=== PATIENT | female | born 1945 | race Caucasian/White ===

== ENCOUNTER → 2022-05-22 | Outpatient (CLI) | payer MEDICARE, BC, SELFPAY ==
[2022-05-22 12:08] LABS: Hematocrit 38.8 % (37-47); Hemoglobin 12.3 g/dL (12.0-15.0); Mean Corp Hgb Conc 31.7 g/dL (32-36); Mean Corpuscular Hgb 30.9 pg (27.0-32.0); Mean Corpuscular Volume 97.5 fL (81-99); Mean Platelet Vol. 10.7 fl (6.2-12.0); Platelet Count 245 K/mm3 (150-450); RBC Distribution Width CV 12.9 % (11.6-14.6); RBC Distribution Width SD 46.5 fl (35.1-43.9); Red Blood Count 3.98 M/mm3 (4.2-5.4); White Blood Count 5.4 K/mm3 (4.4-11.0)
[2022-05-22 12:25] LABS: Hemoglobin A1c 5.5 % (3.8-5.6)
[2022-05-22 12:29] LABS: Vitamin D,25 Hydroxy 81.5 ng/mL
[2022-05-22 12:58] LABS: ALB/GLOB Ratio 0.9 RATIO (0.9-2.4); AST(SGOT) 22 U/L (15-37); Alanine Aminotransfer ALT/SGPT 23 U/L (13-56); Albumin, Serum 3.3 g/dL (3.2-5.0); Alkaline Phosphatase 72 U/L (45-117); Anion Gap 8 (5-15); BUN 16 mg/dL (7-18); BUN/Creat Ratio 23.6 RATIO (10-20); Calcium,Total 9.1 mg/dL (8.5-10.1); Chloride 107 mmol/L (98-107); Cholesterol 148 mg/dL (200); Creatinine, Serum 0.68 mg/dL (0.55-1.02); EST Glomerular Filtration Rate 89 mL/min (>60); Est Glom Filt Rate - Afr Amer 108 mL/min (>60); Globulin 3.8 g/dL (2.2-4.2); Glucose 96 mg/dL (74-106); High Density Lipoprotein 60 mg/dL; Potassium 4.4 mmol/L (3.5-5.1); Protein, Total 7.1 g/dL (6.4-8.2); Sodium Level 140 mmol/L (136-145); Thyroid Stim Hormone (TSH) 4.01 uIU/mL (0.358-3.74); Triglycerides 88 mg/dL; Very Low Density Lipoprotein 18 mg/dL (5-40)
[2022-05-23 08:59] LABS: LDL, Direct 120295 78 mg/dL (0-99)
== END | disposition home or self-care (01) ==
PROVIDERS: PCP Family Medicine; Referring Provider Family Medicine; Visit Provider Family Medicine
DX: I11.0 Hypertensive heart disease with heart failure (principal); I50.9 Heart failure, unspecified; E11.9 Type 2 diabetes mellitus without complications; E78.2 Mixed hyperlipidemia; E03.9 Hypothyroidism, unspecified; E55.9 Vitamin D deficiency, unspecified
CPT/HCPCS: 36415; 80053; 80061; 82306; 83036; 83721; 84443; 85027

== ENCOUNTER → 2023-05-23 | Outpatient (CLI) | payer MEDICARE, BC, SELFPAY ==
[2023-05-23 12:27] LABS: Absolute Lymphocyte Count 1.29 X10^3/uL (0.83-4.51); Absolute Neutrophil Count 2.7 X10^3/uL (2.0-7.7); Basophil# 0.02 X10^3/uL; Basophil% 0.4 % (0-1); Eosinophil# 0.16 X10^3/uL; Eosinophils% 3.5 % (0-5); Hematocrit 40.6 % (37-47); Hemoglobin 12.6 g/dL (12.0-15.0); Lymphocyte # 1.29 X10^3/ul (0.83-4.51); Lymphocyte % 27.9 % (19-41); Mean Corpuscular Hgb 30.3 pg (27.0-32.0); Mean Corpuscular Volume 97.6 fL (81-99); Mean Platelet Vol. 10.8 fl (6.2-12.0); Monocyte# 0.46 X10^3/uL; NRBC Flagged by Analyzer 0 % (0-5); Neutrophil # 2.68 X10^3/uL (2.7-7.7); Platelet Count 233 K/mm3 (150-450); RBC Distribution Width CV 12.8 % (11.6-14.6); RBC Distribution Width SD 45.6 fl (35.1-43.9); Red Blood Count 4.16 M/mm3 (4.2-5.4); White Blood Count 4.6 K/mm3 (4.4-11.0)
[2023-05-23 13:02] LABS: ALB/GLOB Ratio 0.9 RATIO (0.9-2.4); AST(SGOT) 24 U/L (15-37); Alanine Aminotransfer ALT/SGPT 22 U/L (13-56); Albumin, Serum 3.5 g/dL (3.2-5.0); Alkaline Phosphatase 72 U/L (45-117); Anion Gap 4 (5-15); BUN 15 mg/dL (7-18); BUN/Creat Ratio 20.3 RATIO (10-20); Chloride 105 mmol/L (98-107); Cholesterol 160 mg/dL (200); Creatinine, Serum 0.74 mg/dL (0.55-1.02); EST Glomerular Filtration Rate 81 mL/min (>60); Est Glom Filt Rate - Afr Amer 98 mL/min (>60); Globulin 3.8 g/dL (2.2-4.2); Glucose 103 mg/dL (74-106); High Density Lipoprotein 66 mg/dL; Potassium 4.5 mmol/L (3.5-5.1); Protein, Total 7.3 g/dL (6.4-8.2); Sodium Level 139 mmol/L (136-145); Triglycerides 99 mg/dL; Very Low Density Lipoprotein 20 mg/dL (5-40)
[2023-05-23 13:35] LABS: Hemoglobin A1c 5.6 % (3.8-5.6)
== END | disposition home or self-care (01) ==
PROVIDERS: PCP Family Medicine; Referring Provider Family Medicine; Visit Provider Family Medicine
DX: E11.65 Type 2 diabetes mellitus with hyperglycemia (principal); E78.2 Mixed hyperlipidemia
CPT/HCPCS: 36415; 80053; 80061; 83036; 85025

== ENCOUNTER → 2023-10-22 | Outpatient (CLI) | payer MEDICARE, BC, SELFPAY ==
[2023-10-22 12:31] LABS: Absolute Lymphocyte Count 1.72 X10^3/uL (0.83-4.51); Absolute Neutrophil Count 2.9 X10^3/uL (2.0-7.7); Basophil# 0.03 X10^3/uL; Basophil% 0.5 % (0-1); Eosinophil# 0.28 X10^3/uL; Eosinophils% 5.1 % (0-5); Hematocrit 37.8 % (37-47); Hemoglobin 11.7 g/dL (12.0-15.0); Lymphocyte # 1.72 X10^3/ul (0.83-4.51); Lymphocyte % 31.5 % (19-41); Mean Corpuscular Hgb 30.9 pg (27.0-32.0); Mean Corpuscular Volume 99.7 fL (81-99); Monocyte% 9.2 % (0-10); NRBC Flagged by Analyzer 0 % (0-5); Neutrophil # 2.92 X10^3/uL (2.7-7.7); Neutrophil % 53.5 % (47-70); Platelet Count 219 K/mm3 (150-450); RBC Distribution Width CV 13.2 % (11.6-14.6); RBC Distribution Width SD 48.3 fl (35.1-43.9); Red Blood Count 3.79 M/mm3 (4.2-5.4); White Blood Count 5.5 K/mm3 (4.4-11.0)
[2023-10-22 12:59] LABS: Microalbumin,Random Urine 53.4 mg/L (NO RANGE EST.)
[2023-10-22 13:11] LABS: ALB/GLOB Ratio 0.9 RATIO (0.9-2.4); AST(SGOT) 27 U/L (15-37); Alanine Aminotransfer ALT/SGPT 28 U/L (13-56); Albumin, Serum 3.4 g/dL (3.2-5.0); Alkaline Phosphatase 90 U/L (45-117); Anion Gap 6 (5-15); BUN 20 mg/dL (7-18); BUN/Creat Ratio 24.7 RATIO (10-20); Calcium,Total 8.6 mg/dL (8.5-10.1); Chloride 104 mmol/L (98-107); Cholesterol 146 mg/dL (200); Creatinine, Serum 0.81 mg/dL (0.55-1.02); EST Glomerular Filtration Rate 72 mL/min (>60); Est Glom Filt Rate - Afr Amer 88 mL/min (>60); Globulin 3.8 g/dL (2.2-4.2); Glucose 82 mg/dL (74-106); High Density Lipoprotein 59 mg/dL; Potassium 5.2 mmol/L (3.5-5.1); Protein, Total 7.2 g/dL (6.4-8.2); Sodium Level 135 mmol/L (136-145); Triglycerides 106 mg/dL; Very Low Density Lipoprotein 21 mg/dL (5-40)
[2023-10-22 14:57] LABS: Hemoglobin A1c 5.7 % (3.8-5.6)
== END | disposition home or self-care (01) ==
LOC: MTLAB 09:55
PROVIDERS: PCP Family Medicine; Referring Provider Family Medicine; Visit Provider Family Medicine
DX: I10 Essential (primary) hypertension (principal); E11.65 Type 2 diabetes mellitus with hyperglycemia; E03.9 Hypothyroidism, unspecified
CPT/HCPCS: 80053; 80061; 82043; 82570; 83036; 84443; 85025

== ENCOUNTER → 2024-04-29 | Outpatient (CLI) | payer MEDICARE, BC, SELFPAY ==
[2024-04-29 13:14] LABS: Absolute Lymphocyte Count 1.62 X10^3/uL (0.83-4.51); Absolute Neutrophil Count 3.1 X10^3/uL (2.0-7.7); Basophil# 0.02 X10^3/uL; Basophil% 0.4 % (0-1); Eosinophils% 3.7 % (0-5); Hematocrit 41.7 % (37-47); Hemoglobin 12.6 g/dL (12.0-15.0); Lymphocyte # 1.62 X10^3/ul (0.83-4.51); Lymphocyte % 29.9 % (19-41); Mean Corp Hgb Conc 30.2 g/dL (32-36); Mean Corpuscular Volume 102.7 fL (81-99); Mean Platelet Vol. 11.5 fl (6.2-12.0); Monocyte# 0.46 X10^3/uL; Monocyte% 8.5 % (0-10); NRBC Flagged by Analyzer 0 % (0-5); Neutrophil # 3.09 X10^3/uL (2.7-7.7); Neutrophil % 56.9 % (47-70); Platelet Count 190 K/mm3 (150-450); RBC Distribution Width CV 13.1 % (11.6-14.6); RBC Distribution Width SD 49.6 fl (35.1-43.9); Red Blood Count 4.06 M/mm3 (4.2-5.4); White Blood Count 5.4 K/mm3 (4.4-11.0)
[2024-04-29 19:19] LABS: ALB/GLOB Ratio 1.3 RATIO (0.9-2.4); AST(SGOT) 28 U/L (<=31); Alanine Aminotransfer ALT/SGPT 18 U/L (<=34); Alkaline Phosphatase 87 U/L (35-104); Anion Gap 13 (5-15); BUN 18 mg/dL (4-19); BUN/Creat Ratio 28.5 RATIO (10-20); Calcium 9.8 mg/dL (7.6-11.0); Carbon Dioxide 22.2 mmol/L (22.0-29.0); Chloride 104 mmol/L (96-108); Creatinine, Serum 0.6 mg/dL (0.6-1.0); EST Glomerular Filtration Rate 90 (>60); Globulin 3.1 g/dL (2.2-4.2); Glucose 89 mg/dL (70-99); Potassium 5.3 mmol/L (3.3-5.1); Protein, Total 7.1 g/dL (5.9-8.4); Sodium Level 139 mmol/L (133-145)
[2024-04-30 12:00] LABS: Cholesterol 144 mg/dL (<=200); High Density Lipoprotein 61 mg/dL; Low Density Lipoprotein Calc. 62 mg/dL; Triglycerides 102 mg/dL; Very Low Density Lipoprotein 20 mg/dL (5-40); cholesterol:hdl ratio screen 2.35
[2024-04-30 13:44] LABS: Microalbumin,Random Urine 28.8 mg/L (NO RANGE EST.)
== END | disposition home or self-care (01) ==
LOC: MTLAB 09:34
PROVIDERS: PCP Family Medicine; Referring Provider Family Medicine; Visit Provider Family Medicine
DX: E03.9 Hypothyroidism, unspecified (principal); E11.65 Type 2 diabetes mellitus with hyperglycemia; I10 Essential (primary) hypertension; E78.2 Mixed hyperlipidemia
CPT/HCPCS: 36415; 80053; 80061; 82043; 82570; 83036; 85025

== ENCOUNTER → 2024-10-13 | Outpatient (CLI) | payer MEDICARE, BC, SELFPAY ==
--- OUTSIDE RECORDS SUMMARY | 2024-10-13 08:59 | XMS RPT_ITS | CCD ---
Author Organization [facility] CliniSyct Care Team Providers Care Brass Roller Name Role Phone Anabella Pena Primary Care Provider ANABELLA PENA Primary Care Unavailable NANCY DONOVAN Referring Unavailable NANCY DONOVAN Attending Unavailable ANABELLA PENA Primary Care Unavailable SELF Referring Unavailable NANCY DONOVAN Attending Unavailable ANABELLA PENA Primary Care Unavailable AYLIN REILLY Attending Unavailable INDIRA ISABEL Primary Care Unavailable Jean ESQUEDA, Dr. Rand Primary Care Provider INDIRA ISABEL DO Attending Provider [phone] INDIRA ISABEL DO Referring Provider INDIRA ISABEL Referring Unavailable INDIRA ISABEL Attending Unavailable Anabella Pena Primary Care Unavailable Anabella Pena Primary Care Unavailable INDIRA ISABEL Referring Unavailable INDIRA ISABEL Attending Unavailable Medications Current Medications Medication Drug Class(es) Dates Sig (Normalized) Sig (Original) ANTIOX #8/OM3/DHA/EPA/LUT/ZEAX (PRESERVISION AREDS 2, OMEGA-3, ORAL) (10 sources) ANTIOX #8/OM3/DHA/EPA/LUT/ZEAX (PRESERVISION AREDS 2, OMEGA-3, ORAL) Take by mouth two times a day. Active ANTIOX #8/OM3/DH A/EPA/LUT/ZEAX (PRESERVISION AREDS 2, OMEGA-3, ORAL) Take by mouth two times a day. 0 Active ANTIOX #8/OM3/DH A/EPA/LUT/ZEAX (PRESERVISION AREDS 2, OMEGA-3, ORAL) Take by mouth twice daily. 0 Active Comment on above: Take by mouth twice daily. aspirin 81 mg chewable tablet (10 sources) Platelet Aggregation Inhibitor, Nonsteroidal Anti-inflammatory Drug Start: 04-17-2008 take 1 tablet by mouth once daily ASPIRIN 81 MG CHEWABLE TAB 1 Tab PO DAILY 30 0 04/17/2008 Active Start: 04-17-2008 take 1 tablet by mark once daily ASPIRIN 81 MG CHEWABLE TAB 1 Tab PO DAILY 30 0 04/17/2008 Active Comment on above: 1 Tab PO DAILY atorvastatin 20 mg oral tablet (10 sources) HMG-CoA Reductase Inhibitor Start: take 1 tablet by mouth once daily atorvastatin (LIPITOR) 20 mg tablet Take 1 tablet by mouth once daily. 90 tablet 3 07/16/2012 Active Comment on above: Take 1 tablet by mark once daily. benoxinate hydrochloride 4 mg/ml / fluorescein sodium 3 mg/ml ophthalmic solution (1 source) Diagnostic Dye Start: End: fluorescein-benoxin ate 0.3-0.4 % 1 Drop (FLURESS) carvedilol 12.5 mg oral tablet (10 sources) alpha-Adrenergic Brian, beta-Adrenergic Brian Start: take 1 tablet by mouth twice daily at mealtime carvedilol (COREG) 12.5 mg tablet Take 1 tablet by mouth twice daily with meals. 0 07/16/2012 Active Comment on above: Take 1 tablet by mark twice daily with meals. cholecalciferol 0.125 mg oral capsule (10 sources) Vitamin D Start: take 1 capsule by mouth once daily Cholecalciferol, Vitamin D3, 5,000 unit cap Take 1 capsule by mouth once daily. 06/20/2018 Active Comment on above: Take 1 capsule by [facility] once daily. insulin glargine 100 unt/ml injectable solution (10 sources) Insulin Analog Start: 013 insulin glargine (LANTUS) 100 unit/mL injection 48 units at bedtime 0 07/16/2012 Active Comment on above: 48 units at bedtime insulin glulisine, human 100 unt/ml injectable solution (10 sources) Insulin Analog Start: 009 inject 7 [IU] by subcutaneous injection at mealtime insulin glulisine(APIDRA 100 UNIT/ML SUB-Q) Take 7 units with each meal and sliding scale 0 12/25/2008 Active Comment on above: Take 7 units with ea ch meal and sliding scale levothyroxine sodium 0.025 mg oral tablet (10 sources) l-Thyroxine Start: 010 levothyroxine sodium(SYNTHROID 25 MCG TAB) Take one(1) tablet daily and 1.5 tablets on Sunday and Sunday 0 10/15/2009 Active Comment on above: Take one(1) tablet d aily and 1.5 tablets on Sunday and Sunday lisinopril 5 mg oral tablet (10 sources) Angiotensin Converting Enzyme Inhibitor Start: 013 take 1 tablet by mouth twice daily lisinopril (ZESTRIL) 5 mg tablet Take 1 tablet by mouth twice daily. 07/16/2012 Active Comment on above: Take [address] [facility] twice daily. PARoxetine hydrochloride 20 mg oral tablet (10 sources) Serotonin Reuptake Inhibitor Start: 009 paroxetine hcl(PAXIL 20 MG TAB) Take one(1) tablet daily. 0 07/15/2008 Active Comment on above: Take one(1) tablet d aily. phenylephrine hydrochloride 25 mg/ml ophthalmic solution (3 sources) alpha-1 Adrenergic Agonist Start: 025 End: 025 PHENYLephrine 2.5 % 1 Drop (AK-DILATE, CARLENE-SYNEPHRINE) Start: 04-10-2024 End: 04-10-2024 1 Drop, BOTH EYES, DIRECT ED, Starting on Kelly 04/10/24 at 0900, Until Kelly 04/10/24 at 2058, Administer for dilation PROTECT FROM LIGHT, [facility] MED ORDERS Start: 10-04-2023 End: 10-04-2023 PHENYLephrine 2.5 % 1 Drop ( AK-DILATE, CARLENE-SYNEPHRINE) proparacaine hydrochloride 5 mg/ml ophthalmic solution (3 sources) Local Anesthetic Start: 04-10-2024 End: 04-10-2024 proparacaine 0.5 % 1 Drop (ALCAINE) Start: 04-10-2024 End: 04-10-2024 1 Drop, BOTH EYES, DIRECT ED, Starting on Kelly 04/10/24 at 0900, Until Kelly 04/10/24 at 2058, Administer for pneumo tonometry, tonopen tonometry, or pachymetry. In the event of a proparacaine shortage, administer 1 drop of tetracaine 0.5% ophthalmic drops into both eyes as directed for pneumo tonometry, tonopen tonometry, or pachymetry, OPHT CLINIC MED ORDERS Start: 10-04-2023 End: 10-04-2023 proparacaine 0.5 % 1 Drop (A LCAINE) SEMGLEE,INSULIN GLARG-YFGN,PEN 100 unit/mL (3 mL) insulin pen (2 sources) Start: 09-29-2023 inject 10 [IU] by subcutaneous injection once daily in the morning SEMGLEE,INSULIN GLARG-YFGN,PEN 100 unit/mL (3 mL) insulin pen Inject 10 Units subcutaneously every morning. 09/29/2023 Active Start: 09-29-2023 inject 10 [IU] by mandujano bcutaneous injection once daily in the morning SEMGLEE,INSULIN GLARG-YFGN,PEN 100 unit/mL (3 mL) insulin pen Inject 10 Units subcutaneously every morning. 0 09/29/2023 Active spironolactone 25 mg oral tablet (10 sources) Aldosterone Antagonist Start: 12-25-2008 take 0.5 tablet by mouth once daily SPIRONOLACTONE 25 MG TAB 1/2 Tab ORAL DAILY 90 3 12/25/2008 Active Comment on above: 1/2 Tab ORAL DAILY tropicamide 10 mg/ml ophthalmic solution (3 sources) Anticholinergic Start: 04-10-2024 End: 04-10-2024 tropicamide 1 % 1 Drop (MYDRIACYL) Start: 04-10-2024 End: 04-10-2024 1 Drop, BOTH EYES, DIRECT ED, Starting on Kelly 04/10/24 at 0900, Until Kelly 04/10/24 at 2058, Administer for dilation, OPHT CLINIC MED ORDERS Start: 10-04-2023 End: 10-04-2023 tropicamide 1 % 1 Drop (MYDR IACYL) Problems Active Problems Problem Classification Problem Date Documented Date Episodic/Chronic Cardiac dysrhythmias (10 sources) Atrial fibrillation; Translations: [Unspecified atrial fibrillation] Onset: 04-02-2008 07-15-2008 Chronic Conduction disorders (13 sources) Cardiac defibrillator in situ; Translations: [Presence of automatic (implantable) cardiac defibrillator] Onset: 03-25-2008 Resolved: 07-15-2008 08-18-2019 Chronic Congestive heart failure; nonhypertensive (10 sources) Chronic systolic heart failure; Translations: [Chronic systolic (congestive) heart failure] Onset: 04-01-2008 04-16-2009 Chronic Coronary atherosclerosis and other heart disease (10 sources) Ischemic myocardial dysfunction; Translations: [Ischemic cardiomyopathy] Onset: 08-18-2019 08-18-2019 Chronic Diabetes mellitus with complications (4 sources) Type 2 diabetes mellitus with moderate nonproliferative diabetic retinopathy without macular edema, bilateral; Translations: [Diabetes with ophthalmic manifestations, type II or unspecified type, not stated as uncontrolled] Onset: 08-18-2019 10-03-2023 Chronic Diabetes mellitus without complication (10 sources) Type 2 diabetes mellitus; Translations: [Type 2 diabetes mellitus without complications] Onset: 05-09-2010 08-18-2019 Chronic Essential hypertension (20 sources) Essential hypertension; Translations: [Essential (primary) hypertension] Onset: 11-13-2023 06-20-2018 Chronic Other and unspecified benign neoplasm (1 source) History of polyp of colon; Translations: [Personal history of colonic polyps] Episodic Other endocrine disorders (1 source) Hypoglycemia, unspecified; Translations: [Hypoglycemia] Onset: 05-28-2024 Chronic Residual codes; unclassified (1 source) Altered mental status, unspecified; Translations: [Altered mental status, unspecified altered mental status type] Onset: 05-28-2024 Episodic Retinal detachments; defects; vascular occlusion; and retinopathy (2 sources) Nonexudative age-related macular degeneration; Translations: [Nonexudative age-related macular degeneration, bilateral, advanced atrophic with subfoveal involvement] 10-04-2023 Chronic Thyroid disorders (1 source) Hypothyroidism, unspecified; Translations: [Hypothyroidism, unspecified] Onset: 05-13-2024 Chronic Past or Other Problems Problem Classification Problem Date Documented Date Episodic/Chronic Developmental disorders (3 sources) Other and unspecified special symptoms or syndromes, not elsewhere classified; Translations: [Other and unspecified special symptom or syndrome, not elsewhere classified] Onset: 04-02-2008 Resolved: 04-10-2008 Chronic Malaise and fatigue (3 sources) Asthenia; Translations: [Other malaise] Onset: 04-10-2008 Resolved: 07-15-2008 07-15-2008 Episodic Nutritional deficiencies (3 sources) Malnutrition (calorie); Translations: [Moderate protein-calorie malnutrition] Onset: 04-02-2008 Resolved: 07-15-2008 07-15-2008 Chronic Other aftercare (1 source) terminal gauger (current) use of insulin; Translations: [Type 2 diabetes mellitus with both eyes affected by moderate nonproliferative retinopathy without macular edema, with long-term current use of insulin (HCC)] Onset: 08-18-2019 Episodic Pneumonia (except that caused by tuberculosis or sexually transmitted disease) (3 sources) Pneumonia, unspecified organism; Translations: [Pneumonia, organism unspecified] Onset: 04-08-2008 Resolved: 06-01-2008 06-01-2008 Episodic Respiratory failure; insufficiency; arrest (adult) (3 sources) Acute respiratory failure; Translations: [Acute respiratory failure, unspecified whether with hypoxia or hypercapnia] Onset: 04-01-2008 Resolved: 04-16-2008 07-15-2008 Episodic Septicemia (except in labor) (3 sources) Sepsis; Translations: [Sepsis, unspecified organism] Onset: 04-05-2008 Resolved: 06-01-2008 06-01-2008 Episodic Results Test Name Value Interpretation Reference Range Facility Microalb:Creat Ratio,Random URon 09-29-2024 MALB:CREAT 60.0 mg/g CRE High <30 mg/g CRE [facility] Comment on above: Result Comment: A AMENDED REPORT 09/29/241932 MALB:CREAT previously reported as: 600.0 mg/g CRE Performed By: #### L 501.9985, L501.9520, L502.0250, L500.4100, L500.4050, L100.0100 #### [facility] [address] [place], [address] CBC W Auto Differential pane l (Bld)on 05-28-2024 Basophils (Bld) [#/Vol] 0.03 10*3/uL Normal <0.11 [facility] Comment on above: Order Comment: Speci men Type: BLOOD SPECIMEN Ordering Facility: [facility] Address: [address] [place] [address] Performed By: #### 5 7021-8 #### [facility] CLIA [id number] [address] [place] [address] [place] Basophils/100 WBC (Bld) 0.3 % Normal [facility] Comment on above: Order Comment: Speci men Type: BLOOD SPECIMEN Ordering Facility: [facility] Address: [address] [place] [address] Performed By: #### 5 7021-8 #### [facility] CLIA [id number] [address] [place] [address] [place] Differential cell count method Nom (Bld) Auto Normal [facility] Comment on above: Order Comment: Speci men Type: BLOOD SPECIMEN Ordering Facility: [facility] Address: [address] [place] [address] Performed By: #### 5 7021-8 #### [facility] CLIA [id number] [address] [place] [address] [place] Eosinophils (Bld) [#/Vol] 0.19 10*3/uL Normal <0.46 [facility] Comment on above: Order Comment: Speci men Type: BLOOD SPECIMEN Ordering Facility: [facility] Address: [address] [place] [address] Performed By: #### 5 7021-8 #### [facility] CLIA [id number] [address] [place] [address] [facility] [place] Eosinophils/100 WBC (Bld) 1.6 % Normal [facility] Comment on above: Order Comment: Speci men Type: BLOOD SPECIMEN Ordering Facility: [facility] Address: [address] [place] [address] Performed By: #### 5 7021-8 #### [facility] CLIA [id number] [address] [place] [address] [facility] [place] Erythrocyte distribution width (RBC) [Ratio] 12.9 % Normal 11.5-15.0 [facility] Comment on above: Order Comment: Speci men Type: BLOOD SPECIMEN Ordering Facility: [facility] Address: [address] [place] [address] Performed By: #### 5 7021-8 #### [facility] CLIA [id number] [address] [place] [address] [place] Hematocrit (Bld) [Volume fraction] 39.1 % Normal 36.0-46.0 [facility] Comment on above: Order Comment: Speci men Type: BLOOD SPECIMEN Ordering Facility: [facility] Address: [address] [place] [address] Performed By: #### 5 7021-8 #### [facility] CLIA [id number] [address] [place] [address] [place] Hemoglobin (Bld) [Mass/Vol] 12.5 g/dL Normal 11.5-15.5 [facility] Comment on above: Order Comment: Speci men Type: BLOOD SPECIMEN Ordering Facility: [facility] Address: [address] [place] [address] Performed By: #### 5 7021-8 #### [facility] CLIA [id number] [address] [place] [address] [place] Immature granulocytes (Bld) [#/Vol] 10*3/uL Normal <0.10 [facility] Comment on above: Order Comment: Speci men Type: BLOOD SPECIMEN Ordering Facility: [facility] Address: [address] [place] [address] Performed By: #### 5 7021-8 #### [facility] CLIA [id number] [address] [place] [address] [place] Immature granulocytes/100 WBC (Bld) 0.2 % Normal [facility] Comment on above: Order Comment: Speci men Type: BLOOD SPECIMEN Ordering Facility: [facility] Address: [address] [place] [address] Performed By: #### 5 7021-8 #### [facility] CLIA [id number] [address] [place] [address] [place] Lymphocytes (Bld) [#/Vol] 2.00 10*3/uL Normal 1.00-4.0 0 [facility] Comment on above: Order Comment: Speci men Type: BLOOD SPECIMEN Ordering Facility: [facility] Address: [address] [place] [address] Performed By: #### 5 7021-8 #### [facility] CLIA [id number] [address] [place] [address] [facility] Lymphocytes/100 WBC (Bld) 17.1 % Normal [facility] Comment on above: Order Comment: Speci men Type: BLOOD SPECIMEN Ordering Facility: [facility] Address: [address] [place] [address] Performed By: #### 5 7021-8 #### [facility] CLIA [id number] [address] [place] MCH (RBC) [Entitic mass] 32.0 pg Normal 26.0-34.0 [facility] Comment on above: Order Comment: Speci men Type: BLOOD SPECIMEN Ordering Facility: [facility] Address: [address] [place] [address] Performed By: #### 5 7021-8 #### [facility] CLIA [id number] [address] [place] MCHC (RBC) [Mass/Vol] 32.0 g/dL Normal 30.5-36.0 [facility] Comment on above: Order Comment: Speci men Type: BLOOD SPECIMEN Ordering Facility: [facility] Address: [address] [place] [address] Performed By: #### 5 7021-8 #### [facility] CLIA [id number] [address] [place] [address] [place] MCV (RBC) [Entitic vol] 100.0 fL Normal 80.0-100.0 [facility] Comment on above: Order Comment: Speci men Type: BLOOD SPECIMEN Ordering Facility: [facility] Address: [address] [place] [address] Performed By: #### 5 7021-8 #### [facility] CLIA [id number] [address] [place] [address] [place] Monocytes (Bld) [#/Vol] 0.92 10*3/uL High <0.87 [facility] Comment on above: Order Comment: Speci men Type: BLOOD SPECIMEN Ordering Facility: [facility] Address: [address] [place] [address] Performed By: #### 5 7021-8 #### [facility] CLIA [id number] [address] [place] [address] [place] Monocytes/100 WBC (Bld) 7.9 % Normal A [facility] Comment on above: Order Comment: Speci men Type: BLOOD SPECIMEN Ordering Facility: [facility] Address: [address] [place] [address] Performed By: #### 5 7021-8 #### [facility] CLIA [id number] [address] [place] [address] [place] Neutrophils (Bld) [#/Vol] 8.53 10*3/uL High 1.45-7.5 0 [facility] Comment on above: Order Comment: Speci men Type: BLOOD SPECIMEN Ordering Facility: [facility] Address: [address] [place] [address] Performed By: #### 5 7021-8 #### [facility] CLIA [id number] [address] [place] [address] [place] Neutrophils/100 WBC (Bld) 72.9 % Normal [facility] Comment on above: Order Comment: Speci men Type: BLOOD SPECIMEN Ordering Facility: [facility] Address: [address] [place] [address] Performed By: #### 5 7021-8 #### [facility] CLIA [id number] [address] [place] [address] [place] Nucleated RBC (Bld) [#/Vol] Normal [facility] Comment on above: Order Comment: Speci men Type: BLOOD SPECIMEN Ordering Facility: [facility] Address: [address] [place] [address] Performed By: #### 5 7021-8 #### [facility] CLIA [id number] [address] [place] [address] [place] Nucleated RBC/100 WBC (Bld) [Ratio] Normal [facility] Comment on above: Order Comment: Speci men Type: BLOOD SPECIMEN Ordering Facility: [facility] Address: [address] [place] [address] Performed By: #### 5 7021-8 #### [facility] CLIA [id number] [address] [place] [address] [place] Platelet mean volume (Bld) [Entitic vol] 11.9 fL Normal 9.0-12.7 [facility] Comment on above: Order Comment: Speci men Type: BLOOD SPECIMEN Ordering Facility: [facility] Address: [address] [place] [address] Performed By: #### 5 7021-8 #### [facility] CLIA [id number] [address] [place] [address] [place] Platelets (Bld) [#/Vol] 211 10*3/uL Normal 150-400 [facility] Comment on above: Order Comment: Speci men Type: BLOOD SPECIMEN Ordering Facility: [facility] Address: [address] [place] [address] Performed By: #### 5 7021-8 #### [facility] CLIA [id number] [address] [place] [address] [place] RBC (Bld) [#/Vol] 3.91 10*6/uL Normal 3.90-5.20 [facility] Comment on above: Order Comment: Speci men Type: BLOOD SPECIMEN Ordering Facility: [facility] Address: [address] [place] [address] Performed By: #### 5 7021-8 #### [facility] CLIA [id number] [address] [place] [address] [place] WBC (Bld) [#/Vol] 11.69 10*3/uL High 3.70-11.00 [facility] Comment on above: Order Comment: Speci men Type: BLOOD SPECIMEN Ordering Facility: [facility] Address: [address] [id number] Performed By: #### 5 7021-8 #### [facility] CLIA [id number] [address] [place] [address] [facility] Comprehensive metabolic 2000 panelon 05-28-2024 Albumin [Mass/Vol] 3.9 g/dL Normal 3.9-4.9 [facility] Comment on above: Order Comment: Speci men Type: BLOOD SPECIMEN Ordering Facility: [facility] Address: [address] [place], [place] [address] Performed By: #### 2 4323-8 #### [facility] CLIA [id number] [address] [place] [address] [place] ALP [Catalytic activity/Vol] 92 U/L Normal 34-123 [facility] Comment on above: Order Comment: Speci men Type: BLOOD SPECIMEN Ordering Facility: [facility] Address: [address] [id number] Performed By: #### 2 4323-8 #### [facility] CLIA [id number] [address] [place] [address] [facility] [place] ALT With P-5'-P [Catalytic activity/Vol] 13 U/L Normal 7-38 [facility] Comment on above: Order Comment: Speci men Type: BLOOD SPECIMEN Ordering Facility: [facility] Address: [address] [place], [place] [address] Performed By: #### 2 4323-8 #### [facility] CLIA [id number] [address] [place] [address] [place] Anion gap [Moles/Vol] 11 mmol/L Normal 8-15 [facility] Comment on above: Order Comment: Speci men Type: BLOOD SPECIMEN Ordering Facility: [facility] Address: [address] [id number] Performed By: #### 2 4323-8 #### [facility] CLIA [id number] [address] [place] [address] [place] AST With P-5'-P [Catalytic activity/Vol] 17 U/L Normal 13-35 [facility] Comment on above: Order Comment: Speci men Type: BLOOD SPECIMEN Ordering Facility: [facility] Address: [address] [place] [address] Performed By: #### 2 4323-8 #### [facility] CLIA [id number] [address] [place] [address] [place] Bilirubin [Mass/Vol] 0.2 mg/dL Normal 0.2-1.3 [facility] Comment on above: Order Comment: Speci men Type: BLOOD SPECIMEN Ordering Facility: [facility] Address: [address] [place] [address] Performed By: #### 2 4323-8 #### [facility] CLIA [id number] [address] [place] [address] [place] Calcium [Mass/Vol] 9.6 mg/dL Normal 8.5-10.2 [facility] Comment on above: Order Comment: Speci men Type: BLOOD SPECIMEN Ordering Facility: [facility] Address: [address] [place] [address] Performed By: #### 2 4323-8 #### [facility] CLIA [id number] [address] [place] [address] [place] Chloride [Moles/Vol] 100 mmol/L Normal 98-107 [facility] Comment on above: Order Comment: Speci men Type: BLOOD SPECIMEN Ordering Facility: [facility] Address: [address] [place] [address] Performed By: #### 2 4323-8 #### [facility] CLIA [id number] [address] [place] [address] [place] CO2 [Moles/Vol] 25 mmol/L Normal 22-30 [facility] Comment on above: Order Comment: Speci men Type: BLOOD SPECIMEN Ordering Facility: [facility] Address: [address] [place] [address] Performed By: #### 2 4323-8 #### [facility] CLIA [id number] [address] [place] [address] [place] Creatinine [Mass/Vol] 0.57 mg/dL Low 0.58-0.96 [facility] Comment on above: Order Comment: Garrett page Type: BLOOD SPECIMEN Ordering Facility: [facility] Address: [address] [place] [address] Performed By: #### 2 4323-8 #### [facility] CLIA [id number] [address] [place] [address] [place] Creatinine and Glomerular filtration rate.predicted panel (S/P/Bld) 93 mL/min/1.73m??? Normal >=60 [facility] Comment on above: Order Comment: Garrett page Type: BLOOD SPECIMEN Ordering Facility: [facility] Address: [address] [place] [address] Result Comment: Sabrina mated Glomerular Filtration Rate (eGFR) is calculated using the 2020 CKD-EPI creatinine equation. This equation utilizes serum creatinine, sex, and age as parameters. The creatinine assay has traceable calibration to isotope dilution-mass spectrometry. Refer to KDIGO guidelines for clinical interpretation. In patients with unstable renal function, e.g. those with acute kidney injury, the eGFR may not accurately reflect actual GFR. Performed By: #### 2 4323-8 #### [facility] CLIA [id number] [address] [place] [address] [place] Glucose [Mass/Vol] 120 mg/dL High 74-99 [facility] Comment on above: Order Comment: Garrett page Type: BLOOD SPECIMEN Ordering Facility: [facility] Address: [address] [place] [address] Result Comment: The [place] Diabetes Association (ADA) provides guidance for cutoff values for fasting glucose and random glucose. The ADA defines fasting as no caloric intake for at least 8 hours. Fasting plasma glucose results between 100 to 125 mg/dL indicate increased risk for diabetes (prediabetes). Fasting plasma glucose results greater than or equal to 126 mg/dL meet the criteria for diagnosis of diabetes. In the absence of unequivocal hyperglycemia, results should be confirmed by repeat testing. In a patient with classic symptoms of hyperglycemia or hyperglycemic crisis, random plasma glucose results greater than or equal to 200 mg/dL meet the criteria for diagnosis of diabetes. Reference: Standards of Medical Care in Diabetes 2016, [place] [employer] Association. Diabetes Care. 2016.39(Suppl 1). Performed By: #### 2 4323-8 #### [facility] CLIA [id number] [address] [place] [address] [place] Potassium [Moles/Vol] 4.3 mmol/L Normal 3.7-5.1 [facility] Comment on above: Order Comment: Speci men Type: BLOOD SPECIMEN Ordering Facility: [facility] Address: [address] [place] [address] Performed By: #### 2 4323-8 #### [facility] CLIA [id number] [address] [place] [address] [place] Protein [Mass/Vol] 6.8 g/dL Normal 6.3-8.0 [facility] Comment on above: Order Comment: Speci men Type: BLOOD SPECIMEN Ordering Facility: [facility] Address: [address] [place] [address] Performed By: #### 2 4323-8 #### [facility] CLIA [id number] [address] [place] [address] [place] Sodium [Moles/Vol] 136 mmol/L Normal 136-144 [facility] Comment on above: Order Comment: Speci men Type: BLOOD SPECIMEN Ordering Facility: [facility] Address: [address] [place] [address] Performed By: #### 2 4323-8 #### [facility] CLIA [id number] [address] [place] [address] [place] Urea nitrogen [Mass/Vol] 19 mg/dL Normal 7-21 [facility] Comment on above: Order Comment: Speci men Type: BLOOD SPECIMEN Ordering Facility: [facility] Address: [address] [place] [address] Performed By: #### 2 4323-8 #### [facility] CLIA [id number] [address] [place] [address] ED NOTEon 05-28-2024 ED NOTE HNO ID: [id number] Author: RITA ARGUETA, IRMA Service: Nursing Author Type: Registered Nurse Type: ED Notes Filed: 05/28/2024 21:59 Note Text: Pt verbalizes understanding of discharge instructions. Pt assisted out of ED in wheelchair Normal [facility] ED NOTE HNO ID: [id number] Author: RITA ARGUETA, RN Service: Nursing Author Type: Registered Nurse Type: ED Notes Filed: 05/28/2024 20:48 Note Text: Food and drink given Normal [facility] ED NOTE HNO ID: [id number] Author: RITA ARGUETA, IRMA Service: Nursing Author Type: Registered Nurse Type: ED Notes Filed: 05/28/2024 19:32 Note Text: EMS reports pt's blood sugar was 47 upon arrival to her home, they gave glucagon which did not help much then IV dextrose and sugar came up to 230. Pt did not want to come to hospital but they checked her BG again shortly after and it was down to 171. EMS said this was about 30 minutes [employer]. Two sons live with pt and they noticed pt was sluggish so they gave her juice. Then called 911 because she was unresponsive. Pt states she was talking to her son at the kitchen table then does not recall what happened after that. Normal [facility] ED PROV NOTEon 05-28-2024 ED PROV NOTE HNO ID: [id number] Author: AYLIN REILLY MD Service: Emergency Medicine Author Type: Physician Type: ED Provider Notes Filed: 05/28/2024 21:46 Note Text: ED Provider Note Patient Name: Allie Murillo : 1945 SERVICE DATE: 05/28/24 History Patient presents with: Low Blood Sugar Allie Murillo is a 78 year old female with history of insulin-dependent diabetes who presents with Low Blood Sugar. Patient took juice prior to arrival. - Symptoms began 30 minutes prior to arrival. - Severity: moderate - Timin episode - Quality: Low blood sugar and altered mental status - Low Blood Sugar is exacerbated by nothing. - Low Blood Sugar is not exacerbated by anything. - Symptoms are associated with took insulion but forgot to eat . - Symptoms are not associated with chest pain, fever, and shortness of breath. - Improved by glucagon and d50 by EMS. - Not improved by p.o. juice at home The patient arrives Emergency Department by EMS awake alert at her baseline she initially had a altered mental status with a low blood sugar in the field of 47 family member suspected the sugar to be low try to give her juice that did not help EMS give her glucagon and then gave her IV dextrose and her blood sugar was 171 when she arrived. The patient states that she took her normal insulin dose tonight but then did not get her dinner made in time and she believes this is what caused low sugar. She recently was set up with a Dexcom meter but does not have it hooked up yet because her phone is not compatible. The situation is given be addressed tomorrow she can call her doctor and get the monitor for the meter. She has no complaints on arrival. PAST MEDICAL HISTORY Diagnosis Date - Anxiety state, unspecified - Atrial fibrillation (HCC) - CAD (coronary artery disease) s/p CABG - Diseases of tricuspid valve - HTN (hypertension) - Other and unspecified hyperlipidemia - Other and unspecified mitral valve diseases - Type II or unspecified type diabetes mellitus without mention of complication, uncontrolled PAST SURGICAL HISTORY Procedure Laterality Date - COLONOSCOPY FLX DX W/COLLJ SPEC WHEN PFRMD 07/15/2015 Colonoscopy - CORONARY ARTERY BYPASS 2 CORONARY VENOUS GRAFTS 03/31/2008 - PAST SURGICAL HISTORY OF pacemaker/defibulat or - REMV CATARACT EXTRACAP,INSERT LENS Bilateral 2012 [facility] - REPLACEMENT MITRAL VALVE W/CARDIOPULMONARY BYP 2019 Mitral valve replacement FAMILY HISTORY Problem Relation Age of Onset - Heart Failure Mother - Heart Failure Father - Kidney Disease Brother Social History Tobacco Use - Smoking status: Never - Smokeless tobacco: Never Vaping Use - Vaping status: Never Used Substance and Sexual Activity - Alcohol use: No - Drug use: No - Sexual activity: Not on file Comment: not asked ALLERGIES No Known Allergies Review of Systems Constitutional: Negative for chills and fever. Respiratory: Negative for cough and shortness of breath. Cardiovascular: Negative for chest pain and palpitations. Gastrointestinal: Negative for nausea and vomiting. Musculoskeletal: Negative for back pain and neck pain. Allergic/Immunologi c: Negative for environmental allergies and food allergies. Psychiatric/Behavio ral: Negative for confusion. The patient is not nervous/anxious. Physical Exam Vitals [05/28/241924] BP Pulse Temp Temp src Resp SpO2 Weight Height 190/79 59 36.6 ?C (97.8 ?F) -- 16 100 % 65.8 kg (145 lb) -- Physical Exam Vitals and nursing note reviewed. Constitutional: General: She is not in acute distress. Appearance: Normal appearance. She is not ill-appearing, toxic-appearing or diaphoretic. HENT: Head: Normocephalic and atraumatic. Cardiovascular: Rate and Rhythm: Normal rate and regular rhythm. Pulmonary: Effort: Pulmonary effort is normal. No respiratory distress. Abdominal: Palpations: Abdomen is soft. Tenderness: There is no abdominal tenderness. Musculoskeletal: General: No swelling or tenderness. Cervical back: Normal range of motion. No tenderness. Skin: General: Skin is warm and dry. Capillary Refill: Capillary refill takes less than 2 seconds. Findings: No rash. Neurological: General: No focal deficit present. Mental Status: She is alert and oriented to person, place, and time. Psychiatric: Mood and Affect: Mood normal. Behavior: Behavior normal. Thought Content: Thought content normal. Judgment: Judgment normal. Diagnostic Testing ED Labs Ordered and Reviewed GLUCOSE, BLOOD (POC) - Abnormal; Notable for the following components: Result Value Ref Range Glucose, Point of Care 168 (*) 74 - 99 mg/dL All other components within normal limits COMPREHENSIVE METABOLIC PANEL COMPLETE BLOOD COUNT AND DIFFERENTIAL Procedures ED Course / Clinical Impression Clinical Impressions as of 05/28/24 2147 Hypoglycemia Diabetes mellitus with unspecified comp (more content not included)... Normal [facility] Hemoglobin A1con 04-30-2024 HbA1c (Bld) [Mass fraction] 6.0 % Normal <=5.6 [facility] Comment on above: Performed By: #### L 501.9985, L501.9520, L502.0250, L500.4100, L500.4050, L100.0100 #### [facility] [address], [address] Lipid Profileon 04-30-2024 CHOL:HDL 2.35 Normal [facility] Comment on above: Performed By: #### L 501.9985, L501.9520, L502.0250, L500.4100, L500.4050, L100.0100 #### [facility] [address] [place], [address] Cholesterol [Mass/Vol] 144 mg/dL Normal <=[address] [facility] Comment on above: Result Comment: Chol esterol level, Desirable <200 mg/dL Borderline high cholesterol 200-239 mg/dL High cholesterol >=240 mg/dL Recommendations of the NCEP Adult Treatment Panel for the following risk-cutoff thresholds for the [place] population. Performed By: #### L 501.9985, L501.9520, L502.0250, L500.4100, L500.4050, L100.0100 #### [facility] [address] [place], [address] Cholesterol in HDL [Mass/Vol] 61 mg/dL Normal [facility] Comment on above: Result Comment: Carlene onal Cholesterol Education Program (NCEP) guidelines: <40 mg/dL: Low HDL-cholesterol (major risk factor for CHD) >= 60 mg/dL: High HDL-cholesterol (negative risk factor for CHD) HDL-cholesterol is affected by a number of factors, e.g. smoking, exercise, hormones, sex and age. Performed By: #### L 501.9985, L501.9520, L502.0250, L500.4100, L500.4050, L100.0100 #### [facility] [address] [place], [address] Cholesterol in LDL [Mass/Vol] 62 mg/dL Normal [facility] Comment on above: Result Comment: Bord mztwuu=395-068 mg/dL Higher Aefz=843 mg/dL or greater Performed By: #### L 501.9985, L501.9520, L502.0250, L500.4100, L500.4050, L100.0100 #### [facility] [address] [place], [address] Cholesterol in VLDL [Mass/Vol] 20 mg/dL Normal 5-40 [facility] Comment on above: Performed By: #### L 501.9985, L501.9520, L502.0250, L500.4100, L500.4050, L100.0100 #### [facility] [address] [facility] [place], [address] Triglyceride [Mass/Vol] 102 mg/dL Normal [facility] Comment on above: Result Comment: The drugs N-Acetylcysteine and Metamizole may falsely depress this assay. Normal range: <150 mg/dL Borderline High: 150-199 mg/dL High: 200-499 mg/dL Very High: >500 mg/dL Performed By: #### L 501.9985, L501.9520, L502.0250, L500.4100, L500.4050, L100.0100 #### [facility] [address] [place], [address] Absolute neutrophil countOrd ered By: INDIRA ISABEL on 04-29-2024 Neutrophils (Bld) [#/Vol] 3.1 10*3/uL 2.0-7.7 [facility] Albumin DL <= 20 mg/L (U) [M ass/Vol]Ordered By: INDIRA ISABEL on 04-29-2024 Urine Random Microalbumin 28.8 mg/L NO RANGE E [facility] BUN/creatinine ratioOrdered By: INDIRA ISABEL on 04-29-2024 Urea nitrogen/Creatinine [Mass ratio] 28.5 mg/mg High 10-20 [facility] Basophil percentageOrdered B y: INDIRA ISABEL on 04-29-2024 Basophils/100 WBC (Bld) 0.4 % 0-1 [facility] Bilirubin, totalOrdered By: INDIRA ISABEL on 04-29-2024 Bilirubin [Mass/Vol] 0.30 mg/dL 0.00-1.30 [facility] CBC W/Diff, Automatedon 04-06 Absolute Lymph 1.62 X10 3/uL Normal 0.83-4.51 [facility] Comment on above: Performed By: #### L 501.9985, L100.0100, L502.0250, L500.4100, L500.4050 #### [facility] [address] [place], [address] Absolute Neut 3.1 X10 3/uL Normal 2.0-7.7 [facility] Comment on above: Performed By: #### L 501.9985, L100.0100, L502.0250, L500.4100, L500.4050 #### [facility] [address] [place], [address] Basophils/100 WBC (Bld) 0.4 % Normal 0-1 [facility] Comment on above: Performed By: #### L 501.9985, L100.0100, L502.0250, L500.4100, L500.4050 #### [facility] [address] [place], [address] Eosinophils/100 WBC (Bld) 3.7 % Normal 0-5 [facility] Comment on above: Performed By: #### L 501.9985, L100.0100, L502.0250, L500.4100, L500.4050 #### [facility] [address] [place], [address] Erythrocyte distribution width (RBC) [Ratio] 13.1 % Normal 11.6-14.6 [facility] Comment on above: Performed By: #### L 501.9985, L100.0100, L502.0250, L500.4100, L500.4050 #### [facility] [address] [place], [address] Hematocrit (Bld) [Volume fraction] 41.7 % Normal 37-47 [facility] Comment on above: Performed By: #### L 501.9985, L100.0100, L502.0250, L500.4100, L500.4050 #### [facility] [address] [place], [address] Hemoglobin (Bld) [Mass/Vol] 12.6 g/dL Normal 12.0-15.0 [facility] Comment on above: Performed By: #### L 501.9985, L100.0100, L502.0250, L500.4100, L500.4050 #### [facility] [address] [place], [address] IG% 0.600 Normal 0.0-0.9 [facility] Comment on above: Result Comment: IG% - Immature Granulocytes (promyelocytes, myelocytes and metamyelocytes) > 1% indicates that a LEFT SHIFT is Present. Performed By: #### L 501.9985, L100.0100, L502.0250, L500.4100, L500.4050 #### [facility] [address] [place], [address] Lymphocytes/100 WBC (Bld) 29.9 % Normal 19-41 [facility] Comment on above: Performed By: #### L 501.9985, L100.0100, L502.0250, L500.4100, L500.4050 #### [facility] [address] [place], [address] MCH (RBC) [Entitic mass] 31.0 pg Normal 27.0-32.0 [facility] Comment on above: Performed By: #### L 501.9985, L100.0100, L502.0250, L500.4100, L500.4050 #### [facility] [address] [place], [address] MCHC (RBC) [Mass/Vol] 30.2 g/dL Low 32-36 [facility] Comment on above: Performed By: #### L 501.9985, L100.0100, L502.0250, L500.4100, L500.4050 #### [facility] [address] [place], [address] MCV (RBC) [Entitic vol] 102.7 fL High 81-99 [facility] Comment on above: Performed By: #### L 501.9985, L100.0100, L502.0250, L500.4100, L500.4050 #### [facility] [address] [place], [address] Monocytes/100 WBC (Bld) 8.5 % Normal 0-10 [facility] Comment on above: Performed By: #### L 501.9985, L100.0100, L502.0250, L500.4100, L500.4050 #### [facility] [address] [place], [address] Neutrophils/100 WBC (Bld) 56.9 % Normal 47-70 [facility] Comment on above: Performed By: #### L 501.9985, L100.0100, L502.0250, L500.4100, L500.4050 #### [facility] [address] [place], [address] Nucleated RBC (Bld) [#/Vol] 0 10*3/uL Normal 0-5 [facility] Comment on above: Performed By: #### L 501.9985, L100.0100, L502.0250, L500.4100, L500.4050 #### [facility] [address] [place], [address] Platelet mean volume (Bld) [Entitic vol] 11.5 fL Normal 6.2-12.0 [facility] Comment on above: Performed By: #### L 501.9985, L100.0100, L502.0250, L500.4100, L500.4050 #### [facility] [address] [place], [address] Platelets (Bld) [#/Vol] 190 10*3/uL Normal 150-450 [facility] Comment on above: Performed By: #### L 501.9985, L100.0100, L502.0250, L500.4100, L500.4050 #### [facility] [address] [place], [address] RBC (Bld) [#/Vol] 4.06 10*6/uL Low 4.2-5.4 [facility] Comment on above: Performed By: #### L 501.9985, L100.0100, L502.0250, L500.4100, L500.4050 #### [facility] [address] [place], [address] RDW SD 49.6 fl High 35.1-43.9 [facility] Comment on above: Performed By: #### L 501.9985, L100.0100, L502.0250, L500.4100, L500.4050 #### [facility] [address] [place], [address] WBC (Bld) [#/Vol] 5.4 10*3/uL Normal 4.4-11.0 [facility] Comment on above: Performed By: #### L 501.9985, L100.0100, L502.0250, L500.4100, L500.4050 #### [facility] [address] [place], [address] Calculated very low density lipoprotein (VLDL) cholesterol measurementOrdered By: INDIRA ISABEL on 04-29-2024 VLDL Cholesterol 20 mg/dL 5-40 [facility] Comprehensive Metabolic Prof ilon 04-29-2024 Albumin [Mass/Vol] 4.0 g/dL Normal 3.4-4.8 [facility] Comment on above: Performed By: #### L 500.4050 #### [facility] [address] [place], [address] Albumin/Globulin [Mass ratio] 1.3 {ratio} Normal 0.9-2.4 [facility] Comment on above: Performed By: #### L 500.4050 #### [facility] [address] [place], [address] ALK PHOS 87 U/L Normal 35-104 [facility] Comment on above: Performed By: #### L 500.4050 #### [facility] [address] [place], [address] ALT [Catalytic activity/Vol] 18 U/L Normal <=34 [facility] Comment on above: Performed By: #### L 500.4050 #### [facility] [address] [place], [address] Anion gap [Moles/Vol] 13 mmol/L Normal 5-15 [facility] Comment on above: Performed By: #### L 500.4050 #### [facility] [address] [place], [address] AST [Catalytic activity/Vol] 28 U/L Normal <=31 [facility] Comment on above: Performed By: #### L 500.4050 #### [facility] [address] [place], [address] Bilirubin [Mass/Vol] 0.30 mg/dL Normal 0.00-1.30 [facility] Comment on above: Performed By: #### L 500.4050 #### [facility] [address] [place], [address] BUN/CRE 28.5 RATIO High 10-20 [facility] Comment on above: Performed By: #### L 500.4050 #### [facility] [address] [place], [address] Calcium [Mass/Vol] 9.8 mg/dL Normal 7.6-11.0 [facility] Comment on above: Performed By: #### L 500.4050 #### [facility] [address] [place], [id number] Chloride [Moles/Vol] 104 mmol/L Normal 96-108 [facility] Comment on above: Performed By: #### L 500.4050 #### [facility] [address] [place], [id number] CO2 [Moles/Vol] 22.2 mmol/L Normal 22.0-29.0 [facility] Comment on above: Performed By: #### L 500.4050 #### [facility] [address] [place], [id number] Creatinine [Mass/Vol] 0.6 mg/dL Normal 0.6-1.0 [facility] Comment on above: Performed By: #### L 500.4050 #### [facility] [address] [place], [id number] GFR/1.73 sq M.predicted among non-blacks MDRD (S/P/Bld) [Vol rate/Area] 90 mL/min/{1.73_m2} Normal >[address] [facility] Comment on above: Result Comment: mL/m in/1.73m2 CKD-EPI Creatinine Equation (2020) Performed By: #### L 500.4050 #### [facility] [address] [place], [address] Globulin (S) [Mass/Vol] 3.1 g/dL Normal 2.2-4.2 [facility] Comment on above: Performed By: #### L 500.4050 #### [facility] [address] [place], [address] Glucose [Mass/Vol] 89 mg/dL Normal 70-99 [facility] Comment on above: Performed By: #### L 500.4050 #### [facility] [address] [place], [address] Potassium [Moles/Vol] 5.3 mmol/L High 3.3-5.1 [facility] Comment on above: Performed By: #### L 500.4050 #### [facility] [address] [place], [address] Sodium [Moles/Vol] 139 mmol/L Normal 133-145 [facility] Comment on above: Performed By: #### L 500.4050 #### [facility] [address] [place], [address] T PROT 7.1 g/dL Normal 5.9-8.4 [facility] Comment on above: Performed By: #### L 500.4050 #### [facility] [address] [place], [address] Urea nitrogen [Mass/Vol] 18 mg/dL Normal 4-19 [facility] Comment on above: Performed By: #### L 500.4050 #### [facility] [address] [place], [address] ALB Normal 3.4-4.8 [facility] Comment on above: Result Comment: PUTT ING UNDER DIFFERENT REQ Performed By: #### L 501.9985, L100.0100, L502.0250, L500.4100, L500.4050 #### [facility] [address] [place], [address] ALK PHOS Normal 35-104 [facility] Comment on above: Result Comment: PUTT ING UNDER DIFFERENT REQ Performed By: #### L 501.9985, L100.0100, L502.0250, L500.4100, L500.4050 #### [facility] [address] [place], [address] ALT Normal <=34 [facility] Comment on above: Result Comment: PUTT ING UNDER DIFFERENT REQ Performed By: #### L 501.9985, L100.0100, L502.0250, L500.4100, L500.4050 #### [facility] [address] [place], [address] AST Normal <=31 [facility] Comment on above: Result Comment: PUTT ING UNDER DIFFERENT REQ Performed By: #### L 501.9985, L100.0100, L502.0250, L500.4100, L500.4050 #### [facility] [address] [place], [address] BUN Normal 4-19 [facility] Comment on above: Result Comment: PUTT ING UNDER DIFFERENT REQ Performed By: #### L 501.9985, L100.0100, L502.0250, L500.4100, L500.4050 #### [facility] [address] [place], [address] BUN/CRE Normal 10-20 [facility] Comment on above: Result Comment: PUTT ING UNDER DIFFERENT REQ Performed By: #### L 501.9985, L100.0100, L502.0250, L500.4100, L500.4050 #### [facility] [address] [place], [address] Calcium Normal 8.5-10.1 [facility] Comment on above: Result Comment: PUTT ING UNDER DIFFERENT REQ Performed By: #### L 501.9985, L100.0100, L502.0250, L500.4100, L500.4050 #### [facility] [address] [place], [address] CL Normal 98-107 [facility] Comment on above: Result Comment: PUTT ING UNDER DIFFERENT REQ Performed By: #### L 501.9985, L100.0100, L502.0250, L500.4100, L500.4050 #### [facility] [address] [place], [address] CO2 Normal 21.0-32.0 [facility] Comment on above: Result Comment: PUTT ING UNDER DIFFERENT REQ Performed By: #### L 501.9985, L100.0100, L502.0250, L500.4100, L500.4050 #### [facility] [address] [place], [address] CREAT,SERUM Normal 0.6-1.0 [facility] Comment on above: Result Comment: PUTT ING UNDER DIFFERENT REQ Performed By: #### L 501.9985, L100.0100, L502.0250, L500.4100, L500.4050 #### [facility] [address] [place], [address] eGFR Normal >60 [facility] Comment on above: Result Comment: PUTT ING UNDER DIFFERENT REQ Performed By: #### L 501.9985, L100.0100, L502.0250, L500.4100, L500.4050 #### [facility] [address] [place], [address] GAP Normal 5-15 [facility] Comment on above: Result Comment: PUTT ING UNDER DIFFERENT REQ Performed By: #### L 501.9985, L100.0100, L502.0250, L500.4100, L500.4050 #### [facility] [address] [place], [address] GLU Normal 70-99 [facility] Comment on above: Result Comment: PUTT ING UNDER DIFFERENT REQ Performed By: #### L 501.9985, L100.0100, L502.0250, L500.4100, L500.4050 #### [facility] [address] [place], [address] Potassium Normal 3.5-5.1 [facility] Comment on above: Result Comment: PUTT ING UNDER DIFFERENT REQ Performed By: #### L 501.9985, L100.0100, L502.0250, L500.4100, L500.4050 #### [facility] [address] [place], [address] T BILI Normal 0.00-1.30 [facility] Comment on above: Result Comment: PUTT ING UNDER DIFFERENT REQ Performed By: #### L 501.9985, L100.0100, L502.0250, L500.4100, L500.4050 #### [facility] [address] [place], [address] T PROT Normal 5.9-8.4 [facility] Comment on above: Result Comment: PUTT ING UNDER DIFFERENT REQ Performed By: #### L 501.9985, L100.0100, L502.0250, L500.4100, L500.4050 #### [facility] [address] [place], [address] Comprehensive Metabolic Profil Normal 136-145 [facility] Comment on above: Result Comment: PUTT ING UNDER DIFFERENT REQ Performed By: #### L 501.9985, L100.0100, L502.0250, L500.4100, L500.4050 #### [facility] [address] [place], [address] Creatinine Unsp time (U) [Ma ss/Vol]Ordered By: INDIRA ISABEL on 04-29-2024 Creatinine (U) [Mass/Vol] 48.00 mg/dL NO RANGE EST. [facility] Creatinine [Moles/Vol]Ordere d By: INDIRA ISABEL on 04-29-2024 Creatinine [Mass/Vol] 0.6 mg/dL 0.6-1.0 [facility] Eosinophil percentageOrdered By: INDIRA ISABEL on 04-29-2024 Eosinophils/100 WBC (Bld) 3.7 % 0-5 [facility] Erythrocyte distribution wid th ratioOrdered By: INDIRA ISABEL on 04-29-2024 Erythrocyte distribution width (RBC) [Ratio] 13.1 % 11.6-14.6 [facility] Erythrocyte distribution wid th standard deviationOrdered By: INDIRA ISABEL on 04-29-2024 Erythrocyte distribution width (RBC) [Entitic vol] 49.6 fL High 35.1-43.9 [facility] GFR/1.73 sq M.predicted isauro g non-blacks MDRD (S/P/Bld) [Vol rate/Area]Ordered By: INDIRA ISABEL on 04-29-2024 Estimated GFR (MDRD) Non-Af Amer 90 >60 [facility] Comment on above: mL/min/1.73m2 CKD-EP I Creatinine Equation (2020) Hematocrit Auto (Bld) [Volum e fraction]Ordered By: INDIRA ISABEL on 04-29-2024 Hematocrit (Bld) [Volume fraction] 41.7 % 37-47 [facility] Hemoglobin A1c percentageOrd ered By: INDIRA ISABEL on 04-29-2024 HbA1c (Bld) [Mass fraction] 6.0 % >5.7 [facility] Hemoglobin measurementOrdere d By: INDIRA ISABEL on 04-29-2024 Hemoglobin (Bld) [Mass/Vol] 12.6 g/dL 12.0-15.0 [facility] Immature granulocytes/100 WB C Auto (Bld)Ordered By: INDIRA ISABEL on 04-29-2024 Immature granulocytes/100 WBC (Bld) 0.600 % 0.0-0.9 [facility] Comment on above: IG% - Immature Granu locytes (promyelocytes, myelocytes and metamyelocytes) > 1% indicates that a LEFT SHIFT is Present. LDL calc ser/plasOrdered By: INDIRA ISABEL on 04-29-2024 LDL Cholesterol, Calculated 62 mg/dL [facility] Comment on above: Xaegxxkrov=370-030 m g/dL & Higher Vmdm=363 mg/dL or greater Laboratory - Chemistry and C hemistry - challengeOrdered By: INDIRA ISABEL on 04-29-2024 AST [Catalytic activity/Vol] 28 U/L <32 [facility] Lipid Profileon 04-29-2024 HDL Normal [facility] Comment on above: Result Comment: PUTT ING UNDER DIFFERENT REQ The drugs N-Acetylcysteine and Metamizole may falsely depress this assay. Performed By: #### L 501.9985, L100.0100, L502.0250, L500.4100, L500.4050 #### [facility] [address] [place], [address] TRIG Normal [facility] Comment on above: Result Comment: PUTT ING UNDER DIFFERENT REQ The drugs N-Acetylcysteine and Metamizole may falsely depress this assay. Performed By: #### L 501.9985, L100.0100, L502.0250, L500.4100, L500.4050 #### [facility] [address] [place], [address] CHOL Normal 200 [facility] Comment on above: Result Comment: PUTT ING UNDER DIFFERENT REQ Performed By: #### L 501.9985, L100.0100, L502.0250, L500.4100, L500.4050 #### [facility] [address] [place], [address] LDL Normal 0-130 [facility] Comment on above: Result Comment: PUTT ING UNDER DIFFERENT REQ Performed By: #### L 501.9985, L100.0100, L502.0250, L500.4100, L500.4050 #### [facility] [address] [place], [address] VLDL Normal 5-40 [facility] Comment on above: Result Comment: PUTT ING UNDER DIFFERENT REQ Performed By: #### L 501.9985, L100.0100, L502.0250, L500.4100, L500.4050 #### [facility] [address] [place], [address] Lymphocytes Auto (Unsp spec) [#/Vol]Ordered By: INDIRA ISABEL on 04-29-2024 Lymphocytes (Bld) [#/Vol] 1.62 10*3/uL 0.83-4.5 1 [facility] Lymphocytes/100 WBC Auto (Un sp spec)Ordered By: INDIRA ISABEL on 04-29-2024 Lymphocytes/100 WBC (Bld) 29.9 % 19-41 [facility] MCV (mean corpuscular volume ) determinationOrdered By: INDIRA ISABEL on 04-29-2024 MCV (RBC) [Entitic vol] 102.7 fL High 81-99 [facility] Mean corpuscular hemoglobin (MCH) determinationOrdered By: INDIRA ISABEL on 04-29-2024 MCH (RBC) [Entitic mass] 31.0 pg 27.0-32.0 [facility] Mean corpuscular hemoglobin concentration (MCHC) determinationOrdered By: INDIRA ISABEL on 04-29-2024 MCHC (RBC) [Mass/Vol] 30.2 g/dL Low 32-36 [facility] Mean platelet volume determi nationOrdered By: INDIRA ISABEL on 04-29-2024 Platelet mean volume (Bld) [Entitic vol] 11.5 fL 6.2-12.0 [facility] Microalbumin/creat ratio urO rdered By: INDIRA ISABEL on 04-29-2024 Urine Microalbumin/Creatinine Ratio 600.0 mg/g CRE [facility] Monocyte percentageOrdered B y: INDIRA ISABEL on 04-29-2024 Monocytes/100 WBC (Bld) 8.5 % 0-10 [facility] Neutrophil percentageOrdered By: INDIRA ISABEL on 04-29-2024 Neutrophils/100 WBC (Bld) 56.9 % 47-70 [facility] Nucleated red blood cell per centageOrdered By: INDIRA ISABEL on 04-29-2024 Nucleated RBC/100 WBC (Bld) [Ratio] 0 % 0-5 [facility] Platelet countOrdered By: NAIMA ISABEL on 04-29-2024 Platelets (Bld) [#/Vol] 190 10*3/uL 150-450 [facility] RBC Auto (Bld) [#/Vol]Ordere d By: INDIRA ISABEL on 04-29-2024 RBC (Bld) [#/Vol] 4.06 10*6/uL Low 4.2-5.4 [facility] Screening total cholesterol/ high density lipoprotein (HDL) cholesterol ratioOrdered By: INDIRA ISABEL on 04-29-2024 Cholesterol.total/Cholest devonte in HDL [Mass ratio] 2.35 {ratio} [facility] Serum globulin measurementOr dered By: INDIRA ISABEL on 04-29-2024 Globulin (S) [Mass/Vol] 3.1 g/dL 2.2-4.2 [facility] Serum glucose measurement (m ass/volume)Ordered By: INDIRA ISABEL on 04-29-2024 Glucose [Mass/Vol] 89 mg/dL 70-99 [facility] Serum or plasma alanine ruiz otransferase (ALT) measurementOrdered By: INDIRA ISABEL on 04-29-2024 ALT [Catalytic activity/Vol] 18 U/L <35 [facility] Serum or plasma albumin tim urement (mass/volume)Ordered By: INDIRA ISABEL on 04-29-2024 Albumin [Mass/Vol] 4.0 g/dL 3.4-4.8 [facility] Serum or plasma albumin/glob ulin mass ratioOrdered By: INDIRA ISABEL on 04-29-2024 Albumin/Globulin [Mass ratio] 1.3 {ratio} 0.9-2.4 [facility] Serum or plasma alkaline manjinder sphatase measurementOrdered By: INDIRA ISABEL on 04-29-2024 ALP [Catalytic activity/Vol] 87 U/L 35-104 [facility] Serum or plasma anion gap de termination (moles/volume)Ordered By: INDIRA ISABEL on 04-29-2024 Anion gap [Moles/Vol] 13 mmol/L 5-15 [facility] Serum or plasma calcium tim urement (mass/volume)Ordered By: INDIRA ISABEL on 04-29-2024 Calcium [Mass/Vol] 9.8 mg/dL 7.6-11.0 [facility] Serum or plasma cholesterol in HDL measurement (mass/volume)Ordered By: INDIRA ISABEL on 04-29-2024 Cholesterol in HDL [Mass/Vol] 61 mg/dL >40 [facility] Comment on above: National Cholesterol Education Program (NCEP) guidelines:<40 mg/dL: Low HDL-cholesterol (major risk factor for CHD)>= 60 mg/dL: High HDL-cholesterol (negative risk factor for CHD)HDL-cholesterol is affected by a number of factors, e.g. smoking, exercise, hormones, sex and age. Serum or plasma cholesterol measurement (mass/volume)Ordered By: INDIRA ISABEL on 04-29-2024 Cholesterol [Mass/Vol] 144 mg/dL <201 [facility] Comment on above: Cholesterol level, D esirable <200 mg/dLBorderline high cholesterol 200-239 mg/dLHigh cholesterol >=240 mg/dLRecommendations of the NCEP Adult Treatment Panel for the following risk-cutoff thresholds for the [place] population. Serum or plasma potassium me asurementOrdered By: INDIRA ISABEL on 04-29-2024 Potassium [Moles/Vol] 5.3 mmol/L High 3.3-5.1 [facility] Serum or plasma sodium measu rement (moles/volume)Ordered By: INDIRA ISABEL on 04-29-2024 Sodium [Moles/Vol] 139 mmol/L 133-145 [facility] Serum or plasma urea nitroge n measurement (mass/volume)Ordered By: INDIRA ISABEL on 04-29-2024 Urea nitrogen [Mass/Vol] 18 mg/dL 4-19 [facility] Total proteinOrdered By: ANN-MARIE ISABEL on 04-29-2024 Protein [Mass/Vol] 7.1 g/dL 5.9-8.4 [facility] Triglycerides measurementOrd ered By: INDIRA ISABEL on 04-29-2024 Triglyceride [Mass/Vol] 102 mg/dL <199 [facility] Comment on above: The drugs N-Acetylcy steine and Metamizole may falsely depress this assay. Normal range: <150 mg/dLBorderline High: 150-199 mg/dLHigh: 200-499 mg/dLVery High: >500 mg/dL White blood cell (WBC) count Ordered By: INDIRA ISABEL on 04-29-2024 WBC (Bld) [#/Vol] 5.4 10*3/uL 4.4-11.0 [facility] OCT MACULA CIRRUS OU (BOTH E YES)on 04-10-2024 [facility] Radiology Study observation (narrative) [facility] CBC W/Diff, Automatedon 10-03 Absolute Lymph 1.72 X10 3/uL Normal 0.83-4.51 [facility] Comment on above: Performed By: #### L 501.9985, L501.9520, L502.0250, L500.4100, L500.4050, L100.0100 #### [facility] [address] [place], [address] Absolute Neut 2.9 X10 3/uL Normal 2.0-7.7 [facility] Comment on above: Performed By: #### L 501.9985, L501.9520, L502.0250, L500.4100, L500.4050, L100.0100 #### [facility] [address] [place], [address] Basophils/100 WBC (Bld) 0.5 % Normal 0-1 [facility] Comment on above: Performed By: #### L 501.9985, L501.9520, L502.0250, L500.4100, L500.4050, L100.0100 #### [facility] [address] [place], [address] Eosinophils/100 WBC (Bld) 5.1 % High 0-5 [facility] Comment on above: Performed By: #### L 501.9985, L501.9520, L502.0250, L500.4100, L500.4050, L100.0100 #### [facility] [address] [place], [address] Erythrocyte distribution width (RBC) [Ratio] 13.2 % Normal 11.6-14.6 [facility] Comment on above: Performed By: #### L 501.9985, L501.9520, L502.0250, L500.4100, L500.4050, L100.0100 #### [facility] [address] [place], [address] Hematocrit (Bld) [Volume fraction] 37.8 % Normal 37-47 [facility] Comment on above: Performed By: #### L 501.9985, L501.9520, L502.0250, L500.4100, L500.4050, L100.0100 #### [facility] [address] [place], [address] Hemoglobin (Bld) [Mass/Vol] 11.7 g/dL Low 12.0-15.0 [facility] Comment on above: Performed By: #### L 501.9985, L501.9520, L502.0250, L500.4100, L500.4050, L100.0100 #### [facility] [address] [place], [address] IG% 0.200 Normal 0.0-0.9 [facility] Comment on above: Result Comment: IG% - Immature Granulocytes (promyelocytes, myelocytes and metamyelocytes) > 1% indicates that a LEFT SHIFT is Present. Performed By: #### L 501.9985, L501.9520, L502.0250, L500.4100, L500.4050, L100.0100 #### [facility] [address] [place], [address] Lymphocytes/100 WBC (Bld) 31.5 % Normal 19-41 [facility] Comment on above: Performed By: #### L 501.9985, L501.9520, L502.0250, L500.4100, L500.4050, L100.0100 #### [facility] [address] [place], [address] MCH (RBC) [Entitic mass] 30.9 pg Normal 27.0-32.0 [facility] Comment on above: Performed By: #### L 501.9985, L501.9520, L502.0250, L500.4100, L500.4050, L100.0100 #### [facility] [address] [place], [address] MCHC (RBC) [Mass/Vol] 31.0 g/dL Low 32-36 [facility] Comment on above: Performed By: #### L 501.9985, L501.9520, L502.0250, L500.4100, L500.4050, L100.0100 #### [facility] [address] [place], [address] MCV (RBC) [Entitic vol] 99.7 fL High 81-99 [facility] Comment on above: Performed By: #### L 501.9985, L501.9520, L502.0250, L500.4100, L500.4050, L100.0100 #### [facility] [address] [place], [address] Monocytes/100 WBC (Bld) 9.2 % Normal 0-10 [facility] Comment on above: Performed By: #### L 501.9985, L501.9520, L502.0250, L500.4100, L500.4050, L100.0100 #### [facility] [address] [place], [address] Neutrophils/100 WBC (Bld) 53.5 % Normal 47-70 [facility] Comment on above: Performed By: #### L 501.9985, L501.9520, L502.0250, L500.4100, L500.4050, L100.0100 #### [facility] [address] [place], [address] Nucleated RBC (Bld) [#/Vol] 0 10*3/uL Normal 0-5 [facility] Comment on above: Performed By: #### L 501.9985, L501.9520, L502.0250, L500.4100, L500.4050, L100.0100 #### [facility] [address] [place], [address] Platelet mean volume (Bld) [Entitic vol] 11.0 fL Normal 6.2-12.0 [facility] Comment on above: Performed By: #### L 501.9985, L501.9520, L502.0250, L500.4100, L500.4050, L100.0100 #### [facility] [address] [place], [address] Platelets (Bld) [#/Vol] 219 10*3/uL Normal 150-450 [facility] Comment on above: Performed By: #### L 501.9985, L501.9520, L502.0250, L500.4100, L500.4050, L100.0100 #### [facility] [address] [place], [address] RBC (Bld) [#/Vol] 3.79 10*6/uL Low 4.2-5.4 [facility] Comment on above: Performed By: #### L 501.9985, L501.9520, L502.0250, L500.4100, L500.4050, L100.0100 #### [facility] [address] [place], [address] RDW SD 48.3 fl High 35.1-43.9 [facility] Comment on above: Performed By: #### L 501.9985, L501.9520, L502.0250, L500.4100, L500.4050, L100.0100 #### [facility] [address] [place], [address] WBC (Bld) [#/Vol] 5.5 10*3/uL Normal 4.4-11.0 [facility] Comment on above: Performed By: #### L 501.9985, L501.9520, L502.0250, L500.4100, L500.4050, L100.0100 #### [facility] [address] [place], [address] Comprehensive Metabolic Prof ilon 10-22-2023 Albumin [Mass/Vol] 3.4 g/dL Normal 3.2-5.0 [facility] Comment on above: Performed By: #### L 501.9985, L501.9520, L502.0250, L500.4100, L500.4050, L100.0100 #### [facility] [address] [place], [address] Albumin/Globulin [Mass ratio] 0.9 {ratio} Normal 0.9-2.4 [facility] Comment on above: Performed By: #### L 501.9985, L501.9520, L502.0250, L500.4100, L500.4050, L100.0100 #### [facility] [address] [place], [address] ALK P 90 U/L Normal 45-117 [facility] Comment on above: Performed By: #### L 501.9985, L501.9520, L502.0250, L500.4100, L500.4050, L100.0100 #### [facility] [address] [place], [address] ALT [Catalytic activity/Vol] 28 U/L Normal 13-56 [facility] Comment on above: Performed By: #### L 501.9985, L501.9520, L502.0250, L500.4100, L500.4050, L100.0100 #### [facility] [address] [place], [address] AST [Catalytic activity/Vol] 27 U/L Normal 15-37 [facility] Comment on above: Performed By: #### L 501.9985, L501.9520, L502.0250, L500.4100, L500.4050, L100.0100 #### [facility] [address] [place], [address] Bilirubin [Mass/Vol] 0.40 mg/dL Normal 0.20-1.00 [facility] Comment on above: Result Comment: For patients on eltrombopag therapy, use of Dimension [place] TBIL is not recommended. Performed By: #### L 501.9985, L501.9520, L502.0250, L500.4100, L500.4050, L100.0100 #### [facility] [address] [place], [address] BUN/CRE 24.7 RATIO High 10-20 [facility] Comment on above: Performed By: #### L 501.9985, L501.9520, L502.0250, L500.4100, L500.4050, L100.0100 #### [facility] [address] [place], [address] CA,Total 8.6 mg/dL Normal 8.5-10.1 [facility] Comment on above: Performed By: #### L 501.9985, L501.9520, L502.0250, L500.4100, L500.4050, L100.0100 #### [facility] [address] [place], [address] Chloride [Moles/Vol] 104 mmol/L Normal 98-107 [facility] Comment on above: Performed By: #### L 501.9985, L501.9520, L502.0250, L500.4100, L500.4050, L100.0100 #### [facility] [address] [place], [address] CO2 [Moles/Vol] 25.0 mmol/L Normal 21.0-32.0 [facility] Comment on above: Performed By: #### L 501.9985, L501.9520, L502.0250, L500.4100, L500.4050, L100.0100 #### [facility] [address] [place], [address] Creatinine [Mass/Vol] 0.81 mg/dL Normal 0.55-1.02 [facility] Comment on above: Result Comment: The validity of the calculated GFR GFRAA in patients over 70 years has not been determined. Clinical correlation is essential. Performed By: #### L 501.9985, L501.9520, L502.0250, L500.4100, L500.4050, L100.0100 #### [facility] [address] [place], [address] EST GFR - AA 88 mL/min Normal >60 [facility] Comment on above: Result Comment: Afri can [place] GFR Calc Performed By: #### L 501.9985, L501.9520, L502.0250, L500.4100, L500.4050, L100.0100 #### [facility] [address] [place], [address] GAP 6 Normal 5-15 [facility] Comment on above: Performed By: #### L 501.9985, L501.9520, L502.0250, L500.4100, L500.4050, L100.0100 #### [facility] [address] [place], [address] GFR/1.73 sq M.predicted among non-blacks MDRD (S/P/Bld) [Vol rate/Area] 72 mL/min/{1.73_m2} Normal >[address] [facility] Comment on above: Result Comment: Non- GFR Calc Performed By: #### L 501.9985, L501.9520, L502.0250, L500.4100, L500.4050, L100.0100 #### [facility] [address] [place], [address] Globulin (S) [Mass/Vol] 3.8 g/dL Normal 2.2-4.2 [facility] Comment on above: Performed By: #### L 501.9985, L501.9520, L502.0250, L500.4100, L500.4050, L100.0100 #### [facility] [address] [place], [address] Glucose [Mass/Vol] 82 mg/dL Normal 74-106 [facility] Comment on above: Performed By: #### L 501.9985, L501.9520, L502.0250, L500.4100, L500.4050, L100.0100 #### [facility] [address] [place], [address] Potassium [Moles/Vol] 5.2 mmol/L High 3.5-5.1 [facility] Comment on above: Performed By: #### L 501.9985, L501.9520, L502.0250, L500.4100, L500.4050, L100.0100 #### [facility] [address] [place], [address] Sodium [Moles/Vol] 135 mmol/L Low 136-145 [facility] Comment on above: Performed By: #### L 501.9985, L501.9520, L502.0250, L500.4100, L500.4050, L100.0100 #### [facility] [address] [place], [address] T PROT 7.2 g/dL Normal 6.4-8.2 [facility] Comment on above: Performed By: #### L 501.9985, L501.9520, L502.0250, L500.4100, L500.4050, L100.0100 #### [facility] [address] [place], [address] Urea nitrogen [Mass/Vol] 20 mg/dL High 7-18 [facility] Comment on above: Performed By: #### L 501.9985, L501.9520, L502.0250, L500.4100, L500.4050, L100.0100 #### [facility] [address] [place], [address] Hemoglobin A1con 10-22-2023 HbA1c (Bld) [Mass fraction] 5.7 % High 3.8-5.6 [facility] Comment on above: Result Comment: Norm al < 5.7 % Prediabetic 5.7 - 6.4 % Diabetic >or= 6.5 % Please note range changes. Performed By: #### L 501.9985, L501.9520, L502.0250, L500.4100, L500.4050, L100.0100 #### [facility] [address] [place], [address] Lipid Profileon 10-22-2023 Cholesterol [Mass/Vol] 146 mg/dL Normal [address] [facility] Comment on above: Result Comment: <200 mg/dL Desirable 200-240 mg/dL Borderline >240 mg/dL High Risk Performed By: #### L 501.9985, L501.9520, L502.0250, L500.4100, L500.4050, L100.0100 #### [facility] [address] [place], [address] Cholesterol in HDL [Mass/Vol] 59 mg/dL Normal [facility] Comment on above: Result Comment: The drugs N-Acetylcysteine and Metamizole may falsely depress this assay. Reference Range HDL <40 mg/dL Low HDL Cholesterol HDL >or= 60 mg/dL High HDL Cholesterol Performed By: #### L 501.9985, L501.9520, L502.0250, L500.4100, L500.4050, L100.0100 #### [facility] [address] [place], [address] Cholesterol in LDL [Mass/Vol] 66 mg/dL Normal 0-130 [facility] Comment on above: Performed By: #### L 501.9985, L501.9520, L502.0250, L500.4100, L500.4050, L100.0100 #### [facility] [address] [place], [address] Cholesterol in VLDL [Mass/Vol] 21 mg/dL Normal 5-40 [facility] Comment on above: Performed By: #### L 501.9985, L501.9520, L502.0250, L500.4100, L500.4050, L100.0100 #### [facility] [address] [place], [address] Triglyceride [Mass/Vol] 106 mg/dL Normal [facility] Comment on above: Result Comment: The drugs N-Acetylcysteine and Metamizole may falsely depress this assay. Serum Triglycerides Reference Interval Normal <150 mg/dL Borderline high 150 - 199 mg/dL High 200 - 499 mg/dL Very High > or = 500 mg/dL Performed By: #### L 501.9985, L501.9520, L502.0250, L500.4100, L500.4050, L100.0100 #### [facility] [address] [place], [address] Microalb:Creat Ratio,Random URon 10-22-2023 Creatinine [Mass/Vol] 191.00 mg/dL Normal NO RANGE EST . [facility] Comment on above: Performed By: #### L 501.9985, L501.9520, L502.0250, L500.4100, L500.4050, L100.0100 #### [facility] [address] [place], [address] MALB:CRE 28.0 mg/g CRE Normal <30 mg/g CRE [facility] Comment on above: Performed By: #### L 501.9985, [id number], L502.0250, L500.4100, L500.4050, L100.0100 #### [facility] [address] [place], [place], [id number] MICROALBUMIN,UR 53.4 mg/L Normal NO RANGE EST. [facility] Comment on above: Performed By: #### L 501.9985, L501.9520, L502.0250, L500.4100, L500.4050, L100.0100 #### [facility] [address] [place], [place], [id number] Thyroid Stim Hormone (TSH)on 10-22-2023 TSH 3.930 uIU/mL High 0.358-3.740 [facility] Comment on above: Performed By: #### L 501.9985, L501.9520, L502.0250, L500.4100, L500.4050, L100.0100 #### [facility] [address] [place], [place], [id number] OCT MACULA CIRRUS OU (BOTH E YES)on 10-04-2023 [facility] Radiology Study observation (narrative) [facility] ICD REMOTE CHECKon 4 AV Delay Adaptive Paced Minimum (ms) 140 ms [facility] AV Delay Adaptive Sensed Minimum (ms) 140 ms [facility] Gregory LV Pacing Amplitude (volts) 2.0 V [facility] Gregory LV Pacing Pulse Width (ms) 0.5 ms [facility] gregory LV Sensing Amplitude (mvolts) 1.0 mV [facility] Gregory RA Pacing Amplitude (volts) 2.0 V [facility] Gregory RA Pacing Polarity BI [facility] Gregory RA Pacing Pulse Width (ms) 0.5 ms [facility] Gregory RA Sensing Amplitude (mvolts) 0.25 mV [facility] Gregory RA Sensing Polarity BI [facility] Gregory RV Pacing Amplitude (volts) 2.5 V [facility] Gregory RV Pacing Polarity BI [facility] Gregory RV Pacing Pulse Width (ms) 0.5 ms [facility] Gregory RV Sensing Amplitude (mvolts) 0.3 mV [facility] Gregory RV Sensing Polarity BI [facility] Detection Configuration (Vent) 2 - Zone [facility] FastVT_Detection Interval 273 ms [facility] FastVT_Therapy Configuration 1 ATP(s) + 8 Shock(s) [facility] ICD FastVT DetectionStatus ENABLED [facility] ICD-AMS EPISODES 170 {beats}/min [facility] ICD-ATP Episodes (Vent) 0 C [facility] ICD-ATRIALFIBRILLATION 3 Cl [facility] ICD-ATRIALTACHYCARDIA 3 [facility] ICD-Device Mfg BSX [facility] ICD-LEADIMPEDANCEATRIAL 392 ohm [facility] ICD-Percent Pacing (Atrial) 19 % [facility] ICD-Percent Pacing (Vent) 100 % [facility] ICD-Shocks Aborted (Vent) 0 [facility] SZT-MNIKSX-IZRMCTXUS 0 [facility] ICD-SHOCKSABORTED 0 [facility] ICD-SHOCKSDELIVEREDVENTRI CULAR 0 [facility] ICD-Ventricular Fibrillation 0 [facility] ICD-VVDELAY_MS 0 ms [facility] Implant Date 05/19/2020 [facility] Lead Impedance (LV) 1063 ohm [facility] Lead Impedance (RV) 590 ohm [facility] Lead Impedance High Voltage 51 ohm [facility] Lead1 Mfg CPM [facility] Lead2 Mfg GDT [facility] Lead3 Mfg GDT [facility] Location RA [facility] Location RV [facility] Location LV [facility] Lower Rate (bpm) 60 {beats}/min [facility] LV PACING % 100 % [facility] Max Sensor Rate (bpm) 130 {beats}/min [facility] MDT_PROG_TACHY_ZONE_DETEC TIONS_STATUS ENABLED [facility] Model G151 DYNAGEN CURB HOP-D [facility] Model 4470 Fineline II Sterox EZ [facility] Model 0185 Endotak Cornish G [facility] Model 4543 EasyTrak 2 IS-1, 90 cm [facility] Pacing Mode DDD [facility] Serial Number [id number] [facility] Serial Number [id number] [facility] Serial Number [id number] [facility] Serial Number [id number] [facility] Test Charge Energy 23 J [facility] Test Charge Time 10.6 s [facility] Therapy Status (Vent) Enabled [facility] Thresh LV Capture Amplitude (volts) 1.0 V [facility] Thresh LV Capture Duration (ms) 0.5 ms [facility] Thresh RA Capture Amplitude (volts) 0.9 V [facility] Thresh RA Capture Duration (ms) 0.5 ms [facility] Thresh RV Capture Amplitude (VOLTS) 0.9 V [facility] Thresh RV Capture Duration (MS) 0.5 ms [facility] Tracking Rate (bpm) 130 {beats}/min [facility] VF Zone Detection Interval 273 ms [facility] VF Zone Therapy Configuration 1 ATP(s) + 8 Shock(s) [facility] 07/18/2023 CURB HOP-D REMOTE EVALUATION: Processed 07/18/23. PRESENTING EGM: AP-/BIVP BATTERY STATUS: Estimated time remaining to DB is 8 years. COUNTERS SINCE: 05/19/20(remote 03/15/23). ATRIAL ARRHYTHMIAS: There have been 1 triggered episodes of atrial high rates with EGMs showing AT. Longest lasting 1 second. Total time <1%. Anticoagulants listed: ASA. VENTRICULAR ARRHYTHMIAS: There have been no ventricular detections. LEAD MEASUREMENTS: Sensing is appropriate. Review of the lead impedance trends are normal. OTHER DIAGNOSTICS: RA pacing 19%. BIV pacing 100%. FOLLOW UP: Continue 3 month remote transmissions and yearly in-clinic interrogations. Mac Youngblood RN NOTE TO PROVIDERS: CARD Flowsheets contain detailed device programming and testing data. Paceart/Interrogati on PDF can be found under CARDIAC DATA AND REPORT, Scanned Documents section. [facility] No Panel Informationon 07-17 BLANK _ [facility] ICD-ATRIALTACHYCARDIA 0 [facility] ICD-Fast Ventricular Tachycardia 0 [facility] Implant Date 11/02/2008 [facility] US CAROTID ARTERIES [facility]on 06-20-2023 US CAROTID ARTERIES [facility] Non-Invasive Vascular Laboratory [facility] Carotid Duplex Bilateral/Complete Date of service/time: 06/20/2023 3:22:12 PM Name: MS. ALLIE MURILLO Date of : 1945 Age: 77 years Gender: F Clinical Indication Ocular ischemic syndrome. TECHNIQUE -------- A carotid duplex ultrasound examination was performed, including grayscale imaging and color Doppler and spectral Doppler examination of the below mentioned arteries. FINDINGS -------- RIGHT SIDE Common carotid artery: Origin: PSV: 105 cm/s. EDV: 0 cm/s. Proximal: PSV: 87 cm/s. EDV: 0 cm/s. Mid: PSV: 51 cm/s. EDV: 8 cm/s. Distal: PSV: 54 cm/s. EDV: 10 cm/s. Mild heterogeneous plaque at distal. Internal carotid artery: Origin: PSV: 60 cm/s. EDV: 8 cm/s. Proximal: PSV: 55 cm/s. EDV: 12 cm/s. Mid: PSV: 89 cm/s. EDV: 16 cm/s. Distal: PSV: 95 cm/s. EDV: 15 cm/s. Mild heterogeneous plaque at origin. ICA/CCA Ratio: 1.8 External carotid artery: Origin: PSV: 112 cm/s. EDV: 0 cm/s. Mild heterogeneous plaque at origin. Subclavian artery: Origin: PSV: 110 cm/s. EDV: 0 cm/s. Mild heterogeneous plaque at origin. Innominate artery: PSV: 75 cm/s. EDV: 0 cm/s. Vertebral artery: PSV: 51 cm/s. EDV: 10 cm/s. LEFT SIDE Common carotid artery: Proximal: PSV: 83 cm/s. EDV: 12 cm/s. Mid: PSV: 57 cm/s. EDV: 11 cm/s. Distal: PSV: 56 cm/s. EDV: 12 cm/s. Mild heterogeneous plaque at distal. Internal carotid artery: Origin: PSV: 49 cm/s. EDV: 12 cm/s. Proximal: PSV: 62 cm/s. EDV: 14 cm/s. Mid: PSV: 64 cm/s. EDV: 18 cm/s. Distal: PSV: 73 cm/s. EDV: 23 cm/s. Mild heterogeneous plaque at origin. ICA/CCA Ratio: 1.3 External carotid artery: Origin: PSV: 166 cm/s. EDV: 0 cm/s. Moderate heterogeneous plaque at origin. Subclavian artery: Proximal: PSV: 134 cm/s. EDV: 0 cm/s. Vertebral artery: PSV: 54 cm/s. EDV: 13 cm/s. IMPRESSION Outside order. Results will be faxed to [facility]. -Dr. Daniels . RIGHT SIDE Common carotid artery: Plaque visualized without evidence of hemodynamically significant stenosis. Internal carotid artery: 20-39% stenosis. Tortuous vessel from mid to distal . Vertebral artery: Patent and antegrade flow noted. Subclavian artery: Plaque visualized without evidence of hemodynamically significant stenosis. LEFT SIDE Common carotid artery: Plaque visualized without evidence of hemodynamically significant stenosis. Internal carotid artery: 20-39% stenosis. Vertebral artery: Patent and antegrade flow noted. Technologist: Darlene Zayas RVT [facility] Referring physician: Juwan Daniels MD Interpreting physician: ART Melendez DO Final CC [employer] [facility] : [id number] See Link below for Image Normal [facility] Absolute lymphocyte countOrd ered By: INDIRA ISABEL on 05-23-2023 Lymphocytes Auto (Unsp spec) [#/Vol] 1.29 10*3/uL 0.83-4.51 [facility] Automated lymphocyte count a s percentage of total leukocytesOrdered By: INDIRA ISABEL on 05-23-2023 Lymphocytes/100 WBC Auto (Unsp spec) 27.9 % 19-41 [facility] Basophil percentageOrdered B y: INDIRA ISABEL on 05-23-2023 Basophils/100 WBC (Bld) 0.4 % 0-1 [facility] Bilirubin [Mass/Vol] 0.40 mg/dL 0.20-1.00 [facility] Comment on above: For patients on eltr ombopag therapy, use of Dimension [place] TBIL is not recommended. Chloride [Moles/Vol] 105 mmol/L 98-107 [facility] Cholesterol [Mass/Vol] 160 mg/dL <[address] [facility] Comment on above: <200 mg/dL Desirable 200-240 mg/dL Borderline >240 mg/dL High Risk Eosinophils/100 WBC (Bld) 3.5 % 0-5 [facility] Glucose [Mass/Vol] 103 mg/dL 74-106 [facility] Comment on above: Fasting Glucose resu lt from 100 to 125 mg/dL suggests IMPAIRED HOMEOSTASIS per A.D.A. criteria. Hemoglobin (Bld) [Mass/Vol] 12.6 g/dL 12.0-15.0 [facility] Monocytes/100 WBC (Bld) 10.0 % 0-10 [facility] Neutrophils (Bld) [#/Vol] 2.7 10*3/uL 2.0-7.7 [facility] Neutrophils/100 WBC (Bld) 58.0 % 47-70 [facility] Potassium [Moles/Vol] 4.5 mmol/L 3.5-5.1 [facility] Protein [Mass/Vol] 7.3 g/dL 6.4-8.2 [facility] Sodium [Moles/Vol] 139 mmol/L 136-145 [facility] Triglyceride [Mass/Vol] 99 mg/dL <199 [facility] Comment on above: The drugs N-Acetylcy steine and Metamizole may falsely depress this assay.Serum Triglycerides Reference Interval Normal <150 mg/dL Borderline high 150 - 199 mg/dL High 200 - 499 mg/dL Very High > or = 500 mg/dL WBC (Bld) [#/Vol] 4.6 10*3/uL 4.4-11.0 [facility] Determination of erythrocyte mean corpuscular volume (MCV)Ordered By: INDIRA ISABEL on 05-23-2023 MCV (RBC) [Entitic vol] 97.6 fL 81-99 [facility] Erythrocyte distribution wid th ratioOrdered By: INDIRA ISABEL on 05-23-2023 Erythrocyte distribution width (RBC) [Ratio] 12.8 % 11.6-14.6 [facility] Erythrocyte distribution wid th standard deviationOrdered By: INDIRA ISABEL on 05-23-2023 Erythrocyte distribution width (RBC) [Entitic vol] 45.6 fL 35.1-43.9 [facility] Hematocrit Auto (Bld) [Volum e fraction]Ordered By: INDIRA ISABEL on 05-23-2023 Hematocrit (Bld) [Volume fraction] 40.6 % 37-47 [facility] Immature granulocytes/100 WB C Auto (Bld)Ordered By: INDIRA ISABEL on 05-23-2023 Immature granulocytes/100 WBC (Bld) 0.200 % 0.0-0.9 [facility] Comment on above: IG% - Immature Granu locytes (promyelocytes, myelocytes and metamyelocytes) > 1% indicates that a LEFT SHIFT is Present. Laboratory - Chemistry and C hemistry - challengeOrdered By: INDIRA ISABEL on 05-23-2023 Albumin/Globulin [Mass ratio] 0.9 {ratio} 0.9-2.4 [facility] ALP [Catalytic activity/Vol] 72 U/L 45-117 [facility] ALT [Catalytic activity/Vol] 22 U/L 13-56 [facility] Cholesterol in HDL [Mass/Vol] 66 mg/dL >40 [facility] Comment on above: The drugs N-Acetylcy steine and Metamizole may falsely depress this assay. Reference Range HDL <40 mg/dL Low HDL Cholesterol HDL >or= 60 mg/dL High HDL Cholesterol Cholesterol in LDL [Mass/Vol] 74 mg/dL 0-130 [facility] CO2 [Moles/Vol] 30.0 mmol/L 21.0-32.0 [facility] Globulin (S) [Mass/Vol] 3.8 g/dL 2.2-4.2 [facility] Urea nitrogen/Creatinine [Mass ratio] 20.3 mg/mg 10-20 [facility] - Hematology and Cell countsOrdered By: INDIRA ISABEL on 05-23-2023 MCH (RBC) [Entitic mass] 30.3 pg 27.0-32.0 [facility] MCHC (RBC) [Mass/Vol] 31.0 g/dL 32-36 [facility] Nucleated RBC/100 WBC (Bld) [Ratio] 0 % 0-5 [facility] Platelet mean volume (Bld) [Entitic vol] 10.8 fL 6.2-12.0 [facility] Platelets (Bld) [#/Vol] 233 10*3/uL 150-450 [facility] No Panel InformationOrdered By: INDIRA ISABEL on 05-23-2023 Estimated GFR (MDRD) Amer 98 mL/min >60 [facility] Comment on above: GFR Calc Estimated GFR (MDRD) Non-Af Amer 81 mL/min >60 [facility] Comment on above: Non- GFR Calc VLDL Cholesterol 20 mg/dL 5-40 [facility] RBC Auto (Bld) [#/Vol]Ordere d By: INDIRA ISABEL on 05-23-2023 RBC (Bld) [#/Vol] 4.16 10*6/uL 4.2-5.4 [facility] Serum or plasma calcium tim urement (mass/volume)Ordered By: INDIRA ISABEL on 05-23-2023 Calcium [Mass/Vol] 9.0 mg/dL 8.5-10.1 [facility] Serum or plasma creatinine m easurement (mass/volume)Ordered By: INDIRA ISABEL on 05-23-2023 Creatinine [Mass/Vol] 0.74 mg/dL 0.55-1.02 [facility] Comment on above: The validity of the calculated GFR & GFRAA in patients over 70 years has not been determined. Clinical correlation is essential. Serum or plasma urea nitroge n measurement (mass/volume)Ordered By: INDIRA ISABEL on 05-23-2023 Urea nitrogen [Mass/Vol] 15 mg/dL 7-18 [facility] Thin prep Papanicolaou smear with manual screeningOrdered By: INDIRA ISABEL on 05-23-2023 Thin prep Papanicolaou smear with manual screening 3.5 g/dL 3.2-5.0 [facility] Thin prep Papanicolaou smear with manual screening 24 U/L 15-37 [facility] Thin prep Papanicolaou smear with manual screening 4 5-15 [facility] Whole blood hemoglobin A1c/t otal hemoglobin ratio (mass fraction)Ordered By: INDIRA ISABEL on 05-23-2023 HbA1c (Bld) [Mass fraction] 5.6 % 3.8-5.6 [facility] Comment on above: Normal < 5.7 % Predi abetic 5.7 - 6.4 % Diabetic >or= 6.5 % Please note range changes. ICD REMOTE CHECKon 3 AV Delay Adaptive Paced Minimum (ms) 140 ms [facility] AV Delay Adaptive Sensed Minimum (ms) 140 ms [facility] Gregory LV Pacing Amplitude (volts) 2.0 V [facility] Gregory LV Pacing Pulse Width (ms) 0.5 ms [facility] gregory LV Sensing Amplitude (mvolts) 1.0 mV [facility] Gregory RA Pacing Amplitude (volts) 2.0 V [facility] Gregory RA Pacing Polarity BI [facility] Gregory RA Pacing Pulse Width (ms) 0.5 ms [facility] Gregory RA Sensing Amplitude (mvolts) 0.25 mV [facility] Gregory RA Sensing Polarity BI [facility] Gregory RV Pacing Amplitude (volts) 2.5 V [facility] Gregory RV Pacing Polarity BI [facility] Gregory RV Pacing Pulse Width (ms) 0.5 ms [facility] Gregory RV Sensing Amplitude (mvolts) 0.3 mV [facility] Gregory RV Sensing Polarity BI [facility] Detection Configuration (Vent) 2 - Zone [facility] FastVT_Detection Interval 273 ms [facility] FastVT_Therapy Configuration 1 ATP(s) + 8 Shock(s) [facility] ICD FastVT DetectionStatus ENABLED [facility] ICD-AMS EPISODES 170 {beats}/min [facility] ICD-ATP Episodes (Vent) 0 C [facility] ICD-ATRIALFIBRILLATION 2 Cl [facility] ICD-ATRIALTACHYCARDIA 2 [facility] ICD-Device Mfg BSX [facility] ICD-LEADIMPEDANCEATRIAL 397 ohm [facility] ICD-Percent Pacing (Atrial) 16 % [facility] ICD-Percent Pacing (Vent) 100 % [facility] ICD-Shocks Aborted (Vent) 0 [facility] EEG-RQFIED-SONZUFWPN [address] [facility] ICD-SHOCKSABORTED 0 [facility] ICD-SHOCKSDELIVEREDVENTRI CULAR 0 [facility] ICD-Ventricular Fibrillation 0 [facility] ICD-VVDELAY_MS 0 ms [facility] Implant Date 05/19/2020 [facility] Lead Impedance (LV) 1058 ohm [facility] Lead Impedance (RV) 647 ohm [facility] Lead Impedance High Voltage 51 ohm [facility] Lead1 Mfg CPM [facility] Lead2 Mfg GDT [facility] Lead3 Mfg GDT [facility] Location RA [facility] Location RV [facility] Location LV [facility] Lower Rate (bpm) 60 {beats}/min [facility] LV PACING % 100 % [facility] Max Sensor Rate (bpm) 130 {beats}/min [facility] MDT_PROG_TACHY_ZONE_DETEC TIONS_STATUS ENABLED [facility] Model G151 DYNAGEN CURB HOP-D [facility] Model 4470 Fineline II Sterox EZ [facility] Model 0185 Endotak Cornish G [facility] Model 4543 EasyTrak 2 IS-1, 90 cm [facility] Pacing Mode DDD [facility] Serial Number [id number] [facility] Serial Number [id number] [facility] Serial Number [id number] [facility] Serial Number [id number] [facility] Test Charge Energy 23 J [facility] Test Charge Time 10.3 s [facility] Therapy Status (Vent) Enabled [facility] Thresh LV Capture Amplitude (volts) 1.0 V [facility] Thresh LV Capture Duration (ms) 0.5 ms [facility] Thresh RA Capture Amplitude (volts) 0.9 V [facility] Thresh RA Capture Duration (ms) 0.5 ms [facility] Thresh RV Capture Amplitude (VOLTS) 0.9 V [facility] Thresh RV Capture Duration (MS) 0.5 ms [facility] Tracking Rate (bpm) 130 {beats}/min [facility] VF Zone Detection Interval 273 ms [facility] VF Zone Therapy Configuration 1 ATP(s) + 8 Shock(s) [facility] No Panel Informationon 09-18 BLANK _ [facility] ICD-ATRIALTACHYCARDIA 0 [facility] ICD-Fast Ventricular Tachycardia 0 [facility] Implant Date 11/02/2008 [facility] ICD REMOTE CHECKon 3 AV Delay Adaptive Paced Minimum (ms) 140 ms [facility] AV Delay Adaptive Sensed Minimum (ms) 140 ms [facility] Gregory LV Pacing Amplitude (volts) 2.0 V [facility] Gregory LV Pacing Pulse Width (ms) 0.5 ms [facility] gregory LV Sensing Amplitude (mvolts) 1.0 mV [facility] Gregory RA Pacing Amplitude (volts) 2.0 V [facility] Gregory RA Pacing Polarity BI [facility] Gregory RA Pacing Pulse Width (ms) 0.5 ms [facility] Gregory RA Sensing Amplitude (mvolts) 0.25 mV [facility] Gregory RA Sensing Polarity BI [facility] Gregory RV Pacing Amplitude (volts) 2.5 V [facility] Gregory RV Pacing Polarity BI [facility] Gregory RV Pacing Pulse Width (ms) 0.5 ms [facility] [facility] Sensing Amplitude (mvolts) 0.3 mV [facility] Gregory RV Sensing Polarity BI [facility] Detection Configuration (Vent) 2 - Zone [facility] FastVT_Detection Interval 273 ms [facility] FastVT_Therapy Configuration 1 ATP(s) + 8 Shock(s) [facility] ICD FastVT DetectionStatus ENABLED [facility] ICD-AMS EPISODES 170 {beats}/min [facility] ICD-ATP Episodes (Vent) 0 C [facility] ICD-ATRIALFIBRILLATION 2 Cl [facility] ICD-ATRIALTACHYCARDIA 2 [facility] ICD-Device Mfg BSX [facility] ICD-LEADIMPEDANCEATRIAL 417 ohm [facility] ICD-Percent Pacing (Atrial) 15 % [facility] ICD-Percent Pacing (Vent) 100 % [facility] ICD-Shocks Aborted (Vent) 0 [facility] [id number] 0 [facility] ICD-SHOCKSABORTED 0 [facility] ICD-SHOCKSDELIVEREDVENTRI CULAR 0 [facility] ICD-Ventricular Fibrillation 0 [facility] ICD-VVDELAY_MS 0 ms [facility] Implant Date 05/19/2020 [facility] Lead Impedance (LV) 1039 ohm [facility] Lead Impedance (RV) 666 ohm [facility] Lead Impedance High Voltage 54 ohm [facility] Lead1 Mfg CPM [facility] Lead2 Mfg GDT [facility] Lead3 Mfg GDT [facility] Location RA [facility] Location RV [facility] Location LV [facility] Lower Rate (bpm) 60 {beats}/min [facility] LV PACING % 100 % [facility] Max Sensor Rate (bpm) 130 {beats}/min [facility] MDT_PROG_TACHY_ZONE_DETEC TIONS_STATUS ENABLED [facility] Model G151 DYNAGEN CURB HOP-D [facility] Model 4470 Fineline II Sterox EZ [facility] Model 0185 Endotak Cornish G [facility] Model 4543 EasyTrak 2 IS-1, 90 cm [facility] Pacing Mode DDD [facility] Serial Number [id number] [facility] Serial Number [id number] [facility] Serial Number [id number] [facility] Serial Number [id number] [facility] Test Charge Energy 23 J [facility] Test Charge Time 10.3 s [facility] Therapy Status (Vent) Enabled [facility] Thresh LV Capture Amplitude (volts) 1.0 V [facility] Thresh LV Capture Duration (ms) 0.5 ms [facility] Thresh RA Capture Amplitude (volts) 0.9 V [facility] Thresh RA Capture Duration (ms) 0.5 ms [facility] Thresh RV Capture Amplitude (VOLTS) 0.9 V [facility] Thresh RV Capture Duration (MS) 0.5 ms [facility] Tracking Rate (bpm) 130 {beats}/min [facility] VF Zone Detection Interval 273 ms [facility] VF Zone Therapy Configuration 1 ATP(s) + 8 Shock(s) [facility] No Panel Informationon 06-16 BLANK _ [facility] ICD-ATRIALTACHYCARDIA 0 [facility] ICD-Fast Ventricular Tachycardia 0 [facility] Implant Date 11/02/2008 [facility] Basophil percentageOrdered B y: Dr. Pena on 05-22-2022 Bilirubin [Mass/Vol] 0.30 mg/dL 0.20-1.00 [facility] Comment on above: For patients on eltr ombopag therapy, use of Dimension Loving TBIL is not recommended. Chloride [Moles/Vol] 107 mmol/L 98-107 [facility] Cholesterol [Mass/Vol] 148 mg/dL <[address] [facility] Comment on above: <200 mg/dL Desirable 200-240 mg/dL Borderline >240 mg/dL High Risk Glucose [Mass/Vol] 96 mg/dL 74-106 [facility] Potassium [Moles/Vol] 4.4 mmol/L 3.5-5.1 [facility] Protein [Mass/Vol] 7.1 g/dL 6.4-8.2 [facility] Sodium [Moles/Vol] 140 mmol/L 136-145 [facility] Triglyceride [Mass/Vol] 88 mg/dL <199 [facility] Comment on above: The drugs N-Acetylcy steine and Metamizole may falsely depress this assay.Serum Triglycerides Reference Interval Normal <150 mg/dL Borderline high 150 - 199 mg/dL High 200 - 499 mg/dL Very High > or = 500 mg/dL WBC (Bld) [#/Vol] 5.4 10*3/uL 4.4-11.0 [facility] Blood erythrocytes count (nu mber/volume)Ordered By: Dr. Pena on 05-22-2022 RBC (Bld) [#/Vol] 3.98 10*6/uL 4.2-5.4 [facility] Blood hemoglobin measurement (mass/volume)Ordered By: Dr. Pena on 05-22-2022 Hemoglobin (Bld) [Mass/Vol] 12.3 g/dL 12.0-15.0 [facility] Blood platelet mean volumeOr dered By: Dr. Pena on 05-22-2022 Platelet mean volume (Bld) [Entitic vol] 10.7 fL 6.2-12.0 [facility] Cholesterol in LDL Direct as say [Mass/Vol]Ordered By: Dr. Pena on 05-22-2022 Cholesterol in LDL [Mass/Vol] 78 mg/dL 0-99 [facility] Comment on above: Performed at: [address] [id number] Director: Anmol Morales PhD, Phone: [phone] Determination of erythrocyte mean corpuscular volume (MCV)Ordered By: Dr. Pena on 05-22-2022 MCV (RBC) [Entitic vol] 97.5 fL 81-99 [facility] Hematocrit Auto (Bld) [Volum e fraction]Ordered By: Dr. Pena on 05-22-2022 Hematocrit (Bld) [Volume fraction] 38.8 % 37-47 [facility] Laboratory - Chemistry and C hemistry - challengeOrdered By: Dr. Pena on 05-22-2022 ALP [Catalytic activity/Vol] 72 U/L 45-117 [facility] ALT [Catalytic activity/Vol] 23 U/L 13-56 [facility] CO2 [Moles/Vol] 25.0 mmol/L 21.0-32.0 [facility] Globulin (S) [Mass/Vol] 3.8 g/dL 2.2-4.2 [facility] Urea nitrogen/Creatinine [Mass ratio] 23.6 mg/mg 10-20 [facility] Laboratory - Hematology and Cell countsOrdered By: Dr. Pena on 05-22-2022 Erythrocyte distribution width (RBC) [Entitic vol] 46.5 fL 35.1-43.9 [facility] Erythrocyte distribution width (RBC) [Ratio] 12.9 % 11.6-14.6 [facility] MCH (RBC) [Entitic mass] 30.9 pg 27.0-32.0 [facility] Laboratory - Miscellaneous t estsOrdered By: Dr. Pena on 05-22-2022 Service comment (Unsp spec) [Interp] TNP [facility] Comment on above: Test not performed MCHC Auto (RBC) [Mass/Vol]Or dered By: Dr. Pena on 05-22-2022 MCHC (RBC) [Mass/Vol] 31.7 g/dL 32-36 [facility] No Panel InformationOrdered By: Dr. Pena on 05-22-2022 Estimated GFR (MDRD) Amer 108 mL/min >60 [facility] Comment on above: GFR Calc Estimated GFR (MDRD) Non-Af Amer 89 mL/min >60 [facility] Comment on above: Non- GFR Calc Thyroid Stimulating Hormone (TSH) 4.01 uIU/mL 0.358-3.74 [facility] Vitamin D 25-Hydroxy 81.5 ng/mL [facility] Comment on above: Vitamin D 25(OH) Sta tus Range Deficiency <20 ng/mL (50nmol/L) Insufficiency 20 - 30 ng/mL (50 - 75 nmol/L) Sufficiency 30 - 100 ng/mL (75 - 250 nmol/L) Toxicity >100 ng/mL (>250 nmol/L) Platelets bldOrdered By: Dr. Pena on 05-22-2022 Platelets (Bld) [#/Vol] 245 10*3/uL 150-450 [facility] Serum or plasma albumin tim urement (mass/volume)Ordered By: Dr. Pena on 05-22-2022 Albumin [Mass/Vol] 3.3 g/dL 3.2-5.0 [facility] Serum or plasma albumin/glob ulin mass ratioOrdered By: Dr. Pena on 05-22-2022 Albumin/Globulin [Mass ratio] 0.9 {ratio} 0.9-2.4 [facility] Serum or plasma calcium tim urement (mass/volume)Ordered By: Dr. Pena on 05-22-2022 Calcium [Mass/Vol] 9.1 mg/dL 8.5-10.1 [facility] Serum or plasma cholesterol in HDL measurement (mass/volume)Ordered By: Dr. Pena on 05-22-2022 Cholesterol in HDL [Mass/Vol] 60 mg/dL >40 [facility] Comment on above: The drugs N-Acetylcy steine and Metamizole may falsely depress this assay. Reference Range HDL <40 mg/dL Low HDL Cholesterol HDL >or= 60 mg/dL High HDL Cholesterol Serum or plasma cholesterol in VLDL measurement (mass/volume)Ordered By: Dr. Pena on 05-22-2022 Cholesterol in VLDL [Mass/Vol] 18 mg/dL 5-40 [facility] Serum or plasma creatinine m easurement (mass/volume)Ordered By: Dr. Pena on 05-22-2022 Creatinine [Mass/Vol] 0.68 mg/dL 0.55-1.02 [facility] Comment on above: The validity of the calculated GFR & GFRAA in patients over 70 years has not been determined. Clinical correlation is essential. Serum or plasma low density lipoprotein (LDL) cholesterol measurement (mass/volume)Ordered By: Dr. Pena on 05-22-2022 Cholesterol in LDL [Mass/Vol] 70 mg/dL 0-130 [facility] Serum or plasma urea nitroge n measurement (mass/volume)Ordered By: Dr. Pena on 05-22-2022 Urea nitrogen [Mass/Vol] 16 mg/dL 7-18 [facility] Thin prep Papanicolaou smear with manual screeningOrdered By: Dr. Pena on 05-22-2022 Thin prep Papanicolaou smear with manual screening 22 U/L 15-37 [facility] Thin prep Papanicolaou smear with manual screening 8 5-15 [facility] Whole blood hemoglobin A1c/t otal hemoglobin ratio (mass fraction)Ordered By: Dr. Pena on 05-22-2022 HbA1c (Bld) [Mass fraction] 5.5 % 3.8-5.6 [facility] Comment on above: Normal < 5.7 % Predi abetic 5.7 - 6.4 % Diabetic >or= 6.5 % Please note range changes. ICD REMOTE CHECKon 3 AV Delay Adaptive Paced Minimum (ms) 140 ms [facility] AV Delay Adaptive Sensed Minimum (ms) 140 ms [facility] Gregory LV Pacing Amplitude (volts) 2 V [facility] Gregory LV Pacing Pulse Width (ms) 0.5 ms [facility] gregory LV Sensing Amplitude (mvolts) 1 mV [facility] Gregory RA Pacing Amplitude (volts) 2 V [facility] Gregory RA Pacing Polarity BI [facility] Gregory RA Pacing Pulse Width (ms) 0.5 ms [facility] Gregory RA Sensing Amplitude (mvolts) 0.25 mV [facility] Gregory RA Sensing Polarity BI [facility] Gregory RV Pacing Amplitude (volts) 2.5 V [facility] Gregory RV Pacing Polarity BI [facility] Gregory RV Pacing Pulse Width (ms) 0.5 ms [facility] Gregory RV Sensing Amplitude (mvolts) 0.3 mV [facility] Gregory RV Sensing Polarity BI [facility] Detection Configuration (Vent) 2 - Zone [facility] FastVT_Detection Interval 273 ms [facility] FastVT_Therapy Configuration 1 ATP(s) + 8 Shock(s) [facility] ICD FastVT DetectionStatus ENABLED [facility] ICD-AMS EPISODES 170 {beats}/min [facility] ICD-ATP Episodes (Vent) 0 C [facility] ICD-ATRIALFIBRILLATION 2 Cl [facility] ICD-ATRIALTACHYCARDIA 2 [facility] ICD-Device Mfg BSX [facility] ICD-LEADIMPEDANCEATRIAL 420 ohm [facility] ICD-Percent Pacing (Atrial) 13 % [facility] ICD-Percent Pacing (Vent) 100 % [facility] ICD-Shocks Aborted (Vent) 0 [facility] [id number] 0 [facility] ICD-SHOCKSABORTED 0 [facility] ICD-SHOCKSDELIVEREDVENTRI CULAR 0 [facility] ICD-Ventricular Fibrillation 0 [facility] ICD-VVDELAY_MS 0 ms [facility] Implant Date 05/19/2020 [facility] Lead Impedance (LV) 1028 ohm [facility] Lead Impedance (RV) 685 ohm [facility] Lead Impedance High Voltage 55 ohm [facility] Lead1 Mfg CPM [facility] Lead2 Mfg GDT [facility] Lead3 Mfg GDT [facility] Location RA [facility] Location RV [facility] Location LV [facility] Lower Rate (bpm) 60 {beats}/min [facility] LV PACING % 100 % [facility] Max Sensor Rate (bpm) 130 {beats}/min [facility] MDT_PROG_TACHY_ZONE_DETEC TIONS_STATUS ENABLED [facility] Model G151 DYNAGEN CURB HOP-D [facility] Model 4470 Fineline II Sterox EZ [facility] Model 0185 Endotak Cornish G [facility] Model 4543 EasyTrak 2 IS-1, 90 cm [facility] Pacing Mode DDD [facility] Serial Number [id number] [facility] Serial Number [id number] [facility] Serial Number [id number] [facility] Serial Number [id number] [facility] Test Charge Energy 23 J [facility] Test Charge Time 10.2 s [facility] Therapy Status (Vent) Enabled [facility] Thresh LV Capture Amplitude (volts) 1 V [facility] Thresh LV Capture Duration (ms) 0.5 ms [facility] Thresh RA Capture Amplitude (volts) 0.9 V [facility] Thresh RA Capture Duration (ms) 0.5 ms [facility] Thresh RV Capture Amplitude (VOLTS) 0.9 V [facility] Thresh RV Capture Duration (MS) 0.5 ms [facility] Tracking Rate (bpm) 130 {beats}/min [facility] VF Zone Detection Interval 273 ms [facility] VF Zone Therapy Configuration 1 ATP(s) + 8 Shock(s) [facility] No Panel Informationon 03-16 BLANK _ [facility] ICD-ATRIALTACHYCARDIA 0 [facility] ICD-Fast Ventricular Tachycardia 0 [facility] Implant Date 11/02/2008 [facility] ICD REMOTE CHECKon AV Delay Adaptive Paced Minimum (ms) 140 ms [facility] AV Delay Adaptive Sensed Minimum (ms) 140 ms [facility] Gregory LV Pacing Amplitude (volts) 2 V [facility] Gregory LV Pacing Pulse Width (ms) 0.5 ms [facility] gregory LV Sensing Amplitude (mvolts) 1 mV [facility] Gregory RA Pacing Amplitude (volts) 2 V [facility] Gregory RA Pacing Polarity BI [facility] Gregory RA Pacing Pulse Width (ms) 0.5 ms [facility] Gregory RA Sensing Amplitude (mvolts) 0.25 mV [facility] Gregory RA Sensing Polarity BI [facility] Gregory RV Pacing Amplitude (volts) 2.5 V [facility] Gregory RV Pacing Polarity BI [facility] Gregory RV Pacing Pulse Width (ms) 0.5 ms [facility] Gregory RV Sensing Amplitude (mvolts) 0.3 mV [facility] Gregory RV Sensing Polarity BI [facility] Detection Configuration (Vent) 2 - Zone [facility] FastVT_Detection Interval 273 ms [facility] FastVT_Therapy Configuration 1 ATP(s) + 8 Shock(s) [facility] ICD FastVT DetectionStatus ENABLED [facility] ICD-AMS EPISODES 170 {beats}/min [facility] ICD-ATP Episodes (Vent) 0 C [facility] ICD-ATRIALFIBRILLATION 2 Cl [facility] ICD-ATRIALTACHYCARDIA 2 [facility] ICD-Device Mfg BSX [facility] ICD-LEADIMPEDANCEATRIAL 479 ohm [facility] ICD-Percent Pacing (Atrial) 11 % [facility] ICD-Percent Pacing (Vent) 100 % [facility] ICD-Shocks Aborted (Vent) 0 [facility] [id number] 0 [facility] ICD-SHOCKSABORTED 0 [facility] ICD-SHOCKSDELIVEREDVENTRI CULAR 0 [facility] ICD-Ventricular Fibrillation 0 [facility] ICD-VVDELAY_MS 0 ms [facility] Implant Date 05/19/2020 [facility] Lead Impedance (LV) 1057 ohm [facility] Lead Impedance (RV) 631 ohm [facility] Lead Impedance High Voltage 52 ohm [facility] Lead1 Mfg CPM [facility] Lead2 Mfg GDT [facility] Lead3 Mfg GDT [facility] Location RA [facility] Location RV [facility] Location LV [facility] Lower Rate (bpm) 60 {beats}/min [facility] LV PACING % 100 % [facility] Max Sensor Rate (bpm) 130 {beats}/min [facility] MDT_PROG_TACHY_ZONE_DETEC TIONS_STATUS ENABLED [facility] Model G151 DYNAGEN CURB HOP-D [facility] Model 4470 Fineline II Sterox EZ [facility] Model 0185 Endotak Cornish G [facility] Model 4543 EasyTrak 2 IS-1, 90 cm [facility] Pacing Mode DDD [facility] Serial Number [id number] [facility] Serial Number [id number] [facility] Serial Number [id number] [facility] Serial Number [id number] [facility] Test Charge Energy 23 J [facility] Test Charge Time 10.1 s [facility] Therapy Status (Vent) Enabled [facility] Thresh LV Capture Amplitude (volts) 1 V [facility] Thresh LV Capture Duration (ms) 0.5 ms [facility] Thresh RA Capture Amplitude (volts) 0.9 V [facility] Thresh RA Capture Duration (ms) 0.5 ms [facility] Thresh RV Capture Amplitude (VOLTS) 0.9 V [facility] Thresh RV Capture Duration (MS) 0.5 ms [facility] Tracking Rate (bpm) 130 {beats}/min [facility] VF Zone Detection Interval 273 ms [facility] VF Zone Therapy Configuration 1 ATP(s) + 8 Shock(s) [facility] No Panel Informationon 09-15 BLANK _ [facility] ICD-ATRIALTACHYCARDIA 0 [facility] ICD-Fast Ventricular Tachycardia 0 [facility] Implant Date 11/02/2008 [facility] ICD REMOTE CHECKon 2 AV Delay Adaptive Paced Minimum (ms) 140 ms [facility] AV Delay Adaptive Sensed Minimum (ms) 140 ms [facility] Gregory LV Pacing Amplitude (volts) 2 V [facility] Gregory LV Pacing Pulse Width (ms) 0.5 ms [facility] gregory LV Sensing Amplitude (mvolts) 1 mV [facility] Gregory RA Pacing Amplitude (volts) 2 V [facility] Gregory RA Pacing Polarity BI [facility] Gregory RA Pacing Pulse Width (ms) 0.5 ms [facility] Gregory RA Sensing Amplitude (mvolts) 0.25 mV [facility] Gregory RA Sensing Polarity BI [facility] Gregroy RV Pacing Amplitude (volts) 2.5 V [facility] Gregory RV Pacing Polarity BI [facility] Gregory RV Pacing Pulse Width (ms) 0.5 ms [facility] Gregory RV Sensing Amplitude (mvolts) 0.3 mV [facility] Gregory RV Sensing Polarity BI [facility] Detection Configuration (Vent) 2 - Zone [facility] FastVT_Detection Interval 273 ms [facility] FastVT_Therapy Configuration 1 ATP(s) + 8 Shock(s) [facility] ICD FastVT DetectionStatus ENABLED [facility] ICD-AMS EPISODES 170 {beats}/min [facility] ICD-ATP Episodes (Vent) 0 [facility] ICD-ATRIALFIBRILLATION 2 Cl [facility] ICD-ATRIALTACHYCARDIA 2 [facility] ICD-Device Mfg BSX [facility] ICD-LEADIMPEDANCEATRIAL 467 ohm [facility] ICD-Percent Pacing (Atrial) 9 % [facility] ICD-Percent Pacing (Vent) 100 % [facility] ICD-Shocks Aborted (Vent) 0 [facility] [id number] 0 [facility] ICD-SHOCKSABORTED 0 [facility] ICD-SHOCKSDELIVEREDVENTRI CULAR 0 [facility] ICD-Ventricular Fibrillation 0 [facility] ICD-VVDELAY_MS 0 ms [facility] Implant Date 05/19/2020 [facility] Lead Impedance (LV) 999 ohm [facility] Lead Impedance (RV) 626 ohm [facility] Lead Impedance High Voltage 50 ohm [facility] Lead1 Mfg CPM [facility] Lead2 Mfg GDT [facility] Lead3 Mfg GDT [facility] Location RA [facility] Location RV [facility] Location LV [facility] Lower Rate (bpm) 60 {beats}/min [facility] LV PACING % 100 % [facility] Max Sensor Rate (bpm) 130 {beats}/min [facility] MDT_PROG_TACHY_ZONE_DETEC TIONS_STATUS ENABLED [facility] Model G151 DYNAGEN CURB HOP-D [facility] Model 4470 Fineline II Sterox EZ [facility] Model 0185 Endotak Cornish G [facility] Model 4543 EasyTrak 2 IS-1, 90 cm [facility] Pacing Mode DDD [facility] Serial Number [id number] [facility] Serial Number [id number] [facility] Serial Number [id number] [facility] Serial Number [id number] [facility] Test Charge Energy 23 [facility] Test Charge Time 10.1 s [facility] Therapy Status (Vent) Enabled [facility] Thresh LV Capture Amplitude (volts) 1 V [facility] Thresh LV Capture Duration (ms) 0.5 ms [facility] Thresh RA Capture Amplitude (volts) 0.9 V [facility] Thresh RA Capture Duration (ms) 0.5 ms [facility] Thresh RV Capture Amplitude (VOLTS) 0.9 V [facility] Thresh RV Capture Duration (MS) 0.5 ms [facility] Tracking Rate (bpm) 130 {beats}/min [facility] VF Zone Detection Interval 273 ms [facility] VF Zone Therapy Configuration 1 ATP(s) + 8 Shock(s) [facility] No Panel Informationon 06-16 BLANK _ [facility] ICD-ATRIALTACHYCARDIA 0 [facility] ICD-Fast Ventricular Tachycardia 0 [facility] Implant Date 11/02/2008 [facility] Encounters Encounter Date Encounter Type Care Provider Facility Start: 05-28-2024 End: 05-28-2024 Emergency department patient visit AYLIN REILLY Facility:[facility] Start: 04-29-2024 End: 04-29-[address] Anabella Pena MD Work Phone: [facility] Work Phone: Start: 04-29-2024 End: 04-29-2024 [facility] encounter [facility] Start: 04-29-2024 End: 04-29-2024 ambulatory INDIRA ISABEL Facility:[facility] Start: 04-10-2024 End: 04-10-2024 ambulatory ANABELLA PENA Facility: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 Start: 06-14-2023 Follow-up encounter Jovanni pedraza MD Work Phone: [facility] Department Start: 06-14-2023 Patient encounter procedure Jovanni Wilks MD Work Phone: [facility] Start: 05-23-2023 End: 05-23-2023 ambulatory [facility] Work Phone: Start: 05-23-2023 End: 05-23-2023 Patient encounter procedure [facility] Work Phone: Start: 09-14-2022 Follow-up encounter Jovanni pedraza MD Work Phone: [facility] Start: 09-14-2022 ICD Remote F/U Jovanni Cuevas Work Phone: [facility] Department Start: 06-22-2022 Telephone encounter Judy GORMAN-C Work Phone: General Surgery Comment on above: 09/06/2022 Colon medin a Start: 06-19-2022 Telephone encounter Anatoly Mane MD Work Phone: [facility] [place] Comment on above: Orders Start: 06-15-2022 Follow-up encounter Jovanni pedraza MD Work Phone: [facility] Start: 06-15-2022 ICD Remote F/U Jovanni Cuevas Work Phone: [facility] Department Start: 05-22-2022 End: 05-22-2022 ambulatory [facility] Work Phone: Start: 05-22-2022 End: 05-22-2022 Patient encounter procedure [facility] Start: 03-16-2022 Follow-up encounter Jovanni pedraza MD Work Phone: [facility] Start: 03-16-2022 ICD Remote F/U Jovanni Cuevas Work Phone: [facility] Department Start: 09-15-2021 Follow-up encounter Jovanni pedraza MD Work Phone: [facility] Start: 09-15-2021 ICD Remote F/U Jovanni Cuevas Work Phone: [facility] Department Start: 06-16-2021 Follow-up encounter Jovanni pedraza MD Work Phone: [facility] Start: 06-16-2021 ICD Remote F/U Jovanni Cuevas Work Phone: [facility] Department Start: 11-02-2008 Patient encounter procedure Jovanni Wilks MD Work Phone: [facility] Work Phone: Procedures Date Procedure Procedure Detail Performing Clinician Start: 04-10-2024 Computerized ophthal francis imaging retina Nancy Donovan MD, PhD Work Phone: Start: 10-04-2023 Computerized ophthal francis imaging retina Nancy Donovan MD, PhD Work Phone: Start: 06-14-2023 ICD REMOTE CHECK Jovanni Wilks MD Work Phone: Start: 09-14-2022 ICD REMOTE CHECK Jovanni Wilks MD Work Phone: Start: 06-15-2022 ICD REMOTE CHECK Jovanni Wilks MD Work Phone: Start: 03-16-2022 ICD REMOTE CHECK Jovanni Wilks MD Work Phone: Start: 09-15-2021 ICD REMOTE CHECK Jovanni Wilks MD Work Phone: Start: 06-16-2021 ICD REMOTE CHECK Jovanni Wilks MD Work Phone: Start: 05-09-2010 Adult depression screening assessment Jovanni Wilks MD Work Phone: Start: 03-31-2008 History of coronary artery bypass grafting S/P CABG X2 (BEDOLLA-->LAD, SVG-->DIAG) MV REPAIR WITH [facility]28 Jovanni Wilks MD Work Phone: Plan of Treatment Date Care Activity Detail Author Start: 04-25-2025 End: 10-02-2025 OCT ANGIOGRAPHY OU (BOTH EYES) OCT ANGIOGRAPHY OU (BOTH EYES) [facility] Imaging Routine Type 2 diabetes mellitus with both eyes affected by moderate nonproliferative retinopathy without macular edema, with long-term current use of insulin (HCC) Advanced atrophic 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 Expected: 04/25/2025, Expires: 10/02/2025 [facility] Comment on above: Expected: 04/25/2025 , Expires: 10/02/2025 Start: 04-25-2025 End: 10-02-2025 OCT MACULA CIRRUS OU (BOTH EYES) OCT MACULA CIRRUS OU (BOTH EYES) [facility] Imaging Routine Type 2 diabetes mellitus with both eyes affected by moderate nonproliferative retinopathy without macular edema, with long-term current use of insulin (HCC) Advanced atrophic 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 Expected: 04/25/2025, Expires: 10/02/2025 [facility] Work Phone: Comment on above: Expected: 04/25/2025 , Expires: 10/02/2025 Start: 04-10-2025 Glaucoma screening Dilated Retinal E xam [facility] Start: 10-18-2024 End: 03-27-2025 OCT MACULA CIRRUS OU (BOTH EYES) OCT MACULA CIRRUS OU (BOTH EYES) [facility] Imaging Routine Type 2 diabetes mellitus with both eyes affected by moderate nonproliferative retinopathy without macular edema, with long-term current use of insulin (HCC) Advanced atrophic 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 Expected: 10/18/2024, Expires: 03/27/2025 [facility] Work Phone: Comment on above: Expected: 10/18/2024 , Expires: 03/27/2025 Start: 10-09-2024 End: 10-09-2024 Patient encounter procedure 10/09/2024 9:15 AM EDT Office Visit [facility] Ophthalmology [address] [place] [address] Nancy Donovan MD, PhD [address] [place] [address] *DFE/ OCT/OCTa both eyes- full exam. Ophthalmology Comment on above: *DFE/ OCT/OCTa both eyes- full exam. Start: 04-10-2024 End: 04-10-2024 Patient encounter procedure 04/10/2024 9:15 AM EST Office Visit [facility] Op[facility] [address] [place] [address] Nancy Donovan MD, PhD [id number] [facility] [place] [place] [address] DFE/ OCT both eyes- full exam Ophthalmology Comment on above: DFE/ OCT both eyes- full exam Start: 03-05-2024 Advance Directive Discussion Advance Directive Discussion [facility] Start: 11-04-2023 Covid-19 Vaccine () Covid-19 Vaccine () [facility] Start: 11-04-2023 Influenza vaccination Influenza Vacc ine (#1) [facility] Start: 06-22-2023 BP CONTROLLED (<130/80) BP CONTROLLED (<130/80) [facility] Start: 03-05-2023 Advance Directive Discussion Advance Directive Discussion [facility] Start: 03-05-2023 Behavioral Health Screening Behavioral Health Screening [facility] Start: 11-03-2022 Covid-19 Vaccine () Covid-19 Vaccine ( season) [facility] Start: 11-03-2022 Influenza vaccination [facility] Start: 04-08-2022 COVID-19 VACCINE (5 - Moderna series) COVID-19 VACCINE (5 - Moderna series) [facility] Start: 03-05-2022 ADVANCE DIRECTIVE DISCUSSION ADVANCE DIRECTIVE DISCUSSION [facility] Start: 03-05-2022 DEPRESSION ASSESSMENT DEPRESSION ASS ESSMENT [facility] Start: 11-03-2021 Influenza vaccination C [facility] Start: 03-05-2021 ADVANCE DIRECTIVE DISCUSSION ADVANCE DIRECTIVE DISCUSSION [facility] Start: 03-05-2021 DEPRESSION ASSESSMENT DEPRESSION ASS ESSMENT [facility] Start: 06-27-2019 RSV Vaccine (1 - 1-dose 75+ series) RSV Vaccine (1 - 1-dose 75+ series) [facility] Start: 02-12-2017 Pneumococcal Vaccine : 50+ (2 of 2 - PPSV23) Pneumococcal Vaccine: 50+ (2 of 2 - PPSV23) [facility] Start: 02-12-2017 Pneumococcal Vaccine : 65+ (2 of 2 - PPSV23 or PCV20) Pneumococcal Vaccine: 65+ (2 of 2 - PPSV23 or PCV20) [facility] Start: 05-10-2011 Adult depression screening assessment DEPRESSION SCREENING [facility] Start: 2009 BONE DENSITY BONE DENSITY [facility] Start: 2009 PNEUMOVAX AGE 65 AND OVER WITH 5YR LOOKBACK (#1) PNEUMOVAX AGE 65 AND OVER WITH 5YR LOOKBACK (#1) [facility] Start: 2009 Screening for osteoporosis Bone Density Screening [facility] Start: 04-06-2009 Hepatitis B surface antibody level LDL CHOLESTEROL [facility] Start: 10-04-2008 Hemoglobin A1c measurement HbA1C [facility] Start: 10-04-2008 Hemoglobin A1c/Hemoglobin.total in Blood HBA1C [facility] Start: 2004 RSV Vaccine (1 - 1-dose 60+ series) RSV Vaccine (1 - 1-dose 60+ series) [facility] Start: 1994 SHINGRIX VACCINE (1 of 2) SHINGRIX VACCINE (1 of 2) [facility] Start: 06-27-1963 Urine microalbumin profile [facility] Start: 1962 ANNUAL PCP TEAM CHRONIC DISEASE VISIT ANNUAL PCP TEAM CHRONIC DISEASE VISIT [facility] Start: 1962 Anxiety Screening Anxiety Screening [facility] Start: 1962 BP CONTROLLED (<130/80) BP CONTROLLED (<130/80) [facility] Start: 1962 Depression Screening Depression Scre ening [facility] Start: 1954 3 comp foot exam completed DIABETIC FOOT EXAM [facility] Start: 1954 Diabetic foot examination Diabetic Foot Exam [facility] Start: 1954 Glaucoma screening Dilated Retinal E xam [facility] Start: 1954 Hepatitis B screening URINE AL BUMIN:CREATININE RATIO [facility] Start: 1954 Hepatitis C antibody , confirmatory test DILATED RETINAL EXAM [facility] Start: 1950 PNEUMOCOCCAL: 65+ (1 - PCV) PNEUMOCOCCAL: 65+ (1 - PCV) [facility] Start: 1949 COVID-19 VACCINE (1) COVID-19 VACCIN E (1) [facility] Start: 1944 COVID-19 VACCINE (#1) COVID-19 VACCI NE (#1) [facility] End: 06-23-2023 Screening colonoscopy COLONOSCOPY SCREENING Endoscopy Routine History of colonic polyps 1 Occurrences starting 06/22/2022 until 06/23/2023 [facility] Work Phone: Comment on above: 1 Occurrences starti ng 06/22/2022 until 06/23/2023 Immunizations Immunization Date Immunization Notes Care Provider Deep freed 11-30-2022 influenza virus vacc ine, unspecified formulation Nancy Donovan MD, PhD Work Phone: [facility] 12-25-2008 influenza virus vacc ine, unspecified formulation Jovanni Wilks MD Work Phone: [facility] Payers Date Payer Category Payer Self-pay 2009 Medicare MEDICARE MEDICAR E A AND B [id number] 2009-Present [phone] [place] [address] Medicare [id number] 2009 Medicare MEDICARE MEDICAR E A AND B [id number] 2009-Present [phone] [address] [address] [place] [address] Medicare [id number] 2009 Medicare [id number] 2006 Unknown [employer] BL[employer] CARD PPO OOS [id number] 2006-Present [phone] [address] [place] [address] PPO [id number] 2006 Unknown [employer] BL[employer] CARD PPO OOS [id number] 2006-Present [phone] [address] [place] [address] PPO [id number] 2006 Unknown [id number] Unknown [id number] Unknown [id number] Social History Date Type Detail Facility Start: 05-09-2010 End: 05-22-2022 Tobacco smoking status NHIS Never smoked tobacco [facility] Start: 05-09-2010 End: 06-21-2022 Tobacco use and exposure Smokeless tobacco non-user [facility] Start: 05-17-2020 End: 04-10-2024 Alcohol intake Current non-drinker of alcohol (finding) [facility] Start: 1945 Sex Assigned At Not on file [facility] Start: 05-22-2022 Tobacco smoking stat us LAIS Unknown if ever smoked [facility] Start: 1945 Sex Assigned At Female [facility] Start: 06-21-2022 End: 06-20-2023 History of Social function [facility] Start: 06-21-2022 End: 06-20-2023 Tobacco use panel [facility] National Score (1-100), lower number is lower risk 51 [facility] Start: 05-13-2024 Sex Female (finding) Woabdirashid r [facility] Medical Equipment Procedure Code Equipment Code Equipment Origin al Text Equipment Identifier Dates [id number] Dynagen [id number] Start: 05-19-2020 [id number] Easy trak 2 Is-1, 90 Cm [id number] Start: 11-02-2008 [id number] Endo jerry Cornish G [id number] Start: 11-02-2008 Other [address] in[place] Ii Sterox Ez [id number] Start: 11-02-2008 Clinical Notes 04-10-2008 to 04-10-2024 Nancy Donovan MD, PhD - 04/10/2024 9:21 AM ESTPatient InstructionsNancy Donovan MD, PhD - 10/04/2023 10:30 AM EDTTelephone Encounter - Judy Beasley PA-C - 06/27/2022 11:20 AM EDT Note Date & Type Note Facility 04-10-2024 Note Date of Procedure 04/10/2024. 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 OCT Macula Interpretation Right Eye Abnormal foveal contour. Findings include Drusen, IS/OS junction, Atrophy; Negative for Intraretinal fluid, Cystoid macular edema, Subretinal fluid. Left Eye Normal foveal contour. Findings include Drusen, IS/OS junction, Atrophy; Negative for Intraretinal fluid, Cystoid macular edema, Subretinal fluid. ZEISS 04-10-2024 Note HNO ID: [id number] Author: NANCY DONOVAN MD, PhD Service: ? Author Type: Physician Type: Progress Notes Filed: 04/10/2024 10:34 Note Text: Referred by Dr. Trinidad for diabetic retinopathy eval (also saw Dr. Daniels) Patient started noticing changes in vision right eye about 1 year ago, it has been gradual 1. INSULIN DEPENDENT type 2 diabetes -Recommend good blood pressure/sugar control -A1C reported 5.6 Hemoglobin A1C (%) Date Value 04/06/2008 6.2 -on dialysis: No Non-Proliferative Diabetic Retinopathy Mild/Mod right eye -history of Panretinal laser photocoagulation (PRP): No -history of injections: No Non-Proliferative Diabetic Retinopathy Mild left eye -history of Panretinal laser photocoagulation (PRP): No -history of injections: No 2. advanced nonexudative Age related macular degeneration Both eyes -history of smoking N -history of plaquenil: No -history of pentosan: No -rec AREDs 2 vitamins/amsler grid monitoring -discussed syvofre/izervay but do not recommend starting treatment 3. Posterior vitreous detachment (PVD) left eye -Retinal detachment precautions reviewed 4. posterior chamber intraocular lens (PCIOL) both eyes -done in 2012 -stable Plan: No change in atrophy Rec observation Return in 6 mo for full exam I have confirmed and edited as necessary the relevant HPI, ophthalmic history, ROS, and the neuro exam findings as obtained by others. I have seen and examined Allie Murillo. I have discussed the case and the management of this patient's care with the Resident/Fellow, if applicable. I also have reviewed and agree with the assessment and plan as stated above and agree with all of its relevant components. Nancy Donovan MD [facility] 04-10-2024 History of Presen t illness Narrative Referred by Dr. Trinidad for diabetic retinopathy eval (also saw Dr. Daniels) Patient started noticing changes in vision right eye about 1 year ago, it has been gradual 1. INSULIN DEPENDENT type 2 diabetes -Recommend good blood pressure/sugar control -A1C reported 5.6 Hemoglobin A1C (%) Date Value 04/06/2008 6.2 -on dialysis: No Non-Proliferative Diabetic Retinopathy Mild/Mod right eye -history of Panretinal laser photocoagulation (PRP): No -history of injections: No Non-Proliferative Diabetic Retinopathy Mild left eye -history of Panretinal laser photocoagulation (PRP): No -history of injections: No 2. advanced nonexudative Age related macular degeneration Both eyes -history of smoking N -history of plaquenil: No -history of pentosan: No -rec AREDs 2 vitamins/amsler grid monitoring -discussed syvofre/izervay but do not recommend starting treatment 3. Posterior vitreous detachment (PVD) left eye -Retinal detachment precautions reviewed 4. posterior chamber intraocular lens (PCIOL) both eyes -done in 2013 -stable Plan: No change in atrophy Rec observation Return in 6 mo for full exam I have confirmed and edited as necessary the relevant HPI, ophthalmic history, ROS, and the neuro exam findings as obtained by others. I have seen and examined Allie Murillo. I have discussed the case and the management of this patient's care with the Resident/Fellow, if applicable. I also have reviewed and agree with the assessment and plan as stated above and agree with all of its relevant components. Nancy Donovan MD documented in this encounter [facility] 10-04-2023 Note Date of Procedure 10/04/2023. Interpretation Right Eye Abnormal foveal contour. Findings include Drusen, IS/OS junction, Atrophy; Negative for Intraretinal fluid, Cystoid macular edema, Subretinal fluid. Left Eye Normal foveal contour. Findings include Drusen, IS/OS junction, Atrophy; Negative for Intraretinal fluid, Subretinal fluid. ZEISS 10-04-2023 Instructions Nancy Donovan MD, PhD - 10/04/2023 12:40 PM EDT Images from the original note were not included. EYE VITAMINS: The doctor has asked you to start taking the AREDS 2 Eye Vitamins. These are wrki-uja-cyovpor high potency antioxidant supplements with select vitamins and minerals, at levels well above those in ordinary multivitamins and generally not attainable through diet alone. You do not need a prescription. Please follow the instructions on the bottle. The AREDS 2 Formulation is made up of: 500 mg vitamin C 400 IU vitamin E 10 mg lutein 2 mg zeaxanthin 80 mg zinc 2 mg copper Why a change in the formulation between AREDS 1 and AREDS 2 vitamins? Why add lutein/zeaxanthin? Previous studies had found that dietary intake of lutein/zeaxanthin is associated with a lower risk of developing advanced AMD. Why eliminate beta-carotene? During the AREDS trial, two large trials funded by the [employer] [place] found that beta-carotene may increase lung cancer risk among people who smoke. Lutein and zeaxanthin are in the same family of nutrients as beta-carotene and are believed to have important functions in the retina. Therefore, the researchers theorized that lutein/zeaxanthin might be a safer and possibly more effective alternative than beta-carotene. Why reduce zinc? Although zinc was found to be an essential component of the AREDS formulation in the original trial, some nutritional experts recommended a lower dose. What are lutein, zeaxanthin and beta-carotene? Lutein, zeaxanthin, and beta-carotene belong to a family of nutrients known as carotenoids. Carotenoids are made by plants and are especially enriched in green leafy vegetables. They can be stored in animal tissues and are found at relatively low levels in animal food products. In the body, beta-carotene is used to make Vitamin A, which is required by the retina to detect light and convert it into electrical signals. Beta-carotene itself is not found in the eye. In contrast, lutein and zeaxanthin are found in the retina and lens, where they may act as natural antioxidants and help absorb damaging, high-energy blue and ultraviolet light. What were the effects of changing the original AREDS formulation? In the first AREDS trial, taking the original formulation reduced the risk of advanced AMD by about 25 percent over a five-year period. In the AREDS2 trial, adding DHA/EPA or lutein/zeaxanthin to the original formulation (containing beta-carotene) had no additional overall effect on the risk of advanced AMD. However, trial participants who took AREDS containing lutein/zeaxanthin and no beta-carotene had a slight reduction in risk of advanced AMD, compared with those who took AREDS with beta-carotene. Also, for participants with very low levels of lutein/zeaxanthin in their diet, adding these supplements to the AREDS formulation helped lower their risk of advanced AMD. Finally, former smokers who took AREDS with beta-carotene had a higher incidence of lung cancer. The investigators found no significant changes in the effectiveness of the formulation when they removed beta-carotene or lowered zinc. Who should consider taking a combination of antioxidants and zinc like those examined in AREDS and AREDS2? People at high risk for developing advanced AMD should consider taking the antioxidant-zinc combinations examined in AREDS and AREDS2. These people are defined as having either: Intermediate AMD in one or both eyes. Intermediate AMD can be detected by an legal services professional, but usually involves little or no vision loss. Advanced AMD in one eye, but not the other eye. Advanced AMD involves either a breakdown of cells in the retina (called geographic atrophy or dry AMD), or the growth of abnormal blood vessels under the retina (called neovascular or wet AMD). Either of these forms of advanced AMD can cause vision loss. Will taking an AREDS formulation prevent AMD? There is no known treatment that can prevent the early stages of AMD. However, the AREDS formulations may delay progression of advanced AMD and help you keep your vision longer if you have intermediate AMD, or advanced AMD in one eye. The participants in the first AREDS trial have now been followed for 10 years, and the benefits of the AREDS formulation have persisted over this time. Can I take a daily multivitamin if I am taking one of the AREDS formulations? Yes. The AREDS formulation is not a substitute for a multivitamin. In the AREDS trial, two-thirds of the study participants took multivitamins along with the AREDS formulation. In AREDS2, almost nine of ten participants took multivitamins. Can a daily multivitamin alone provide the same vision benefits as an AREDS formulation? No. The vitamins and minerals tested in the AREDS and AREDS2 trials were provided in much higher doses than what is found in multivitamins. Also, it is important to remember that most of the trial participants took multivitamins. Taking an AREDS formulation clearly provided a benefit over and above multivitamins. Can diet alone provide the same high levels of antioxidants and zinc as the AREDS formulations? No. The high levels of vitamins and minerals are difficult to achieve from diet alone. However, previous studies have suggested that people who have diets rich in green, leafy vegetables--a good source of lutein/zeaxanthin--have a lower risk of developing AMD. In the AREDS2 trial, the people who seemed to benefit most from taking lutein/zeaxanthin were those who did not get much of these nutrients in their diet. Within this group, those who received lutein/zeaxanthin supplements had a 26 percent reduced risk of developing advanced AMD compared with those who did not receive the supplements. What is the risk of lung cancer from taking beta-carotene? In the AREDS2 trial, current smokers or those who had quit smoking less than a year before enrollment were excluded from receiving beta-carotene. Despite this precaution, lung cancers were observed in 2 percent of participants who took an AREDS formulation with beta-carotene, compared with 0.9 percent of participants who took AREDS without beta-carotene. Across both groups, about 91 percent of participants who developed lung cancer were former smokers. How does lutein/zeaxanthin compare to beta-carotene? Lutein/zeaxanthin has not been associated with increased cancer risk. Moreover, analysis from the AREDS2 trial suggests that it offers similar or better protective benefits against advanced AMD, compared with beta-carotene. In the trial, participants who took an AREDS formulation containing lutein/zeaxanthin (no beta-carotene) had an 18 percent lower risk of progressing to advanced AMD compared with those who took AREDS containing beta-carotene (no lutein/zeaxanthin). Does the high-dose vitamin E in the AREDS formulations affect the risk of prostate cancer? There have been conflicting data on the relationship between vitamin E and prostate cancer. In 1993, the Alpha-Tocopherol, Beta Carotene (ATBC) trial found a 35 percent reduced risk of prostate cancer in men taking 50 mg of vitamin E daily for a follow-up of six years. In 2008, the Physicians Health Study II (PHS II) found that 400 IU of vitamin E every other day for a follow-up of eight years had no effect on the incidence of prostate cancer. In 2010, the Selenium and Vitamin E Cancer Prevention Trial (SELECT) found a 17 percent increase in the risk of prostate cancer among men taking 400 IU of vitamin E daily for a follow-up of seven years. That risk equates to 1-2 more prostate cancers per 1000 patients who took high-dose vitamin E for one year. For reasons that are unclear, men who took both vitamin E and selenium did not have an increased rate of prostate cancer. In the AREDS trial, high-dose vitamin E had no effect on the risk of prostate cancer among male participants. The AREDS2 trial began in 2005 (before the SELECT trial was reported) and all study participants were offered an AREDS formulation containing vitamin E. A group of independent researchers monitoring the AREDS2 trial for safety noted no concerns about an increased risk prostate cancer. The final data from the study do not suggest a higher rate of prostate cancer among male participants than expected in an aging male population. If you have concerns about vitamin E and prostate cancer talk to your health care provider about the possible risks and benefits from taking vitamin E supplements. Are there any other side effects or risks from taking the AREDS formulations? Many older Americans take prescription medications, and a considerable number use tpji-qav-iigtzno drugs, dietary supplements, and herbal medicines. High-dose supplemental nutrients can sometimes interfere with medications and compete with other vital nutrients for absorption into the body. Individuals who are considering taking an AREDS formulation should discuss this with their primary care doctors and/or eye hearing care practitioner. AMSLER GRID: While wearing your reading glasses, hold the grid at a normal reading distance. With one eye covered, look at the black dot in the center of grid. Note any lines that are wavy, broken or missing. Repeat for the other eye and report any changes to Dr. Donovan at [phone] documented in this encounter [facility] 10-04-2023 History of Presen t illness Narrative Referred by Dr. Trinidad for diabetic retinopathy eval (also saw Dr. Daniels) Patient started noticing changes in vision right eye about 1 year ago, it has been gradual 1. INSULIN DEPENDENT type 2 diabetes -Recommend good blood pressure/sugar control -A1C reported 5.6 Hemoglobin A1C (%) Date Value 04/06/2008 6.2 -on dialysis: No Non-Proliferative Diabetic Retinopathy Mild/Mod right eye -history of Panretinal laser photocoagulation (PRP): No -history of injections: No Non-Proliferative Diabetic Retinopathy Mild left eye -history of Panretinal laser photocoagulation (PRP): No -history of injections: No 2. advanced nonexudative Age related macular degeneration Both eyes -history of smoking N -history of plaquenil: No -history of pentosan: No -rec AREDs 2 vitamins/amsler grid monitoring -discussed syvofre/izervay but do not recommend starting treatment 3. Posterior vitreous detachment (PVD) left eye -Retinal detachment precautions reviewed 4. posterior chamber intraocular lens (PCIOL) both eyes -done in 2012 -stable Plan: Rec observation Return in 6 mo for full exam I have confirmed and edited as necessary the relevant HPI, ophthalmic history, ROS, and the neuro exam findings as obtained by others. I have seen and examined Allie Murillo. I have discussed the case and the management of this patient's care with the Resident/Fellow, if applicable. I also have reviewed and agree with the assessment and plan as stated above and agree with all of its relevant components. Nancy Donovan MD documented in this encounter [facility] 10-04-2023 Note HNO ID: [id number] Author: NANCY DONOVAN MD, PhD Service: ? Author Type: Physician Type: Progress Notes Filed: 10/04/2023 12:43 Note Text: Referred by Dr. Trinidad for diabetic retinopathy eval (also saw Dr. Daniels) Patient started noticing changes in vision right eye about 1 year ago, it has been gradual 1. INSULIN DEPENDENT type 2 diabetes -Recommend good blood pressure/sugar control -A1C reported 5.6 Hemoglobin A1C (%) Date Value 04/06/2008 6.2 -on dialysis: No Non-Proliferative Diabetic Retinopathy Mild/Mod right eye -history of Panretinal laser photocoagulation (PRP): No -history of injections: No Non-Proliferative Diabetic Retinopathy Mild left eye -history of Panretinal laser photocoagulation (PRP): No -history of injections: No 2. advanced nonexudative Age related macular degeneration Both eyes -history of smoking N -history of plaquenil: No -history of pentosan: No -rec AREDs 2 vitamins/amsler grid monitoring -discussed syvofre/izervay but do not recommend starting treatment 3. Posterior vitreous detachment (PVD) left eye -Retinal detachment precautions reviewed 4. posterior chamber intraocular lens (PCIOL) both eyes -done in 2012 -stable Plan: Rec observation Return in 6 mo for full exam I have confirmed and edited as necessary the relevant HPI, ophthalmic history, ROS, and the neuro exam findings as obtained by others. I have seen and examined Allie Murillo. I have discussed the case and the management of this patient's care with the Resident/Fellow, if applicable. I also have reviewed and agree with the assessment and plan as stated above and agree with all of its relevant components. Nancy Donovan MD [facility] 07-18-2023 Note CURB HOP-D REMOTE EVALUAT ION: Processed 07/18/23. PRESENTING EGM: AP-/BIVP BATTERY STATUS: Estimated time remaining to DB is 8 years. COUNTERS SINCE: 05/19/20(remote 03/15/23). ATRIAL ARRHYTHMIAS: There have been 1 triggered episodes of atrial high rates with EGMs showing AT. Longest lasting 1 second. Total time <1%. Anticoagulants listed: ASA. VENTRICULAR ARRHYTHMIAS: There have been no ventricular detections. LEAD MEASUREMENTS: Sensing is appropriate. Review of the lead impedance trends are normal. OTHER DIAGNOSTICS: RA pacing 19%. BIV pacing 100%. FOLLOW UP: Continue 3 month remote transmissions and yearly in-clinic interrogations. Mac Youngblood RN NOTE TO PROVIDERS: CARD Flowsheets contain detailed device programming and testing data. Paceart/Interrogation PDF can be found under CARDIAC DATA AND REPORT, Scanned Documents section. 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 Patient given direct line if she changes her mind [employer] 09/06/2022 Colon ly documented in this encounter [facility] 06-19-2022 Miscellaneous Notes Called to go over checklist with patient for screening colonoscopy. Has an implanted defibrillator & needs to go to hospital setting. documented in this encounter [facility] 04-10-2008 History of Past i llness Narrative Problem Noted Date Resolved Date debilitation 04/10/2008 07/15/2008 Overview: 04/10/2008 PT / OT consulted, OOB with lift team Pneumonia, organism unspecified(486) 04/08/2008 06/01/2008 Overview: 04/10/2008 Cont abx, ID following 04/09/2008 Continue Abx 04/08/2008, GPC in BAL speciman on 04/05. Patient on pip/tazo and vanco. Sepsis, unspecified 04/05/2008 06/01/2008 Overview: 04/09 - 04/10 Leukocytosis improving. 04/07/2008 Defervesced promptly after line removal (? Line sepsis). Blood cultures NTD. Many GPC's from tracheal aspirate. However oxygenation OK, CxR with left basilar atelectasis and pleural effusion. . Moderate amt of whitish secretions. Plan CT head/chest/abd/pelvis per ID. Will continue current antibiotics. 04/06/2008 Fever up to 39.1noted yesterday in the PM, leukocytosis. Of note the patient has been in hospital for some time, critically ill with Intravenous lines and catheters, intrmittently intubated so she is at risk for NEVES infections. Pancultured yesterday. Sternal incision clean, lungs CTA. Minimal secretions from ETT. Good oxygenation. No new infiltrates on CxR. Urine clean. C/S NTD. Had old lines 03/25/03/26 which were removed yesterday with the exception of transvenous PM wire. Has new lines. I Will start zosyn, vancomycin, follow clinical picture and adjust antibiotic spectrum according to cultures. Transvenous temporary pacing wire to be d/c'ed today by card Malnutrition of moderate degree 04/02/2008 07/15/2008 Overview: 04/09 -04/10 TF at goal 04/07/2008 Tube feeds started over the weekent. On hold for now for the procedures. Will restart thereafter. AGITATION/DELIRIUM 04/02/2008 04/10/2008 Overview: 04/09/2008 Off sedation. No agitation noted 04/07/2008 On sedation. Per reports she is following commands, and is nonfocal. Sedation due to ongoing Procedures/surgical plans. 04/06/2008 Unclear if resulting from CHF or the other way around. Now fever/infection may play a role. No progress over the weekend. Ongoing plans for device. For now will continue propofol (titrate to POLO 3), fentanyl PRN haldol. Acute respiratory failure 04/01/20082008 Overview: 04/10/2008 Continues to improve. 04/09/2008 Extubated. Minimal O2 support. EZ- PAP 04/07/2008 Reintubated 04/02 per reports. due to cardiac insufficiency. Today CTA, moderate whitish secretions. Good gas exchange. Cxr : Lt basilar atelectasis, ? Pleural effusion. Still sedated due to ongoing CT plans/surgical plans VAD. For now will hold off weaning since ongoing OR plans. INTERMITTENT COMPLETE HEART BLOCK 03/25/2008 07/15/2008 Overview: 04/09 - 04/10 SR, on Amio 04/07/2008 No episodes of block noted. Currently on amiodarone for atrial fibrillation, which I will decrease. Transvenous temporary wire d/c'ed by EP. documented as of this encounter (statuses as of 06/16/2021) [facility] History of Past illness Narrative* Problem Noted Date Resolved Date debilitation 04/10/2008 07/15/2008 Overview: 04/10/2008 PT / OT consulted, OOB with lift team Pneumonia, organism unspecified(486) 04/08/2008 06/01/2008 Overview: 04/10/2008 Cont abx, ID following 04/09/2008 Continue Abx 04/08/2008, GPC in BAL speciman on 04/05. Patient on pip/tazo and vanco. Sepsis, unspecified 04/05/2008 06/01/2008 Overview: 04/09 - 04/10 Leukocytosis improving. 04/07/2008 Defervesced promptly after line removal (? Line sepsis). Blood cultures NTD. Many GPC's from tracheal aspirate. However oxygenation OK, CxR with left basilar atelectasis and pleural effusion. . Moderate amt of whitish secretions. Plan CT head/chest/abd/pelvis per ID. Will continue current antibiotics. 04/06/2008 Fever up to 39.1noted yesterday in the PM, leukocytosis. Of note the patient has been in hospital for some time, critically ill with Intravenous lines and catheters, intrmittently intubated so she is at risk for NEVES infections. Pancultured yesterday. Sternal incision clean, lungs CTA. Minimal secretions from ETT. Good oxygenation. No new infiltrates on CxR. Urine clean. C/S NTD. Had old lines 03/26 which were removed yesterday with the exception of transvenous PM wire. Has new lines. I Will start zosyn, vancomycin, follow clinical picture and adjust antibiotic spectrum according to cultures. Transvenous temporary pacing wire to be d/c'ed today by card Malnutrition of moderate degree 04/02/2008 07/15/2008 Overview: 04/09 -04/10 TF at goal 04/07/2008 Tube feeds started over the weekent. On hold for now for the procedures. Will restart thereafter. AGITATION/DELIRIUM 04/02/2008 04/10/2008 Overview: 04/09/2008 Off sedation. No agitation noted 04/07/2008 On sedation. Per reports she is following commands, and is nonfocal. Sedation due to ongoing Procedures/surgical plans. 04/06/2008 Unclear if resulting from CHF or the other way around. Now fever/infection may play a role. No progress over the weekend. Ongoing plans for device. For now will continue propofol (titrate to POLO 3), fentanyl PRN haldol. Acute respiratory failure 04/01/20082008 Overview: 04/10/2008 Continues to improve. 04/09/2008 Extubated. Minimal O2 support. EZ- PAP 04/07/2008 Reintubated 04/02 per reports. due to cardiac insufficiency. Today CTA, moderate whitish secretions. Good gas exchange. Cxr : Lt basilar atelectasis, ? Pleural effusion. Still sedated due to ongoing CT plans/surgical plans VAD. For now will hold off weaning since ongoing OR plans. INTERMITTENT COMPLETE HEART BLOCK 03/25/2008 07/15/2008 Overview: 04/09 - 04/10 SR, on Amio 04/07/2008 No episodes of block noted. Currently on amiodarone for atrial fibrillation, which I will decrease. Transvenous temporary wire d/c'ed by EP. documented as of this encounter (statuses as of 09/15/2021) [facility] History of Past illness Narrative* Problem Noted Date Resolved Date debilitation 04/10/2008 07/15/2008 Overview: 04/10/2008 PT / OT consulted, OOB with lift team Pneumonia, organism unspecified(486) 04/08/2008 06/01/2008 Overview: 04/10/2008 Cont abx, ID following 04/09/2008 Continue Abx 04/08/2008, GPC in BAL speciman on 04/05. Patient on pip/tazo and vanco. Sepsis, unspecified 04/05/2008 06/01/2008 Overview: 04/09 - 04/10 Leukocytosis improving. 04/07/2008 Defervesced promptly after line removal (? Line sepsis). Blood cultures NTD. Many GPC's from tracheal aspirate. However oxygenation OK, CxR with left basilar atelectasis and pleural effusion. . Moderate amt of whitish secretions. Plan CT head/chest/abd/pelvis per ID. Will continue current antibiotics. 04/06/2008 Fever up to 39.1noted yesterday in the PM, leukocytosis. Of note the patient has been in hospital for some time, critically ill with Intravenous lines and catheters, intrmittently intubated so she is at risk for NEVES infections. Pancultured yesterday. Sternal incision clean, lungs CTA. Minimal secretions from ETT. Good oxygenation. No new infiltrates on CxR. Urine clean. C/S NTD. Had old lines 03/25/03/26 which were removed yesterday with the exception of transvenous PM wire. Has new lines. I Will start zosyn, vancomycin, follow clinical picture and adjust antibiotic spectrum according to cultures. Transvenous temporary pacing wire to be d/c'ed today by card Malnutrition of moderate degree 04/02/2008 07/15/2008 Overview: 04/09 -04/10 TF at goal 04/07/2008 Tube feeds started over the weekent. On hold for now for the procedures. Will restart thereafter. AGITATION/DELIRIUM 04/02/2008 04/10/2008 Overview: 04/09/2008 Off sedation. No agitation noted 04/07/2008 On sedation. Per reports she is following commands, and is nonfocal. Sedation due to ongoing Procedures/surgical plans. 04/06/2008 Unclear if resulting from CHF or the other way around. Now fever/infection may play a role. No progress over the weekend. Ongoing plans for device. For now will continue propofol (titrate to POLO 3), fentanyl PRN haldol. Acute respiratory failure 04/01/20082008 Overview: 04/10/2008 Continues to improve. 04/09/2008 Extubated. Minimal O2 support. EZ- PAP 04/07/2008 Reintubated 04/02 per reports. due to cardiac insufficiency. Today CTA, moderate whitish secretions. Good gas exchange. Cxr : Lt basilar atelectasis, ? Pleural effusion. Still sedated due to ongoing CT plans/surgical plans VAD. For now will hold off weaning since ongoing OR plans. INTERMITTENT COMPLETE HEART BLOCK 03/25/2008 07/15/2008 Overview: 04/09 - 04/10 SR, on Amio 04/07/2008 No episodes of block noted. Currently on amiodarone for atrial fibrillation, which I will decrease. Transvenous temporary wire d/c'ed by EP. documented as of this encounter (statuses as of 03/16/2022) [facility] History of Past illness Narrative* Problem Noted Date Resolved Date debilitation 04/10/2008 07/15/2008 Overview: 04/10/2008 PT / OT consulted, OOB with lift team Pneumonia, organism unspecified(486) 04/08/2008 06/01/2008 Overview: 04/10/2008 Cont abx, ID following 04/09/2008 Continue Abx 04/08/2008, GPC in BAL speciman on 04/05. Patient on pip/tazo and vanco. Sepsis, unspecified 04/05/2008 06/01/2008 Overview: 04/09 - 04/10 Leukocytosis improving. 04/07/2008 Defervesced promptly after line removal (? Line sepsis). Blood cultures NTD. Many GPC's from tracheal aspirate. However oxygenation OK, CxR with left basilar atelectasis and pleural effusion. . Moderate amt of whitish secretions. Plan CT head/chest/abd/pelvis per ID. Will continue current antibiotics. 04/06/2008 Fever up to 39.1noted yesterday in the PM, leukocytosis. Of note the patient has been in hospital for some time, critically ill with Intravenous lines and catheters, intrmittently intubated so she is at risk for NEVES infections. Pancultured yesterday. Sternal incision clean, lungs CTA. Minimal secretions from ETT. Good oxygenation. No new infiltrates on CxR. Urine clean. C/S NTD. Had old lines 03/25/03/26 which were removed yesterday with the exception of transvenous PM wire. Has new lines. I Will start zosyn, vancomycin, follow clinical picture and adjust antibiotic spectrum according to cultures. Transvenous temporary pacing wire to be d/c'ed today by card Malnutrition of moderate degree 04/02/2008 07/15/2008 Overview: 04/09 -04/10 TF at goal 04/07/2008 Tube feeds started over the weekent. On hold for now for the procedures. Will restart thereafter. AGITATION/DELIRIUM 04/02/2008 04/10/2008 Overview: 04/09/2008 Off sedation. No agitation noted 04/07/2008 On sedation. Per reports she is following commands, and is nonfocal. Sedation due to ongoing Procedures/surgical plans. 04/06/2008 Unclear if resulting from CHF or the other way around. Now fever/infection may play a role. No progress over the weekend. Ongoing plans for device. For now will continue propofol (titrate to POLO 3), fentanyl PRN haldol. Acute respiratory failure 04/01/20082008 Overview: 04/10/2008 Continues to improve. 04/09/2008 Extubated. Minimal O2 support. EZ- PAP 04/07/2008 Reintubated 04/02 per reports. due to cardiac insufficiency. Today CTA, moderate whitish secretions. Good gas exchange. Cxr : Lt basilar atelectasis, ? Pleural effusion. Still sedated due to ongoing CT plans/surgical plans VAD. For now will hold off weaning since ongoing OR plans. INTERMITTENT COMPLETE HEART BLOCK 03/25/2008 07/15/2008 Overview: 04/09 - 04/10 SR, on Amio 04/07/2008 No episodes of block noted. Currently on amiodarone for atrial fibrillation, which I will decrease. Transvenous temporary wire d/c'ed by EP. documented as of this encounter (statuses as of 06/17/2022) [facility] History of Past illness Narrative* Problem Noted Date Resolved Date debilitation 04/10/2008 07/15/2008 Overview: 04/10/2008 PT / OT consulted, OOB with lift team Pneumonia, organism unspecified([id number]) 04/08/2008 06/01/2008 Overview: 04/10/2008 Cont abx, ID following 04/09/2008 Continue Abx 04/08/2008, GPC in BAL speciman on 04/05. Patient on pip/tazo and vanco. Sepsis, unspecified 04/05/2008 06/01/2008 Overview: 04/09 - 04/10 Leukocytosis improving. 04/07/2008 Defervesced promptly after line removal (? Line sepsis). Blood cultures NTD. Many GPC's from tracheal aspirate. However oxygenation OK, CxR with left basilar atelectasis and pleural effusion. . Moderate amt of whitish secretions. Plan CT head/chest/abd/pelvis per ID. Will continue current antibiotics. 04/06/2008 Fever up to 39.1noted yesterday in the PM, leukocytosis. Of note the patient has been in hospital for some time, critically ill with Intravenous lines and catheters, intrmittently intubated so she is at risk for NEVES infections. Pancultured yesterday. Sternal incision clean, lungs CTA. Minimal secretions from ETT. Good oxygenation. No new infiltrates on CxR. Urine clean. C/S NTD. Had old lines 03/25/03/26 which were removed yesterday with the exception of transvenous PM wire. Has new lines. I Will start zosyn, vancomycin, follow clinical picture and adjust antibiotic spectrum according to cultures. Transvenous temporary pacing wire to be d/c'ed today by card Malnutrition of moderate degree 04/02/2008 07/15/2008 Overview: 04/09 -04/10 TF at goal 04/07/2008 Tube feeds started over the weekent. On hold for now for the procedures. Will restart thereafter. AGITATION/DELIRIUM 04/02/2008 04/10/2008 Overview: 04/09/2008 Off sedation. No agitation noted 04/07/2008 On sedation. Per reports she is following commands, and is nonfocal. Sedation due to ongoing Procedures/surgical plans. 04/06/2008 Unclear if resulting from CHF or the other way around. Now fever/infection may play a role. No progress over the weekend. Ongoing plans for device. For now will continue propofol (titrate to POLO 3), fentanyl PRN haldol. Acute respiratory failure 04/01/20082008 Overview: 04/10/2008 Continues to improve. 04/09/2008 Extubated. Minimal O2 support. EZ- PAP 04/07/2008 Reintubated 04/02 per reports. due to cardiac insufficiency. Today CTA, moderate whitish secretions. Good gas exchange. Cxr : Lt basilar atelectasis, ? Pleural effusion. Still sedated due to ongoing CT plans/surgical plans VAD. For now will hold off weaning since ongoing OR plans. INTERMITTENT COMPLETE HEART BLOCK 03/25/2008 07/15/2008 Overview: 04/09 SR, on Amio 04/07/2008 No episodes of block noted. Currently on amiodarone for atrial fibrillation, which I will decrease. Transvenous temporary wire d/c'ed by EP. documented as of this encounter (statuses as of 06/19/2022) [facility]02-06-2009 History of Past illness Narrative* Problem Noted Date Resolved Date debilitation 04/10/2008 07/15/2008 Overview: 04/10/2008 PT / OT consulted, OOB with lift team Pneumonia, organism unspecified(486) 04/08/2008 06/01/2008 Overview: 04/10/2008 Cont abx, ID following 04/09/2008 Continue Abx 04/08/2008, GPC in BAL speciman on 04/05. Patient on pip/tazo and vanco. Sepsis, unspecified 04/05/2008 06/01/2008 Overview: 04/09 - 04/10 Leukocytosis improving. 04/07/2008 Defervesced promptly after line removal (? Line sepsis). Blood cultures NTD. Many GPC's from tracheal aspirate. However oxygenation OK, CxR with left basilar atelectasis and pleural effusion. . Moderate amt of whitish secretions. Plan CT head/chest/abd/pelvis per ID. Will continue current antibiotics. 04/06/2008 Fever up to 39.1noted yesterday in the PM, leukocytosis. Of note the patient has been in hospital for some time, critically ill with Intravenous lines and catheters, intrmittently intubated so she is at risk for NEVES infections. Pancultured yesterday. Sternal incision clean, lungs CTA. Minimal secretions from ETT. Good oxygenation. No new infiltrates on CxR. Urine clean. C/S NTD. Had old lines 03/25/03/26 which were removed yesterday with the exception of transvenous PM wire. Has new lines. I Will start zosyn, vancomycin, follow clinical picture and adjust antibiotic spectrum according to cultures. Transvenous temporary pacing wire to be d/c'ed today by card Malnutrition of moderate degree 04/02/2008 07/15/2008 Overview: 04/09 -04/10 TF at goal 04/07/2008 Tube feeds started over the weekent. On hold for now for the procedures. Will restart thereafter. AGITATION/DELIRIUM 04/02/2008 04/10/2008 Overview: 04/09/2008 Off sedation. No agitation noted 04/07/2008 On sedation. Per reports she is following commands, and is nonfocal. Sedation due to ongoing Procedures/surgical plans. 04/06/2008 Unclear if resulting from CHF or the other way around. Now fever/infection may play a role. No progress over the weekend. Ongoing plans for device. For now will continue propofol (titrate to POLO 3), fentanyl PRN haldol. Acute respiratory failure 04/01/20082008 Overview: 04/10/2008 Continues to improve. 04/09/2008 Extubated. Minimal O2 support. EZ- PAP 04/07/2008 Reintubated 04/02 per reports. due to cardiac insufficiency. Today CTA, moderate whitish secretions. Good gas exchange. Cxr : Lt basilar atelectasis, ? Pleural effusion. Still sedated due to ongoing CT plans/surgical plans VAD. For now will hold off weaning since ongoing OR plans. INTERMITTENT COMPLETE HEART BLOCK 03/25/2008 07/15/2008 Overview: 04/09 - 04/10 SR, on Amio 04/07/2008 No episodes of block noted. Currently on amiodarone for atrial fibrillation, which I will decrease. Transvenous temporary wire d/c'ed by EP. documented as of this encounter (statuses as of 07/06/2022) [facility]02-06-2009 History of Past illness Narrative* Problem Noted Date Diagnosed Date Resolved Date debilitation 04/10/2008 07/15/2008 Overview: 04/10/2008 PT / OT consulted, OOB with lift team Pneumonia, organism unspecified(486) 04/08/2008 06/01/2008 Overview: 04/10/2008 Cont abx, ID following 04/09/2008 Continue Abx 04/08/2008, GPC in BAL speciman on 04/05. Patient on pip/tazo and vanco. Sepsis, unspecified 04/05/2008 06/02/19 09 Overview: 04/09 - 04/10 Leukocytosis improving. 04/07/2008 Defervesced promptly after line removal (? Line sepsis). Blood cultures NTD. Many GPC's from tracheal aspirate. However oxygenation OK, CxR with left basilar atelectasis and pleural effusion. . Moderate amt of whitish secretions. Plan CT head/chest/abd/pelvis per ID. Will continue current antibiotics. 04/06/2008 Fever up to 39.1noted yesterday in the PM, leukocytosis. Of note the patient has been in hospital for some time, critically ill with Intravenous lines and catheters, intrmittently intubated so she is at risk for NEVES infections. Pancultured yesterday. Sternal incision clean, lungs CTA. Minimal secretions from ETT. Good oxygenation. No new infiltrates on CxR. Urine clean. C/S NTD. Had old lines 03/25/03/26 which were removed yesterday with the exception of transvenous PM wire. Has new lines. I Will start zosyn, vancomycin, follow clinical picture and adjust antibiotic spectrum according to cultures. Transvenous temporary pacing wire to be d/c'ed today by card Malnutrition of moderate degree 04/02/2008 07/15/2008 Overview: 04/09 TF at goal 04/07/2008 Tube feeds started over the weekent. On hold for now for the procedures. Will restart thereafter. AGITATION/DELIRIUM 04/02/2008 02/ 9 Overview: 04/09/2008 Off sedation. No agitation noted 04/07/2008 On sedation. Per reports she is following commands, and is nonfocal. Sedation due to ongoing Procedures/surgical plans. 04/06/2008 Unclear if resulting from CHF or the other way around. Now fever/infection may play a role. No progress over the weekend. Ongoing plans for device. For now will continue propofol (titrate to POLO 3), fentanyl PRN haldol. Acute respiratory failure 04/01/2008 Overview: 04/10/2008 Continues to improve. 04/09/2008 Extubated. Minimal O2 support. EZ- PAP 04/07/2008 Reintubated 04/02 per reports. due to cardiac insufficiency. Today CTA, moderate whitish secretions. Good gas exchange. Cxr : Lt basilar atelectasis, ? Pleural effusion. Still sedated due to ongoing CT plans/surgical plans VAD. For now will hold off weaning since ongoing OR plans. INTERMITTENT COMPLETE HEART BLOCK 03/25/2008 07/15/2008 Overview: 04/09 - 04/10 SR, on Amio 04/07/2008 No episodes of block noted. Currently on amiodarone for atrial fibrillation, which I will decrease. Transvenous temporary wire d/c'ed by EP. documented as of this encounter (statuses as of 09/18/2022) [facility] noteNo assessment information availableWFirelands Regional Medical Center Work Phone: Evaluation note* Diagnosis History of colonic polyps- Primary Personal history of colonic polyps documented in this encounter [facility] note* Diagnosis Type 2 diabetes mellitus with both eyes affected by moderate nonproliferative retinopathy without macular edema, with long-term current use of insulin (HCC)- Primary Advanced atrophic 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 documented in this encounter [facility] note* Diagnosis Type 2 diabetes mellitus with both eyes affected by moderate nonproliferative retinopathy without macular edema, with long-term current use of insulin (HCC) Advanced atrophic 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 documented in this encounter [facility] for referral (narrative)* Outpatient Procedure (Routine) - Authorized Specialty Diagnoses / Procedures Referred By Ifrah ding Referred To Contact [facility] Diagnoses History of colonic polyps Procedures COLONOSCOPY SCREENING COLONOSCOPY FLX DX W/COLLJ SPEC WHEN PFRMD Judy Beasley PA-C [address] [place] [address] [facility] [address] [place] [id number] Referral ID Status Reason Start Date Expiration Date Visits Requested Visits Authorized [id number] Authorized Auto-Generat ed Referral 06/22/2022 06/23/2023 [facility]No reason for referral information availableWFirelands Regional Medical Center Work Phone: Advance Directives No Advanced Directives Records FoundDocuments on File Type Date Recorded Patient Science Instructor Expl anation Advance Directive(s) Advance Directive(s) 05/12/2020 12:52 PM Advance Directive(s) 08/11/2019 10:33 AM Advance Directive(s) 10/13/2017 2:36 AM Advance Directive(s) 07/15/2015 6:51 AM Summary Purpose Family History No Family History Records FoundNo Family History Records FoundNo Family History Records Found Additional Source Comments Source Comments (unrecognize d section and content) In the event this informatio n is protected by the Federal Confidentiality of Alcohol and Drug Abuse Patient Records regulations: The Federal rules restrict any use of the information to criminally investigate or prosecute any alcohol or drug abuse patient.[facility] Center[facility] the event this information is protected by the Federal Confidentiality of Alcohol and Drug Abuse Patient Records regulations: The Federal rules restrict any use of the information to criminally investigate or prosecute any alcohol or drug abuse patient.[facility] Center[facility] the event this information is protected by the Federal Confidentiality of Alcohol and Drug Abuse Patient Records regulations: The Federal rules restrict any use of the information to criminally investigate or prosecute any alcohol or drug abuse patient.[facility] CenterIn the event this information is protected by the Federal Confidentiality of Alcohol and Drug Abuse Patient Records regulations: The Federal rules restrict any use of the information to criminally investigate or prosecute any alcohol or drug abuse patient.[facility] CenterIn the event this information is protected by the Federal Confidentiality of Alcohol and Drug Abuse Patient Records regulations: The Federal rules restrict any use of the information to criminally investigate or prosecute any alcohol or drug abuse patient.[facility] CenterIn the event this information is protected by the Federal Confidentiality of Alcohol and Drug Abuse Patient Records regulations: The Federal rules restrict any use of the information to criminally investigate or prosecute any alcohol or drug abuse patient.[facility] CenterIn the event this information is protected by the Federal Confidentiality of Alcohol and Drug Abuse Patient Records regulations: The Federal rules restrict any use of the information to criminally investigate or prosecute any alcohol or drug abuse patient.[facility] CenterIn the event this information is protected by the Federal Confidentiality of Alcohol and Drug Abuse Patient Records regulations: The Federal rules restrict any use of the information to criminally investigate or prosecute any alcohol or drug abuse patient.[facility] CenterIn the event this information is protected by the Federal Confidentiality of Alcohol and Drug Abuse Patient Records regulations: The Federal rules restrict any use of the information to criminally investigate or prosecute any alcohol or drug abuse patient.[facility] CenterIn the event this information is protected by the Federal Confidentiality of Alcohol and Drug Abuse Patient Records regulations: The Federal rules restrict any use of the information to criminally investigate or prosecute any alcohol or drug abuse patient.[facility] Care Teams (unrecognized sec tion and content) Brass Roller Relationship Specialty Start Date End Date Anabella Pena [address] [place] [address] PCP - General 11/03/08 Brass Roller Relationship Specialty Start Date End Date Anabella Pena [address] [place] [phone] PCP - General 11/03/08 Brass Roller Relationship Specialty Start Date End Date Anabella Pena [address] [phone] PCP - General 11/03/08 Team Status: Active Member Role Status Dates Dr. Anabella Pena MD Family Provider Active Dr. Anabella Pena MD Primary Care Provider Active Team Status: Inactive Member Role Status Dates Dr. Anabella Pena MD Primary Care Provid er, Attending Provider, Referring Provider Active Brass Roller Relationship Specialty Start Date End Date MitaAnabella dang [address] [place] [address] PCP - General 11/03/08 Brass Roller Relationship Specialty Start Date End Date Anabella Pena [address] [place] [address] PCP - General 11/03/08 Brass Roller Relationship Specialty Start Date End Date Anabella Pena Ángel [address] [place] [address] PCP - General 11/03/08 Team Status: Inactive Member Role Status Dates Dr. Anabella Pena MD Primary Care Provider Active INDIRA ISABEL DO Attending Provider, Referring Prov ider Active Brass Roller Relationship Specialty Start Date End Date Anabella Pena Ángel [address] [address] PCP - General 11/03/08 Brass Roller Relationship Specialty Start Date End Date Anabella Pena [address] [phone] PCP - General 11/03/08 Brass Roller Relationship Specialty Start Date End Date Anabella Pena [address] [address] PCP - General 11/03/08 Team Status: Inactive Member Role Status Dates Dr. Anabella Pena MD Primary Care Provider Active Start: April 29, 2024 End: April 29, 2024 INDIRA ISABEL DO Attending Provider Active St art: April 29, 2024 End: April 29, 2024 INDIRA ISABEL DO Referring Provider Active art: April 29, 2024 End: April 29, 2024 Goals (unrecognized section and content) Goals may be documented in a n alternate sectionGoals may be documented in an alternate sectionGoals may be documented in an alternate section Reason for Visit (unrecogniz ed section and content) Reason Comments Orders Reason Comments 09/06/2022 Colon ly Reason Comments Insulin Dependent Diabetes Mellitus Carina ent states blood sugar was 95 this morning. HbA1c: 5.6 Reason Comments Nonproliferative Diabetic Retinopathy Fo llow Up Both eyes Nonexudative Macular Degeneration Follow Up INFORMATION SOURCE (unrecogn ized section and content) DATE CREATED AUTHOR 04/12/2024 [facility] DATE CREATED AUTHOR AUTHOR'S ORGANIZ ATION 05/30/2024 [facility] DATE CREATED AUTHOR AUTHOR'S ORGANIZ ATION 10/01/2024 [facility] FOR RECORDS PERTAINING TO PATIENTS WHO ARE OR HAVE BEEN ENROLLED IN A CHEMICAL DEPENDENCY/SUBSTANCEABUSE PROGRAM, SOME INFORMATION MAY BE OMITTED. This clinical summary was aggregated from multiple sources. Caution should be exercised in using it in the provision of clinical care. This summary normalizes information from multiple sources, and as a consequence, information in this document may materially change the coding, format and clinical context of patient data. In addition, data may be omitted in some cases. CLINICAL DECISIONS SHOULD BE BASED ON THE PRIMARY CLINICAL RECORDS. [facility]. provides no warranty or guarantee of the accuracy or completeness of information in this document.
--- OUTSIDE RECORDS SUMMARY | 2024-10-13 08:59 | XMS RPT_ITS | CCD ---
Author Organization [facility]ini[facility] Care Team Providers Care Microbiology Quality Control Technician Name Role Phone Anabella Pena Primary Care Provider [phone] ANABELLA PENA Primary Care Unavailable NANCY DONOVAN Referring Unavailable NANCY DONOVAN Attending Unavailable ANABELLA PENA Primary Care Unavailable SELF Referring Unavailable NANCY DONOVAN Attending Unavailable ANABELLA PENA Primary Care Unavailable AYLIN REILLY Attending Unavailable INDIRA ISABEL Primary Care Unavailable Jean ESQUEDA, Dr. Rand Primary Care Provider INDIRA ISABEL DO Attending Provider INDIRA ISABEL DO Referring Provider [phone] INDIRA ISABEL Referring Unavailable INDIRA ISABEL Attending [...] Comment on above: Take 1 capsule by [facility] once daily. insulin glargine 100 unt/ml [...] Comment on above: Take 1 tablet by [facility] twice daily. 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, [address] CBC W Auto Differential pane l (Bld)on 05-28-2024 Basophils (Bld) [#/Vol] 0.03 10*3/uL Normal <0.11 [facility] Comment on above: Order Comment: Speci men Type: BLOOD SPECIMEN Ordering Facility: [facility] Address: [address] [place] [address] Performed By: #### 5 7021-8 #### [facility] CLIA [id number] [address] [place] [address] [place] Basophils/100 WBC (Bld) 0.3 % Normal [facility] Comment on above: Order Comment: Speci men Type: BLOOD SPECIMEN Ordering Facility: [facility] Address: [address] [place] [address] Performed By: #### 5 7021-8 #### [facility] CLIA [id number] [address] [place] [address] [place] Differential cell count method Nom (Bld) Auto Normal [facility] Comment on above: Order Comment: Speci men Type: BLOOD SPECIMEN Ordering Facility: [facility] Address: [address] [place] [address] Performed By: #### 5 7021-8 #### [facility] CLIA [id number] [address] [place] [address] [place] Eosinophils (Bld) [#/Vol] 0.19 10*3/uL Normal <0.46 [facility] Comment on above: Order Comment: Speci men Type: BLOOD SPECIMEN Ordering Facility: [facility] Address: [address] [place] [address] Performed By: #### 5 7021-8 #### [facility] CLIA [id number] [address] [place] [address] [facility] [place] Eosinophils/100 WBC (Bld) 1.6 % Normal [facility] Comment on above: Order Comment: Speci men Type: BLOOD SPECIMEN Ordering Facility: [facility] Address: [address] [place] [address] Performed By: #### 5 7021-8 #### [facility] CLIA [id number] [address] [place] [address] [facility] [place] Erythrocyte distribution width (RBC) [Ratio] 12.9 % Normal 11.5-15.0 [facility] Comment on above: Order Comment: Speci men Type: BLOOD SPECIMEN Ordering Facility: [facility] Address: [address] [place] [address] Performed By: #### 5 7021-8 #### [facility] CLIA [id number] [address] [place] [address] [place] Hematocrit (Bld) [Volume fraction] 39.1 % Normal 36.0-46.0 [facility] Comment on above: Order Comment: Speci men Type: BLOOD SPECIMEN Ordering Facility: [facility] Address: [address] [place] [address] Performed By: #### 5 7021-8 #### [facility] CLIA [id number] [address] [place] [address] [place] Hemoglobin (Bld) [Mass/Vol] 12.5 g/dL Normal 11.5-15.5 [facility] Comment on above: Order Comment: Speci men Type: BLOOD SPECIMEN Ordering Facility: [facility] Address: [address] [place] [address] Performed By: #### 5 7021-8 #### [facility] CLIA [id number] [address] [place] [address] [place] Immature granulocytes (Bld) [#/Vol] 10*3/uL Normal <0.10 [facility] Comment on above: Order Comment: Speci men Type: BLOOD SPECIMEN Ordering Facility: [facility] Address: [address] [place] [address] Performed By: #### 5 7021-8 #### [facility] CLIA [id number] [address] [place] [address] [place] Immature granulocytes/100 WBC (Bld) 0.2 % Normal [facility] Comment on above: Order Comment: Speci men Type: BLOOD SPECIMEN Ordering Facility: [facility] Address: [address] [place] [address] Performed By: #### 5 7021-8 #### [facility] CLIA [id number] [address] [place] [address] [place] Lymphocytes (Bld) [#/Vol] 2.00 10*3/uL Normal 1.00-4.0 0 [facility] Comment on above: Order Comment: Speci men Type: BLOOD SPECIMEN Ordering Facility: [facility] Address: [address] [place] [address] Performed By: #### 5 7021-8 #### [facility] CLIA [id number] [address] [place] [address] [facility] Lymphocytes/100 WBC (Bld) 17.1 % Normal [facility] Comment on above: Order Comment: Speci men Type: BLOOD SPECIMEN Ordering Facility: [facility] Address: [address] [place] [address] Performed By: #### 5 7021-8 #### [facility] CLIA [id number] [address] [place] MCH (RBC) [Entitic mass] 32.0 pg Normal 26.0-34.0 [facility] Comment on above: Order Comment: Speci men Type: BLOOD SPECIMEN Ordering Facility: [facility] Address: [address] [place] [address] Performed By: #### 5 7021-8 #### [facility] CLIA [id number] [address] [place] MCHC (RBC) [Mass/Vol] 32.0 g/dL Normal 30.5-36.0 [facility] Comment on above: Order Comment: Speci men Type: BLOOD SPECIMEN Ordering Facility: [facility] Address: [address] [place] [address] Performed By: #### 5 7021-8 #### [facility] CLIA [id number] [address] [place] [address] [place] MCV (RBC) [Entitic vol] 100.0 fL Normal 80.0-100.0 [facility] Comment on above: Order Comment: Speci men Type: BLOOD SPECIMEN Ordering Facility: [facility] Address: [address] [place] [address] Performed By: #### 5 7021-8 #### [facility] CLIA [id number] [address] [place] [address] [place] Monocytes (Bld) [#/Vol] 0.92 10*3/uL High <0.87 [facility] Comment on above: Order Comment: Speci men Type: BLOOD SPECIMEN Ordering Facility: [facility] Address: [address] [place] [address] Performed By: #### 5 7021-8 #### [facility] CLIA [id number] [address] [place] [address] [place] Monocytes/100 WBC (Bld) 7.9 % Normal A [facility] Comment on above: Order Comment: Speci men Type: BLOOD SPECIMEN Ordering Facility: [facility] Address: [address] [place] [address] Performed By: #### 5 7021-8 #### [facility] CLIA [id number] [address] [place] [address] [place] Neutrophils (Bld) [#/Vol] 8.53 10*3/uL High 1.45-7.5 0 [facility] Comment on above: Order Comment: Speci men Type: BLOOD SPECIMEN Ordering Facility: [facility] Address: [address] [place] [address] Performed By: #### 5 7021-8 #### [facility] CLIA [id number] [address] [place] [address] [place] Neutrophils/100 WBC (Bld) 72.9 % Normal [facility] Comment on above: Order Comment: Speci men Type: BLOOD SPECIMEN Ordering Facility: [facility] Address: [address] [place] [address] Performed By: #### 5 7021-8 #### [facility] CLIA [id number] [address] [place] [address] [place] Nucleated RBC (Bld) [#/Vol] Normal [facility] Comment on above: Order Comment: Speci men Type: BLOOD SPECIMEN Ordering Facility: [facility] Address: [address] [place] [address] Performed By: #### 5 7021-8 #### [facility] CLIA [id number] [address] [place] [address] [place] Nucleated RBC/100 WBC (Bld) [Ratio] Normal [facility] Comment on above: Order Comment: Speci men Type: BLOOD SPECIMEN Ordering Facility: [facility] Address: [address] [place] [address] Performed By: #### 5 7021-8 #### [facility] CLIA [id number] [address] [place] [address] [place] Platelet mean volume (Bld) [Entitic vol] 11.9 fL Normal 9.0-12.7 [facility] Comment on above: Order Comment: Speci men Type: BLOOD SPECIMEN Ordering Facility: [facility] Address: [address] [place] [address] Performed By: #### 5 7021-8 #### [facility] CLIA [id number] [address] [place] [address] [place] Platelets (Bld) [#/Vol] 211 10*3/uL Normal 150-400 [facility] Comment on above: Order Comment: Speci men Type: BLOOD SPECIMEN Ordering Facility: [facility] Address: [address] [place] [address] Performed By: #### 5 7021-8 #### [facility] CLIA [id number] [address] [place] [address] [place] RBC (Bld) [#/Vol] 3.91 10*6/uL Normal 3.90-5.20 [facility] Comment on above: Order Comment: Speci men Type: BLOOD SPECIMEN Ordering Facility: [facility] Address: [address] [place] [address] Performed By: #### 5 7021-8 #### [facility] CLIA [id number] [address] [place] [address] [place] WBC (Bld) [#/Vol] 11.69 10*3/uL High 3.70-11.00 [facility] Comment on above: Order Comment: Speci men Type: BLOOD SPECIMEN Ordering Facility: [facility] Address: [address] [id number] Performed By: #### 5 7021-8 #### [facility] CLIA [id number] [address] [place] [address] [facility] Comprehensive metabolic 2000 panelon 05-28-2024 Albumin [Mass/Vol] 3.9 g/dL Normal 3.9-4.9 [facility] Comment on above: Order Comment: Speci men Type: BLOOD SPECIMEN Ordering Facility: [facility] Address: [address] [place], [place] [address] Performed By: #### 2 4323-8 #### [facility] CLIA [id number] [address] [place] [address] [place] ALP [Catalytic activity/Vol] 92 U/L Normal 34-123 [facility] Comment on above: Order Comment: Speci men Type: BLOOD SPECIMEN Ordering Facility: [facility] Address: [address] [id number] Performed By: #### 2 4323-8 #### [facility] CLIA [id number] [address] [place] [address] [facility] [place] ALT With P-5'-P [Catalytic activity/Vol] 13 U/L Normal 7-38 [facility] Comment on above: Order Comment: Speci men Type: BLOOD SPECIMEN Ordering Facility: [facility] Address: [address] [place], [place] [address] Performed By: #### 2 4323-8 #### [facility] CLIA [id number] [address] [place] [address] [place] Anion gap [Moles/Vol] 11 mmol/L Normal 8-15 [facility] Comment on above: Order Comment: Speci men Type: BLOOD SPECIMEN Ordering Facility: [facility] Address: [address] [id number] Performed By: #### 2 4323-8 #### [facility] CLIA [id number] [address] [place] [address] [place] AST With P-5'-P [Catalytic activity/Vol] 17 U/L Normal 13-35 [facility] Comment on above: Order Comment: Speci men Type: BLOOD SPECIMEN Ordering Facility: [facility] Address: [address] [place] [address] Performed By: #### 2 4323-8 #### [facility] CLIA [id number] [address] [place] [address] [place] Bilirubin [Mass/Vol] 0.2 mg/dL Normal 0.2-1.3 [facility] Comment on above: Order Comment: Speci men Type: BLOOD SPECIMEN Ordering Facility: [facility] Address: [address] [place] [address] Performed By: #### 2 4323-8 #### [facility] CLIA [id number] [address] [place] [address] [place] Calcium [Mass/Vol] 9.6 mg/dL Normal 8.5-10.2 [facility] Comment on above: Order Comment: Speci men Type: BLOOD SPECIMEN Ordering Facility: [facility] Address: [address] [place] [address] Performed By: #### 2 4323-8 #### [facility] CLIA [id number] [address] [place] [address] [place] Chloride [Moles/Vol] 100 mmol/L Normal 98-107 [facility] Comment on above: Order Comment: Speci men Type: BLOOD SPECIMEN Ordering Facility: [facility] Address: [address] [place] [address] Performed By: #### 2 4323-8 #### [facility] CLIA [id number] [address] [place] [address] [place] CO2 [Moles/Vol] 25 mmol/L Normal 22-30 [facility] Comment on above: Order Comment: Speci men Type: BLOOD SPECIMEN Ordering Facility: [facility] Address: [address] [place] [address] Performed By: #### 2 4323-8 #### [facility] CLIA [id number] [address] [place] [address] [place] Creatinine [Mass/Vol] 0.57 mg/dL Low 0.58-0.96 [facility] Comment on above: Order Comment: Garrett page Type: BLOOD SPECIMEN Ordering Facility: [facility] Address: [address] [place] [address] Performed By: #### 2 4323-8 #### [facility] CLIA [id number] [address] [place] [address] [place] Creatinine and Glomerular filtration rate.predicted panel (S/P/Bld) 93 mL/min/1.73m??? Normal >=60 [facility] Comment on above: Order Comment: Garrett page Type: BLOOD SPECIMEN Ordering Facility: [facility] Address: [address] [place] [address] Result Comment: Sabrina mated Glomerular Filtration Rate [...] GFR. Performed By: #### 2 4323-8 #### [facility] CLIA [id number] [address] [place] [address] [place] Glucose [Mass/Vol] 120 mg/dL High 74-99 [facility] Comment on above: Order Comment: Garrett page Type: BLOOD SPECIMEN Ordering Facility: [facility] Address: [address] [place] [address] Result Comment: The [place] Diabetes Association (ADA) provides guidance for cutoff [...] Standards of Medical Care in Diabetes 2016, [place] Diabetes Association. Diabetes Care. 2016.39(Suppl 1). Performed By: #### 2 4323-8 #### [facility] CLIA [id number] [address] [place] [address] [place] Potassium [Moles/Vol] 4.3 mmol/L Normal 3.7-5.1 [facility] Comment on above: Order Comment: Speci men Type: BLOOD SPECIMEN Ordering Facility: [facility] Address: [address] [place] [address] Performed By: #### 2 4323-8 #### [facility] CLIA [id number] [address] [place] [address] [place] Protein [Mass/Vol] 6.8 g/dL Normal 6.3-8.0 [facility] Comment on above: Order Comment: Speci men Type: BLOOD SPECIMEN Ordering Facility: [facility] Address: [address] [place] [address] Performed By: #### 2 4323-8 #### [facility] CLIA [id number] [address] [place] [address] [place] Sodium [Moles/Vol] 136 mmol/L Normal 136-144 [facility] Comment on above: Order Comment: Speci men Type: BLOOD SPECIMEN Ordering Facility: [facility] Address: [address] [place] [address] Performed By: #### 2 4323-8 #### [facility] CLIA [id number] [address] [place] [address] [place] Urea nitrogen [Mass/Vol] 19 mg/dL Normal 7-21 [facility] Comment on above: Order Comment: Speci men Type: BLOOD SPECIMEN Ordering Facility: [facility] Address: [address] [place] [address] Performed By: #### 2 4323-8 #### [facility] CLIA [id number] [address] [place] [address] ED NOTEon 05-28-2024 ED NOTE HNO ID: [id number] Author: RITA ARGUETA, IRMA Service: Nursing Author Type: Registered Nurse Type: ED Notes Filed: 05/28/2024 21:59 Note Text: Pt verbalizes understanding of discharge instructions. Pt assisted out of ED in wheelchair Normal [facility] ED NOTE HNO ID: [id number] Author: RITA ARGUETA, RN Service: Nursing Author Type: Registered Nurse Type: ED Notes Filed: 05/28/2024 20:48 Note Text: Food and drink given Normal [facility] ED NOTE HNO ID: [id number] Author: RITA ARGUETA, IRMA Service: Nursing Author [...] EMS said this was about 30 minutes [employer]. Two sons live with pt and they noticed pt was sluggish so they gave her juice. Then called 911 because she was unresponsive. Pt states she was talking to her son at the kitchen table then does not recall what happened after that. Normal [facility] ED PROV NOTEon 05-28-2024 ED PROV NOTE HNO ID: [id number] Author: AYLIN REILLY MD Service: Emergency Medicine [...] unspecified comp (more content not included)... Normal [facility] Hemoglobin A1con 04-30-2024 HbA1c (Bld) [Mass fraction] 6.0 % Normal <=5.6 [facility] Comment on above: Performed By: #### L 501.9985, L501.9520, L502.0250, L500.4100, L500.4050, L100.0100 #### [facility] [address] [place], [address] Lipid Profileon 04-30-2024 CHOL:HDL 2.35 Normal [facility] Comment on above: Performed By: #### L 501.9985, L501.9520, L502.0250, L500.4100, L500.4050, L100.0100 #### [facility] [address] [place], [address] Cholesterol [Mass/Vol] 144 mg/dL Normal <=200 [facility] Comment on above: Result Comment: Chol esterol level, Desirable <200 mg/dL Borderline high cholesterol 200-239 mg/dL High cholesterol >=240 mg/dL Recommendations of the NCEP Adult Treatment Panel for the following risk-cutoff thresholds for the [place] population. Performed By: #### L 501.9985, L501.9520, L502.0250, L500.4100, L500.4050, L100.0100 #### [facility] [address] [place], [address] Cholesterol in HDL [Mass/Vol] 61 mg/dL Normal [facility] Comment on above: Result Comment: Carlene onal Cholesterol Education Program (NCEP) guidelines: <40 mg/dL: Low HDL-cholesterol (major risk factor for CHD) >= 60 mg/dL: High HDL-cholesterol (negative risk factor for CHD) HDL-cholesterol is affected by a number of factors, e.g. smoking, exercise, hormones, sex and age. Performed By: #### L 501.9985, L501.9520, L502.0250, L500.4100, L500.4050, L100.0100 #### [facility] [address] [place], [address] Cholesterol in LDL [Mass/Vol] 62 mg/dL Normal [facility] Comment on above: Result Comment: Bord fptkyx=392-984 mg/dL Higher Team=378 mg/dL or greater Performed By: #### L 501.9985, L501.9520, L502.0250, L500.4100, L500.4050, L100.0100 #### [facility] [address] [place], [address] Cholesterol in VLDL [Mass/Vol] 20 mg/dL Normal 5-40 [facility] Comment on above: Performed By: #### L 501.9985, L501.9520, L502.0250, L500.4100, L500.4050, L100.0100 #### [facility] [address] [place], [address] Triglyceride [Mass/Vol] 102 mg/dL Normal [facility] Comment on above: Result Comment: The drugs N-Acetylcysteine and Metamizole may falsely depress this assay. Normal range: <150 mg/dL Borderline High: 150-199 mg/dL High: 200-499 mg/dL Very High: >500 mg/dL Performed By: #### L 501.9985, L501.9520, L502.0250, L500.4100, L500.4050, L100.0100 #### [facility] [address] [place], [address] Absolute neutrophil countOrd ered By: INDIRA ISABEL on 04-29-2024 Neutrophils (Bld) [#/Vol] 3.1 10*3/uL 2.0-7.7 [facility] Albumin DL <= 20 mg/L (U) [M ass/Vol]Ordered By: INDIRA ISABEL on 04-29-2024 Urine Random Microalbumin 28.8 mg/L NO RANGE E [facility] BUN/creatinine ratioOrdered By: INDIRA ISABEL on 04-29-2024 Urea nitrogen/Creatinine [Mass ratio] 28.5 mg/mg High 10-20 [facility] Basophil percentageOrdered B y: INDIRA ISABEL on 04-29-2024 Basophils/100 WBC (Bld) 0.4 % 0-1 [facility] Bilirubin, totalOrdered By: INDIRA ISABEL on 04-29-2024 Bilirubin [Mass/Vol] 0.30 mg/dL 0.00-1.30 [facility] CBC W/Diff, Automatedon 04-06 Absolute Lymph 1.62 X10 3/uL Normal 0.83-4.51 [facility] Comment on above: Performed By: #### L 501.9985, L100.0100, L502.0250, L500.4100, L500.4050 #### [facility] [address] [place], [address] Absolute Neut 3.1 X10 3/uL Normal 2.0-7.7 [facility] Comment on above: Performed By: #### L 501.9985, L100.0100, L502.0250, L500.4100, L500.4050 #### [facility] [address] [place], [address] Basophils/100 WBC (Bld) 0.4 % Normal 0-1 [facility] Comment on above: Performed By: #### L 501.9985, L100.0100, L502.0250, L500.4100, L500.4050 #### [facility] [address] [place], [address] Eosinophils/100 WBC (Bld) 3.7 % Normal 0-5 [facility] Comment on above: Performed By: #### L 501.9985, L100.0100, L502.0250, L500.4100, L500.4050 #### [facility] [address] [place], [address] Erythrocyte distribution width (RBC) [Ratio] 13.1 % Normal 11.6-14.6 [facility] Comment on above: Performed By: #### L 501.9985, L100.0100, L502.0250, L500.4100, L500.4050 #### [facility] [address] [place], [address] Hematocrit (Bld) [Volume fraction] 41.7 % Normal 37-47 [facility] Comment on above: Performed By: #### L 501.9985, L100.0100, L502.0250, L500.4100, L500.4050 #### [facility] [address] [place], [address] Hemoglobin (Bld) [Mass/Vol] 12.6 g/dL Normal 12.0-15.0 [facility] Comment on above: Performed By: #### L 501.9985, L100.0100, L502.0250, L500.4100, L500.4050 #### [facility] [address] [place], [address] IG% 0.600 Normal 0.0-0.9 [facility] Comment on above: Result Comment: IG% - Immature Granulocytes (promyelocytes, myelocytes and metamyelocytes) > 1% indicates that a LEFT SHIFT is Present. Performed By: #### L 501.9985, L100.0100, L502.0250, L500.4100, L500.4050 #### [facility] [address] [place], [address] Lymphocytes/100 WBC (Bld) 29.9 % Normal 19-41 [facility] Comment on above: Performed By: #### L 501.9985, L100.0100, L502.0250, L500.4100, L500.4050 #### [facility] [address] [place], [address] MCH (RBC) [Entitic mass] 31.0 pg Normal 27.0-32.0 [facility] Comment on above: Performed By: #### L 501.9985, L100.0100, L502.0250, L500.4100, L500.4050 #### [facility] [address] [place], [address] MCHC (RBC) [Mass/Vol] 30.2 g/dL Low 32-36 [facility] Comment on above: Performed By: #### L 501.9985, L100.0100, L502.0250, L500.4100, L500.4050 #### [facility] [address] [place], [address] MCV (RBC) [Entitic vol] 102.7 fL High 81-99 [facility] Comment on above: Performed By: #### L 501.9985, L100.0100, L502.0250, L500.4100, L500.4050 #### [facility] [address] [place], [address] Monocytes/100 WBC (Bld) 8.5 % Normal 0-10 [facility] Comment on above: Performed By: #### L 501.9985, L100.0100, L502.0250, L500.4100, L500.4050 #### [facility] [address] [place], [address] Neutrophils/100 WBC (Bld) 56.9 % Normal 47-70 [facility] Comment on above: Performed By: #### L 501.9985, L100.0100, L502.0250, L500.4100, L500.4050 #### [facility] [address] [place], [address] Nucleated RBC (Bld) [#/Vol] 0 10*3/uL Normal 0-5 [facility] Comment on above: Performed By: #### L 501.9985, L100.0100, L502.0250, L500.4100, L500.4050 #### [facility] [address] [place], [address] Platelet mean volume (Bld) [Entitic vol] 11.5 fL Normal 6.2-12.0 [facility] Comment on above: Performed By: #### L 501.9985, L100.0100, L502.0250, L500.4100, L500.4050 #### [facility] [address] [place], [address] Platelets (Bld) [#/Vol] 190 10*3/uL Normal 150-450 [facility] Comment on above: Performed By: #### L 501.9985, L100.0100, L502.0250, L500.4100, L500.4050 #### [facility] [address] [place], [address] RBC (Bld) [#/Vol] 4.06 10*6/uL Low 4.2-5.4 [facility] Comment on above: Performed By: #### L 501.9985, L100.0100, L502.0250, L500.4100, L500.4050 #### [facility] [address] [place], [address] RDW SD 49.6 fl High 35.1-43.9 [facility] Comment on above: Performed By: #### L 501.9985, L100.0100, L502.0250, L500.4100, L500.4050 #### [facility] [address] [place], [address] WBC (Bld) [#/Vol] 5.4 10*3/uL Normal 4.4-11.0 [facility] Comment on above: Performed By: #### L 501.9985, L100.0100, L502.0250, L500.4100, L500.4050 #### [facility] [address] [place], [address] Calculated very low density lipoprotein (VLDL) cholesterol measurementOrdered By: INDIRA ISABEL on 04-29-2024 VLDL Cholesterol 20 mg/dL 5-40 [facility] Comprehensive Metabolic Prof ilon 04-29-2024 Albumin [Mass/Vol] 4.0 g/dL Normal 3.4-4.8 [facility] Comment on above: Performed By: #### L 500.4050 #### [facility] [address] [place], [address] Albumin/Globulin [Mass ratio] 1.3 {ratio} Normal 0.9-2.4 [facility] Comment on above: Performed By: #### L 500.4050 #### [facility] [address] [place], [address] ALK PHOS 87 U/L Normal 35-104 [facility] Comment on above: Performed By: #### L 500.4050 #### [facility] [address] [place], [address] ALT [Catalytic activity/Vol] 18 U/L Normal <=34 [facility] Comment on above: Performed By: #### L 500.4050 #### [facility] [address] [place], [address] Anion gap [Moles/Vol] 13 mmol/L Normal 5-15 [facility] Comment on above: Performed By: #### L 500.4050 #### [facility] [address] [place], [address] AST [Catalytic activity/Vol] 28 U/L Normal <=31 [facility] Comment on above: Performed By: #### L 500.4050 #### [facility] [address] [place], [address] Bilirubin [Mass/Vol] 0.30 mg/dL Normal 0.00-1.30 [facility] Comment on above: Performed By: #### L 500.4050 #### [facility] [address] [place], [address] BUN/CRE 28.5 RATIO High 10-20 [facility] Comment on above: Performed By: #### L 500.4050 #### [facility] [address] [place], [address] Calcium [Mass/Vol] 9.8 mg/dL Normal 7.6-11.0 [facility] Comment on above: Performed By: #### L 500.4050 #### [facility] [address] [place], [address] Chloride [Moles/Vol] 104 mmol/L Normal 96-108 [facility] Comment on above: Performed By: #### L 500.4050 #### [facility] [address] [place], [address] CO2 [Moles/Vol] 22.2 mmol/L Normal 22.0-29.0 [facility] Comment on above: Performed By: #### L 500.4050 #### [facility] [address] [place], [address] Creatinine [Mass/Vol] 0.6 mg/dL Normal 0.6-1.0 [facility] Comment on above: Performed By: #### L 500.4050 #### [facility] [address] [place], [address] GFR/1.73 sq M.predicted among non-blacks MDRD (S/P/Bld) [Vol rate/Area] 90 mL/min/{1.73_m2} Normal >60 [facility] Comment on above: Result Comment: mL/m in/1.73m2 CKD-EPI Creatinine Equation (2020) Performed By: #### L 500.4050 #### [facility] [address] [place], [address] Globulin (S) [Mass/Vol] 3.1 g/dL Normal 2.2-4.2 [facility] Comment on above: Performed By: #### L 500.4050 #### [facility] [address] [place], [address] Glucose [Mass/Vol] 89 mg/dL Normal 70-99 [facility] Comment on above: Performed By: #### L 500.4050 #### [facility] [address] [place], [address] Potassium [Moles/Vol] 5.3 mmol/L High 3.3-5.1 [facility] Comment on above: Performed By: #### L 500.4050 #### [facility] [address] [place], [address] Sodium [Moles/Vol] 139 mmol/L Normal 133-145 [facility] Comment on above: Performed By: #### L 500.4050 #### [facility] [address] [place], [address] T PROT 7.1 g/dL Normal 5.9-8.4 [facility] Comment on above: Performed By: #### L 500.4050 #### [facility] [address] [place], [address] Urea nitrogen [Mass/Vol] 18 mg/dL Normal 4-19 [facility] Comment on above: Performed By: #### L 500.4050 #### [facility] [address] [place], [address] ALB Normal 3.4-4.8 [facility] Comment on above: Result Comment: PUTT ING UNDER DIFFERENT REQ Performed By: #### L 501.9985, L100.0100, L502.0250, L500.4100, L500.4050 #### [facility] [address] [place], [address] ALK PHOS Normal 35-104 [facility] Comment on above: Result Comment: PUTT ING UNDER DIFFERENT REQ Performed By: #### L 501.9985, L100.0100, L502.0250, L500.4100, L500.4050 #### [facility] [address] [place], [address] ALT Normal <=34 [facility] Comment on above: Result Comment: PUTT ING UNDER DIFFERENT REQ Performed By: #### L 501.9985, L100.0100, L502.0250, L500.4100, L500.4050 #### [facility] [address] [place], [address] AST Normal <=31 [facility] Comment on above: Result Comment: PUTT ING UNDER DIFFERENT REQ Performed By: #### L 501.9985, L100.0100, L502.0250, L500.4100, L500.4050 #### [facility] [address] [place], [address] BUN Normal 4-19 [facility] Comment on above: Result Comment: PUTT ING UNDER DIFFERENT REQ Performed By: #### L 501.9985, L100.0100, L502.0250, L500.4100, L500.4050 #### [facility] [address] [place], [address] BUN/CRE Normal 10-20 [facility] Comment on above: Result Comment: PUTT ING UNDER DIFFERENT REQ Performed By: #### L 501.9985, L100.0100, L502.0250, L500.4100, L500.4050 #### [facility] [address] [place], [address] Calcium Normal 8.5-10.1 [facility] Comment on above: Result Comment: PUTT ING UNDER DIFFERENT REQ Performed By: #### L 501.9985, L100.0100, L502.0250, L500.4100, L500.4050 #### [facility] [address] [place], [address] CL Normal 98-107 [facility] Comment on above: Result Comment: PUTT ING UNDER DIFFERENT REQ Performed By: #### L 501.9985, L100.0100, L502.0250, L500.4100, L500.4050 #### [facility] [address] [place], [address] CO2 Normal 21.0-32.0 [facility] Comment on above: Result Comment: PUTT ING UNDER DIFFERENT REQ Performed By: #### L 501.9985, L100.0100, L502.0250, L500.4100, L500.4050 #### [facility] [address] [place], [address] CREAT,SERUM Normal 0.6-1.0 [facility] Comment on above: Result Comment: PUTT ING UNDER DIFFERENT REQ Performed By: #### L 501.9985, L100.0100, L502.0250, L500.4100, L500.4050 #### [facility] [address] [place], [address] eGFR Normal >60 [facility] Comment on above: Result Comment: PUTT ING UNDER DIFFERENT REQ Performed By: #### L 501.9985, L100.0100, L502.0250, L500.4100, L500.4050 #### [facility] [address] [place], [address] GAP Normal 5-15 [facility] Comment on above: Result Comment: PUTT ING UNDER DIFFERENT REQ Performed By: #### L 501.9985, L100.0100, L502.0250, L500.4100, L500.4050 #### [facility] [address] [place], [address] GLU Normal 70-99 [facility] Comment on above: Result Comment: PUTT ING UNDER DIFFERENT REQ Performed By: #### L 501.9985, L100.0100, L502.0250, L500.4100, L500.4050 #### [facility] [address] [place], [address] Potassium Normal 3.5-5.1 [facility] Comment on above: Result Comment: PUTT ING UNDER DIFFERENT REQ Performed By: #### L 501.9985, L100.0100, L502.0250, L500.4100, L500.4050 #### [facility] [address] [place], [address] T BILI Normal 0.00-1.30 [facility] Comment on above: Result Comment: PUTT ING UNDER DIFFERENT REQ Performed By: #### L 501.9985, L100.0100, L502.0250, L500.4100, L500.4050 #### [facility] [address] [place], [address] T PROT Normal 5.9-8.4 [facility] Comment on above: Result Comment: PUTT ING UNDER DIFFERENT REQ Performed By: #### L 501.9985, L100.0100, L502.0250, L500.4100, L500.4050 #### [facility] [address] [place], [address] Comprehensive Metabolic Profil Normal 136-145 [facility] Comment on above: Result Comment: PUTT ING UNDER DIFFERENT REQ Performed By: #### L 501.9985, L100.0100, L502.0250, L500.4100, L500.4050 #### [facility] [address] [place], [address] Creatinine Unsp time (U) [Ma ss/Vol]Ordered By: INDIRA ISABEL on 04-29-2024 Creatinine (U) [Mass/Vol] 48.00 mg/dL NO RANGE EST. [facility] Creatinine [Moles/Vol]Ordere d By: INDIRA ISABEL on 04-29-2024 Creatinine [Mass/Vol] 0.6 mg/dL 0.6-1.0 [facility] Eosinophil percentageOrdered By: INDIRA ISABEL on 04-29-2024 Eosinophils/100 WBC (Bld) 3.7 % 0-5 [facility] Erythrocyte distribution wid th ratioOrdered By: INDIRA ISABEL on 04-29-2024 Erythrocyte distribution width (RBC) [Ratio] 13.1 % 11.6-14.6 [facility] Erythrocyte distribution wid th standard deviationOrdered By: INDIRA ISABEL on 04-29-2024 Erythrocyte distribution width (RBC) [Entitic vol] 49.6 fL High 35.1-43.9 [facility] GFR/1.73 sq M.predicted isauro g non-blacks MDRD (S/P/Bld) [Vol rate/Area]Ordered By: INDIRA ISABEL on 04-29-2024 Estimated GFR (MDRD) Non-Af Amer 90 >60 [facility] Comment on above: mL/min/1.73m2 CKD-EP I Creatinine Equation (2020) Hematocrit Auto (Bld) [Volum e fraction]Ordered By: INDIRA ISABEL on 04-29-2024 Hematocrit (Bld) [Volume fraction] 41.7 % 37-47 [facility] Hemoglobin A1c percentageOrd ered By: INDIRA ISABEL on 04-29-2024 HbA1c (Bld) [Mass fraction] 6.0 % >5.7 [facility] Hemoglobin measurementOrdere d By: INDIRA ISABEL on 04-29-2024 Hemoglobin (Bld) [Mass/Vol] 12.6 g/dL 12.0-15.0 [facility] Immature granulocytes/100 WB C Auto (Bld)Ordered By: INDIRA ISABEL on 04-29-2024 Immature granulocytes/100 WBC (Bld) 0.600 % 0.0-0.9 [facility] Comment on above: IG% - Immature Granu locytes (promyelocytes, myelocytes and metamyelocytes) > 1% indicates that a LEFT SHIFT is Present. LDL calc ser/plasOrdered By: INDIRA ISABEL on 04-29-2024 LDL Cholesterol, Calculated 62 mg/dL [facility] Comment on above: Rbjiutulmm=114-351 m g/dL & Higher Kcpn=291 mg/dL or greater Laboratory - Chemistry and C hemistry - challengeOrdered By: INDIRA ISABEL on 04-29-2024 AST [Catalytic activity/Vol] 28 U/L <32 [facility] Lipid Profileon 04-29-2024 HDL Normal [facility] Comment on above: Result Comment: PUTT ING UNDER DIFFERENT REQ The drugs N-Acetylcysteine and Metamizole may falsely depress this assay. Performed By: #### L 501.9985, L100.0100, L502.0250, L500.4100, L500.4050 #### [facility] [address] [place], [address] TRIG Normal [facility] Comment on above: Result Comment: PUTT ING UNDER DIFFERENT REQ The drugs N-Acetylcysteine and Metamizole may falsely depress this assay. Performed By: #### L 501.9985, L100.0100, L502.0250, L500.4100, L500.4050 #### [facility] [address] [place], [address] CHOL Normal 200 [facility] Comment on above: Result Comment: PUTT ING UNDER DIFFERENT REQ Performed By: #### L 501.9985, L100.0100, L502.0250, L500.4100, L500.4050 #### [facility] [address] [place], [address] LDL Normal 0-130 [facility] Comment on above: Result Comment: PUTT ING UNDER DIFFERENT REQ Performed By: #### L 501.9985, L100.0100, L502.0250, L500.4100, L500.4050 #### [facility] [address] [place], [address] VLDL Normal 5-40 [facility] Comment on above: Result Comment: PUTT ING UNDER DIFFERENT REQ Performed By: #### L 501.9985, L100.0100, L502.0250, L500.4100, L500.4050 #### [facility] [address] [place], [address] Lymphocytes Auto (Unsp spec) [#/Vol]Ordered By: INDIRA ISABEL on 04-29-2024 Lymphocytes (Bld) [#/Vol] 1.62 10*3/uL 0.83-4.5 1 [facility] Lymphocytes/100 WBC Auto (Un sp spec)Ordered By: INDIRA ISABEL on 04-29-2024 Lymphocytes/100 WBC (Bld) 29.9 % 19-41 [facility] MCV (mean corpuscular volume ) determinationOrdered By: INDIRA ISABEL on 04-29-2024 MCV (RBC) [Entitic vol] 102.7 fL High 81-99 [facility] Mean corpuscular hemoglobin (MCH) determinationOrdered By: INDIRA ISABEL on 04-29-2024 MCH (RBC) [Entitic mass] 31.0 pg 27.0-32.0 [facility] Mean corpuscular hemoglobin concentration (MCHC) determinationOrdered By: INDIRA ISABEL on 04-29-2024 MCHC (RBC) [Mass/Vol] 30.2 g/dL Low 32-36 [facility] Mean platelet volume determi nationOrdered By: INDIRA ISABEL on 04-29-2024 Platelet mean volume (Bld) [Entitic vol] 11.5 fL 6.2-12.0 [facility] Microalbumin/creat ratio urO rdered By: INDIRA ISABEL on 04-29-2024 Urine Microalbumin/Creatinine Ratio 600.0 mg/g CRE [facility] Monocyte percentageOrdered B y: INDIRA ISABEL on 04-29-2024 Monocytes/100 WBC (Bld) 8.5 % 0-10 [facility] Neutrophil percentageOrdered By: INDIRA ISABEL on 04-29-2024 Neutrophils/100 WBC (Bld) 56.9 % 47-70 [facility] Nucleated red blood cell per centageOrdered By: INDIRA ISABEL on 04-29-2024 Nucleated RBC/100 WBC (Bld) [Ratio] 0 % 0-5 [facility] Platelet countOrdered By: NAIMA ISABEL on 04-29-2024 Platelets (Bld) [#/Vol] 190 10*3/uL 150-450 [facility] RBC Auto (Bld) [#/Vol]Ordere d By: INDIRA ISABEL on 04-29-2024 RBC (Bld) [#/Vol] 4.06 10*6/uL Low 4.2-5.4 [facility] Screening total cholesterol/ high density lipoprotein (HDL) cholesterol ratioOrdered By: INDIRA ISABEL on 04-29-2024 Cholesterol.total/Cholest devonte in HDL [Mass ratio] 2.35 {ratio} [facility] Serum globulin measurementOr dered By: INDIRA ISABEL on 04-29-2024 Globulin (S) [Mass/Vol] 3.1 g/dL 2.2-4.2 [facility] Serum glucose measurement (m ass/volume)Ordered By: INDIRA ISABEL on 04-29-2024 Glucose [Mass/Vol] 89 mg/dL 70-99 [facility] Serum or plasma alanine ruiz otransferase (ALT) measurementOrdered By: INDIRA ISABEL on 04-29-2024 ALT [Catalytic activity/Vol] 18 U/L <35 [facility] Serum or plasma albumin tim urement (mass/volume)Ordered By: INDIRA ISABEL on 04-29-2024 Albumin [Mass/Vol] 4.0 g/dL 3.4-4.8 [facility] Serum or plasma albumin/glob ulin mass ratioOrdered By: INDIRA ISABEL on 04-29-2024 Albumin/Globulin [Mass ratio] 1.3 {ratio} 0.9-2.4 [facility] Serum or plasma alkaline manjinder sphatase measurementOrdered By: INDIRA ISABEL on 04-29-2024 ALP [Catalytic activity/Vol] 87 U/L 35-104 [facility] Serum or plasma anion gap de termination (moles/volume)Ordered By: INDIRA ISABEL on 04-29-2024 Anion gap [Moles/Vol] 13 mmol/L 5-15 [facility] Serum or plasma calcium tim urement (mass/volume)Ordered By: INDIRA ISABEL on 04-29-2024 Calcium [Mass/Vol] 9.8 mg/dL 7.6-11.0 [facility] Serum or plasma cholesterol in HDL measurement (mass/volume)Ordered By: INDIRA ISABEL on 04-29-2024 Cholesterol in HDL [Mass/Vol] 61 mg/dL >40 [facility] Comment on above: National Cholesterol Education Program (NCEP) guidelines:<40 mg/dL: Low HDL-cholesterol (major risk factor for CHD)>= 60 mg/dL: High HDL-cholesterol (negative risk factor for CHD)HDL-cholesterol is affected by a number of factors, e.g. smoking, exercise, hormones, sex and age. Serum or plasma cholesterol measurement (mass/volume)Ordered By: INDIRA ISABEL on 04-29-2024 Cholesterol [Mass/Vol] 144 mg/dL <201 [facility] Comment on above: Cholesterol level, D esirable <200 mg/dLBorderline high cholesterol 200-239 mg/dLHigh cholesterol >=240 mg/dLRecommendations of the NCEP Adult Treatment Panel for the following risk-cutoff thresholds for the [place] population. Serum or plasma potassium me asurementOrdered By: INDIRA ISABEL on 04-29-2024 Potassium [Moles/Vol] 5.3 mmol/L High 3.3-5.1 [facility] Serum or plasma sodium measu rement (moles/volume)Ordered By: INDIRA ISABEL on 04-29-2024 Sodium [Moles/Vol] 139 mmol/L 133-145 [facility] Serum or plasma urea nitroge n measurement (mass/volume)Ordered By: INDIRA ISABEL on 04-29-2024 Urea nitrogen [Mass/Vol] 18 mg/dL 4-19 [facility] Total proteinOrdered By: ANN-MARIE ISABEL on 04-29-2024 Protein [Mass/Vol] 7.1 g/dL 5.9-8.4 [facility] Triglycerides measurementOrd ered By: INDIRA ISABEL on 04-29-2024 Triglyceride [Mass/Vol] 102 mg/dL <199 [facility] Comment on above: The drugs N-Acetylcy steine and Metamizole may falsely depress this assay. Normal range: <150 mg/dLBorderline High: 150-199 mg/dLHigh: 200-499 mg/dLVery High: >500 mg/dL White blood cell (WBC) count Ordered By: INDIRA ISABEL on 04-29-2024 WBC (Bld) [#/Vol] 5.4 10*3/uL 4.4-11.0 [facility] OCT MACULA CIRRUS OU (BOTH E YES)on 04-10-2024 [facility]narrative[facility] CBC W/Diff, Automatedon 10-03 Absolute Lymph 1.72 X10 3/uL Normal 0.83-4.51 [facility] Comment on above: Performed By: #### L 501.9985, L501.9520, L502.0250, L500.4100, L500.4050, L100.0100 #### [facility] [address] [place], [address] Absolute Neut 2.9 X10 3/uL Normal 2.0-7.7 [facility] Comment on above: Performed By: #### L 501.9985, L501.9520, L502.0250, L500.4100, L500.4050, L100.0100 #### [facility] [address] [place], [address] Basophils/100 WBC (Bld) 0.5 % Normal 0-1 [facility] Comment on above: Performed By: #### L 501.9985, L501.9520, L502.0250, L500.4100, L500.4050, L100.0100 #### [facility] [address] [place], [address] Eosinophils/100 WBC (Bld) 5.1 % High 0-5 [facility] Comment on above: Performed By: #### L 501.9985, L501.9520, L502.0250, L500.4100, L500.4050, L100.0100 #### [facility] [address] [place], [address] Erythrocyte distribution width (RBC) [Ratio] 13.2 % Normal 11.6-14.6 [facility] Comment on above: Performed By: #### L 501.9985, L501.9520, L502.0250, L500.4100, L500.4050, L100.0100 #### [facility] [address] [place], [address] Hematocrit (Bld) [Volume fraction] 37.8 % Normal 37-47 [facility] Comment on above: Performed By: #### L 501.9985, L501.9520, L502.0250, L500.4100, L500.4050, L100.0100 #### [facility] [address] [place], [address] Hemoglobin (Bld) [Mass/Vol] 11.7 g/dL Low 12.0-15.0 [facility] Comment on above: Performed By: #### L 501.9985, L501.9520, L502.0250, L500.4100, L500.4050, L100.0100 #### [facility] [address] [place], [address] IG% 0.200 Normal 0.0-0.9 [facility] Comment on above: Result Comment: IG% - Immature Granulocytes (promyelocytes, myelocytes and metamyelocytes) > 1% indicates that a LEFT SHIFT is Present. Performed By: #### L 501.9985, L501.9520, L502.0250, L500.4100, L500.4050, L100.0100 #### [facility] [address] [place], [address] Lymphocytes/100 WBC (Bld) 31.5 % Normal 19-41 [facility] Comment on above: Performed By: #### L 501.9985, L501.9520, L502.0250, L500.4100, L500.4050, L100.0100 #### [facility] [address] [place], [address] MCH (RBC) [Entitic mass] 30.9 pg Normal 27.0-32.0 [facility] Comment on above: Performed By: #### L 501.9985, L501.9520, L502.0250, L500.4100, L500.4050, L100.0100 #### [facility] [address] [place], [address] MCHC (RBC) [Mass/Vol] 31.0 g/dL Low 32-36 [facility] Comment on above: Performed By: #### L 501.9985, L501.9520, L502.0250, L500.4100, L500.4050, L100.0100 #### [facility] [address] [place], [address] MCV (RBC) [Entitic vol] 99.7 fL High 81-99 [facility] Comment on above: Performed By: #### L 501.9985, L501.9520, L502.0250, L500.4100, L500.4050, L100.0100 #### [facility] [address] [place], [address] Monocytes/100 WBC (Bld) 9.2 % Normal 0-10 [facility] Comment on above: Performed By: #### L 501.9985, L501.9520, L502.0250, L500.4100, L500.4050, L100.0100 #### [facility] [address] [place], [address] Neutrophils/100 WBC (Bld) 53.5 % Normal 47-70 [facility] Comment on above: Performed By: #### L 501.9985, L501.9520, L502.0250, L500.4100, L500.4050, L100.0100 #### [facility] [address] [place], [address] Nucleated RBC (Bld) [#/Vol] 0 10*3/uL Normal 0-5 [facility] Comment on above: Performed By: #### L 501.9985, L501.9520, L502.0250, L500.4100, L500.4050, L100.0100 #### [facility] [address] [place], [address] Platelet mean volume (Bld) [Entitic vol] 11.0 fL Normal 6.2-12.0 [facility] Comment on above: Performed By: #### L 501.9985, L501.9520, L502.0250, L500.4100, L500.4050, L100.0100 #### [facility] [address] [place], [address] Platelets (Bld) [#/Vol] 219 10*3/uL Normal 150-450 [facility] Comment on above: Performed By: #### L 501.9985, L501.9520, L502.0250, L500.4100, L500.4050, L100.0100 #### [facility] [address] [place], [address] RBC (Bld) [#/Vol] 3.79 10*6/uL Low 4.2-5.4 [facility] Comment on above: Performed By: #### L 501.9985, L501.9520, L502.0250, L500.4100, L500.4050, L100.0100 #### [facility] [address] [place], [address] RDW SD 48.3 fl High 35.1-43.9 [facility] Comment on above: Performed By: #### L 501.9985, L501.9520, L502.0250, L500.4100, L500.4050, L100.0100 #### [facility] [address] [place], [address] WBC (Bld) [#/Vol] 5.5 10*3/uL Normal 4.4-11.0 [facility] Comment on above: Performed By: #### L 501.9985, L501.9520, L502.0250, L500.4100, L500.4050, L100.0100 #### [facility] [address] [place], [address] Comprehensive Metabolic Prof ilon 10-22-2023 Albumin [Mass/Vol] 3.4 g/dL Normal 3.2-5.0 [facility] Comment on above: Performed By: #### L 501.9985, L501.9520, L502.0250, L500.4100, L500.4050, L100.0100 #### [facility] [address] [place], [address] Albumin/Globulin [Mass ratio] 0.9 {ratio} Normal 0.9-2.4 [facility] Comment on above: Performed By: #### L 501.9985, L501.9520, L502.0250, L500.4100, L500.4050, L100.0100 #### [facility] [address] [place], [address] ALK P 90 U/L Normal 45-117 [facility] Comment on above: Performed By: #### L 501.9985, L501.9520, L502.0250, L500.4100, L500.4050, L100.0100 #### [facility] [address] [place], [address] ALT [Catalytic activity/Vol] 28 U/L Normal 13-56 [facility] Comment on above: Performed By: #### L 501.9985, L501.9520, L502.0250, L500.4100, L500.4050, L100.0100 #### [facility] [address] [place], [address] AST [Catalytic activity/Vol] 27 U/L Normal 15-37 [facility] Comment on above: Performed By: #### L 501.9985, L501.9520, L502.0250, L500.4100, L500.4050, L100.0100 #### [facility] [address] [place], [address] Bilirubin [Mass/Vol] 0.40 mg/dL Normal 0.20-1.00 [facility] Comment on above: Result Comment: For patients on eltrombopag therapy, use of Dimension [place] TBIL is not recommended. Performed By: #### L 501.9985, L501.9520, L502.0250, L500.4100, L500.4050, L100.0100 #### [facility] [address] [place], [address] BUN/CRE 24.7 RATIO High 10-20 [facility] Comment on above: Performed By: #### L 501.9985, L501.9520, L502.0250, L500.4100, L500.4050, L100.0100 #### [facility] [address] [place], [address] CA,Total 8.6 mg/dL Normal 8.5-10.1 [facility] Comment on above: Performed By: #### L 501.9985, L501.9520, L502.0250, L500.4100, L500.4050, L100.0100 #### [facility] [address] [place], [address] Chloride [Moles/Vol] 104 mmol/L Normal 98-107 [facility] Comment on above: Performed By: #### L 501.9985, L501.9520, L502.0250, L500.4100, L500.4050, L100.0100 #### [facility] [address] [place], [address] CO2 [Moles/Vol] 25.0 mmol/L Normal 21.0-32.0 [facility] Comment on above: Performed By: #### L 501.9985, L501.9520, L502.0250, L500.4100, L500.4050, L100.0100 #### [facility] [address] [place], [address] Creatinine [Mass/Vol] 0.81 mg/dL Normal 0.55-1.02 [facility] Comment on above: Result Comment: The validity of the calculated GFR GFRAA in patients over 70 years has not been determined. Clinical correlation is essential. Performed By: #### L 501.9985, L501.9520, L502.0250, L500.4100, L500.4050, L100.0100 #### [facility] [address] [place], [address] EST GFR - AA 88 mL/min Normal >60 [facility] Comment on above: Result Comment: Afri can Belgian GFR Calc Performed By: #### L 501.9985, L501.9520, L502.0250, L500.4100, L500.4050, L100.0100 #### [facility] [address] [place], [address] GAP 6 Normal 5-15 [facility] Comment on above: Performed By: #### L 501.9985, L501.9520, L502.0250, L500.4100, L500.4050, L100.0100 #### [facility] [address] [place], [address] GFR/1.73 sq M.predicted among non-blacks MDRD (S/P/Bld) [Vol rate/Area] 72 mL/min/{1.73_m2} Normal >60 [facility] Comment on above: Result Comment: Non- GFR Calc Performed By: #### L 501.9985, L501.9520, L502.0250, L500.4100, L500.4050, L100.0100 #### [facility] [address] [place], [address] Globulin (S) [Mass/Vol] 3.8 g/dL Normal 2.2-4.2 [facility] Comment on above: Performed By: #### L 501.9985, L501.9520, L502.0250, L500.4100, L500.4050, L100.0100 #### [facility] [address] [place], [address] Glucose [Mass/Vol] 82 mg/dL Normal 74-106 [facility] Comment on above: Performed By: #### L 501.9985, L501.9520, L502.0250, L500.4100, L500.4050, L100.0100 #### [facility] [address] [place], [address] Potassium [Moles/Vol] 5.2 mmol/L High 3.5-5.1 [facility] Comment on above: Performed By: #### L 501.9985, L501.9520, L502.0250, L500.4100, L500.4050, L100.0100 #### [facility] [address] [place], [address] Sodium [Moles/Vol] 135 mmol/L Low 136-145 [facility] Comment on above: Performed By: #### L 501.9985, L501.9520, L502.0250, L500.4100, L500.4050, L100.0100 #### [facility] [address] [place], [address] T PROT 7.2 g/dL Normal 6.4-8.2 [facility] Comment on above: Performed By: #### L 501.9985, L501.9520, L502.0250, L500.4100, L500.4050, L100.0100 #### [facility] [address] [place], [address] Urea nitrogen [Mass/Vol] 20 mg/dL High 7-18 [facility] Comment on above: Performed By: #### L 501.9985, L501.9520, L502.0250, L500.4100, L500.4050, L100.0100 #### [facility] [address] [place], [address] Hemoglobin A1con 10-22-2023 HbA1c (Bld) [Mass fraction] 5.7 % High 3.8-5.6 [facility] Comment on above: Result Comment: Norm al < 5.7 % Prediabetic 5.7 - 6.4 % Diabetic >or= 6.5 % Please note range changes. Performed By: #### L 501.9985, L501.9520, L502.0250, L500.4100, L500.4050, L100.0100 #### [facility] [address] [place], [address] Lipid Profileon 10-22-2023 Cholesterol [Mass/Vol] 146 mg/dL Normal 200 [facility] Comment on above: Result Comment: <200 mg/dL Desirable 200-240 mg/dL Borderline >240 mg/dL High Risk Performed By: #### L 501.9985, L501.9520, L502.0250, L500.4100, L500.4050, L100.0100 #### [facility] [address] [place], [address] Cholesterol in HDL [Mass/Vol] 59 mg/dL Normal [facility] Comment on above: Result Comment: The drugs N-Acetylcysteine and Metamizole may falsely depress this assay. Reference Range HDL <40 mg/dL Low HDL Cholesterol HDL >or= 60 mg/dL High HDL Cholesterol Performed By: #### L 501.9985, L501.9520, L502.0250, L500.4100, L500.4050, L100.0100 #### [facility] [address] [place], [address] Cholesterol in LDL [Mass/Vol] 66 mg/dL Normal 0-130 [facility] Comment on above: Performed By: #### L 501.9985, L501.9520, L502.0250, L500.4100, L500.4050, L100.0100 #### [facility] [address] [place], [address] Cholesterol in VLDL [Mass/Vol] 21 mg/dL Normal 5-40 [facility] Comment on above: Performed By: #### L 501.9985, L501.9520, L502.0250, L500.4100, L500.4050, L100.0100 #### [facility] [address] [place], [address] Triglyceride [Mass/Vol] 106 mg/dL Normal [facility] Comment on above: Result Comment: The drugs N-Acetylcysteine and Metamizole may falsely depress this assay. Serum Triglycerides Reference Interval Normal <150 mg/dL Borderline high 150 - 199 mg/dL High 200 - 499 mg/dL Very High > or = 500 mg/dL Performed By: #### L 501.9985, L501.9520, L502.0250, L500.4100, L500.4050, L100.0100 #### [facility] [address] [place], [address] Microalb:Creat Ratio,Random URon 10-22-2023 Creatinine [Mass/Vol] 191.00 mg/dL Normal NO RANGE EST . [facility] Comment on above: Performed By: #### L 501.9985, L501.9520, L502.0250, L500.4100, L500.4050, L100.0100 #### [facility] [address] [place], [address] MALB:CRE 28.0 mg/g CRE Normal <30 mg/g CRE [facility] Comment on above: Performed By: #### L 501.9985, L501.9520, L502.0250, L500.4100, L500.4050, L100.0100 #### [facility] [address] [place], [place], [id number] MICROALBUMIN,UR 53.4 mg/L Normal NO RANGE EST. [facility] Comment on above: Performed By: #### L 501.9985, L501.9520, L502.0250, L500.4100, L500.4050, L100.0100 #### [facility] [address] [place], [place], [address] Thyroid Stim Hormone (TSH)on 10-22-2023 TSH 3.930 uIU/mL High 0.358-3.740 [facility] Comment on above: Performed By: #### L 501.9985, L501.9520, L502.0250, L500.4100, L500.4050, L100.0100 #### [facility] [address] [place], [place], [id number] OCT MACULA CIRRUS OU (BOTH E YES)on 10-04-2023 [facility] Radiology Study observation (narrative) [facility] ICD REMOTE CHECKon 4 AV Delay Adaptive Paced Minimum (ms) 140 ms [facility] AV Delay Adaptive Sensed Minimum (ms) 140 ms [facility] Gregory LV Pacing Amplitude (volts) 2.0 V [facility] Gregory LV Pacing Pulse Width (ms) 0.5 ms [facility] gregory LV Sensing Amplitude (mvolts) 1.0 mV [facility] Gregory RA Pacing Amplitude (volts) 2.0 V [facility] Gregory RA Pacing Polarity BI [facility] Gregory RA Pacing Pulse Width (ms) 0.5 ms [facility] Gregory RA Sensing Amplitude (mvolts) 0.25 mV [facility] Gregory RA Sensing Polarity BI [facility] Gregory RV Pacing Amplitude (volts) 2.5 V [facility] Gregory RV Pacing Polarity BI [facility] Gregory RV Pacing Pulse Width (ms) 0.5 ms [facility] Gregory RV Sensing Amplitude (mvolts) 0.3 mV [facility] Gregory RV Sensing Polarity BI [facility] Detection Configuration (Vent) 2 - Zone [facility] FastVT_Detection Interval 273 ms [facility] FastVT_Therapy Configuration 1 ATP(s) + 8 Shock(s) [facility] ICD FastVT DetectionStatus ENABLED [facility] ICD-AMS EPISODES 170 {beats}/min [facility] ICD-ATP Episodes (Vent) 0 [facility] ICD-ATRIALFIBRILLATION 3 Cl [facility] ICD-ATRIALTACHYCARDIA 3 [facility] ICD-Device Mfg BSX [facility] ICD-LEADIMPEDANCEATRIAL 392 ohm [facility] ICD-Percent Pacing (Atrial) 19 % [facility] ICD-Percent Pacing (Vent) 100 % [facility] ICD-Shocks Aborted (Vent) 0 [facility] [id number] 0 [facility] ICD-SHOCKSABORTED 0 [facility] ICD-SHOCKSDELIVEREDVENTRI CULAR 0 [facility] ICD-Ventricular Fibrillation 0 [facility] ICD-VVDELAY_MS 0 ms [facility] Implant Date 05/19/2020 [facility] Lead Impedance (LV) 1063 ohm [facility] Lead Impedance (RV) 590 ohm [facility] Lead Impedance High Voltage 51 ohm [facility] Lead1 Mfg CPM [facility] Lead2 Mfg GDT [facility] Lead3 Mfg GDT [facility] Location RA [facility] Location RV [facility] Location LV [facility] Lower Rate (bpm) 60 {beats}/min [facility] LV PACING % 100 % [facility] Max Sensor Rate (bpm) 130 {beats}/min [facility] MDT_PROG_TACHY_ZONE_DETEC TIONS_STATUS ENABLED [facility] Model G151 DYNAGEN GYNECOLOGIST-D [facility] Model 4470 Fineline II Sterox EZ [facility] Model 0185 [place] G [facility] Model 4543 EasyTrak 2 IS-1, 90 cm [facility] Pacing Mode DDD [facility] Serial Number [id number] [facility] Serial Number [id number] [facility] Serial Number [id number] [facility] Serial Number [id number] [facility] Test Charge Energy 23 J [facility] Test Charge Time 10.6 s [facility] Therapy Status (Vent) Enabled [facility] Thresh LV Capture Amplitude (volts) 1.0 V [facility] Thresh LV Capture Duration (ms) 0.5 ms [facility] Thresh RA Capture Amplitude (volts) 0.9 V [facility] Thresh RA Capture Duration (ms) 0.5 ms [facility] Thresh RV Capture Amplitude (VOLTS) 0.9 V [facility] Thresh RV Capture Duration (MS) 0.5 ms [facility] Tracking Rate (bpm) 130 {beats}/min [facility] VF Zone Detection Interval 273 ms [facility] VF Zone Therapy Configuration 1 ATP(s) + 8 Shock(s) [facility] 07/18/2023 GYNECOLOGIST-D REMOTE EVALUATION: Processed 07/18/23. PRESENTING EGM: AP-/BIVP [...] CARDIAC DATA AND REPORT, Scanned Documents section. [facility] No Panel Informationon 07-17 BLANK _ [facility] ICD-ATRIALTACHYCARDIA 0 [facility] ICD-Fast Ventricular Tachycardia 0 [facility] Implant Date 11/02/2008 [facility] US CAROTID ARTERIES [facility] LABon 06-20-2023 US CAROTID ARTERIES [facility] Non-Invasive Vascular Laboratory [facility] Carotid Duplex Bilateral/Complete Date of service/time: 06/20/2023 [...] Outside order. Results will be faxed to [facility]. -Dr. Daniels . RIGHT SIDE Common [...] antegrade flow noted. Technologist: Darlene Zayas RVT [facility] Referring physician: Juwan Daniels MD Interpreting physician: ART Melendez DO Final CC [facility] : [id number] See Link below for Image Normal [facility] Absolute lymphocyte countOrd ered By: INDIRA ISABEL on 05-23-2023 Lymphocytes Auto (Unsp spec) [#/Vol] 1.29 10*3/uL 0.83-4.51 [facility] Automated lymphocyte count a s percentage of total leukocytesOrdered By: INDIRA ISABEL on 05-23-2023 Lymphocytes/100 WBC Auto (Unsp spec) 27.9 % 19-41 [facility] Basophil percentageOrdered B y: INDIRA ISABEL on 05-23-2023 Basophils/100 WBC (Bld) 0.4 % 0-1 [facility] Bilirubin [Mass/Vol] 0.40 mg/dL 0.20-1.00 [facility] Comment on above: For patients on eltr ombopag therapy, use of Dimension [place] TBIL is not recommended. Chloride [Moles/Vol] 105 mmol/L 98-107 [facility] Cholesterol [Mass/Vol] 160 mg/dL <200 [facility] Comment on above: <200 mg/dL Desirable 200-240 mg/dL Borderline >240 mg/dL High Risk Eosinophils/100 WBC (Bld) 3.5 % 0-5 [facility] Glucose [Mass/Vol] 103 mg/dL 74-106 [facility] Comment on above: Fasting Glucose resu lt from 100 to 125 mg/dL suggests IMPAIRED HOMEOSTASIS per A.D.A. criteria. Hemoglobin (Bld) [Mass/Vol] 12.6 g/dL 12.0-15.0 [facility] Monocytes/100 WBC (Bld) 10.0 % 0-10 [facility] Neutrophils (Bld) [#/Vol] 2.7 10*3/uL 2.0-7.7 [facility] Neutrophils/100 WBC (Bld) 58.0 % 47-70 [facility] Potassium [Moles/Vol] 4.5 mmol/L 3.5-5.1 [facility] Protein [Mass/Vol] 7.3 g/dL 6.4-8.2 [facility] Sodium [Moles/Vol] 139 mmol/L 136-145 [facility] Triglyceride [Mass/Vol] 99 mg/dL <199 [facility] Comment on above: The drugs N-Acetylcy steine and Metamizole may falsely depress this assay.Serum Triglycerides Reference Interval Normal <150 mg/dL Borderline high 150 - 199 mg/dL High 200 - 499 mg/dL Very High > or = 500 mg/dL WBC (Bld) [#/Vol] 4.6 10*3/uL 4.4-11.0 [facility] Determination of erythrocyte mean corpuscular volume (MCV)Ordered By: INDIRA ISABEL on 05-23-2023 MCV (RBC) [Entitic vol] 97.6 fL 81-99 [facility] Erythrocyte distribution wid th ratioOrdered By: INDIRA ISABEL on 05-23-2023 Erythrocyte distribution width (RBC) [Ratio] 12.8 % 11.6-14.6 [facility] Erythrocyte distribution wid th standard deviationOrdered By: INDIRA ISABEL on 05-23-2023 Erythrocyte distribution width (RBC) [Entitic vol] 45.6 fL 35.1-43.9 [facility] Hematocrit Auto (Bld) [Volum e fraction]Ordered By: INDIRA ISABEL on 05-23-2023 Hematocrit (Bld) [Volume fraction] 40.6 % 37-47 [facility] Immature granulocytes/100 WB C Auto (Bld)Ordered By: INDIRA ISABEL on 05-23-2023 Immature granulocytes/100 WBC (Bld) 0.200 % 0.0-0.9 [facility] Comment on above: IG% - Immature Granu locytes (promyelocytes, myelocytes and metamyelocytes) > 1% indicates that a LEFT SHIFT is Present. Laboratory - Chemistry and C hemistry - challengeOrdered By: INDIRA ISABEL on 05-23-2023 Albumin/Globulin [Mass ratio] 0.9 {ratio} 0.9-2.4 [facility] ALP [Catalytic activity/Vol] 72 U/L 45-117 [facility] ALT [Catalytic activity/Vol] 22 U/L 13-56 [facility] Cholesterol in HDL [Mass/Vol] 66 mg/dL >40 [facility] Comment on above: The drugs N-Acetylcy steine and Metamizole may falsely depress this assay. Reference Range HDL <40 mg/dL Low HDL Cholesterol HDL >or= 60 mg/dL High HDL Cholesterol Cholesterol in LDL [Mass/Vol] 74 mg/dL 0-130 [facility] CO2 [Moles/Vol] 30.0 mmol/L 21.0-32.0 [facility] Globulin (S) [Mass/Vol] 3.8 g/dL 2.2-4.2 [facility] Urea nitrogen/Creatinine [Mass ratio] 20.3 mg/mg 10-20 [facility] - Hematology and Cell countsOrdered By: INDIRA ISABEL on 05-23-2023 MCH (RBC) [Entitic mass] 30.3 pg 27.0-32.0 [facility] MCHC (RBC) [Mass/Vol] 31.0 g/dL 32-36 [facility] Nucleated RBC/100 WBC (Bld) [Ratio] 0 % 0-5 [facility] Platelet mean volume (Bld) [Entitic vol] 10.8 fL 6.2-12.0 [facility] Platelets (Bld) [#/Vol] 233 10*3/uL 150-450 [facility] No Panel InformationOrdered By: INDIRA ISABEL on 05-23-2023 Estimated GFR (MDRD) Amer 98 mL/min >60 [facility] Comment on above: GFR Calc Estimated GFR (MDRD) Non-Af Amer 81 mL/min >60 [facility] Comment on above: Non- GFR Calc VLDL Cholesterol 20 mg/dL 5-40 [facility] RBC Auto (Bld) [#/Vol]Ordere d By: INDIRA ISABEL on 05-23-2023 RBC (Bld) [#/Vol] 4.16 10*6/uL 4.2-5.4 [facility] Serum or plasma calcium tim urement (mass/volume)Ordered By: INDIRA ISABEL on 05-23-2023 Calcium [Mass/Vol] 9.0 mg/dL 8.5-10.1 [facility] Serum or plasma creatinine m easurement (mass/volume)Ordered By: INDIRA SIABEL on 05-23-2023 Creatinine [Mass/Vol] 0.74 mg/dL 0.55-1.02 [facility] Comment on above: The validity of the calculated GFR & GFRAA in patients over 70 years has not been determined. Clinical correlation is essential. Serum or plasma urea nitroge n measurement (mass/volume)Ordered By: INDIRA ISABEL on 05-23-2023 Urea nitrogen [Mass/Vol] 15 mg/dL 7-18 [facility] Thin prep Papanicolaou smear with manual screeningOrdered By: INDIRA ISABEL on 05-23-2023 Thin prep Papanicolaou smear with manual screening 3.5 g/dL 3.2-5.0 [facility] Thin prep Papanicolaou smear with manual screening 24 U/L 15-37 [facility] Thin prep Papanicolaou smear with manual screening 4 5-15 [facility] Whole blood hemoglobin A1c/t otal hemoglobin ratio (mass fraction)Ordered By: INDIRA ISABEL on 05-23-2023 HbA1c (Bld) [Mass fraction] 5.6 % 3.8-5.6 [facility] Comment on above: Normal < 5.7 % Predi abetic 5.7 - 6.4 % Diabetic >or= 6.5 % Please note range changes. ICD REMOTE CHECKon 3 AV Delay Adaptive Paced Minimum (ms) 140 ms [facility] AV Delay Adaptive Sensed Minimum (ms) 140 ms [facility] Gregory LV Pacing Amplitude (volts) 2.0 V [facility] Gregory LV Pacing Pulse Width (ms) 0.5 ms [facility] gregory LV Sensing Amplitude (mvolts) 1.0 mV [facility] Gregory RA Pacing Amplitude (volts) 2.0 V [facility] Gregory RA Pacing Polarity BI [facility] Gregory RA Pacing Pulse Width (ms) 0.5 ms [facility] Gregory RA Sensing Amplitude (mvolts) 0.25 mV [facility] Gregory RA Sensing Polarity BI [facility] Gregory RV Pacing Amplitude (volts) 2.5 V [facility] Gregory RV Pacing Polarity BI [facility] Gregory RV Pacing Pulse Width (ms) 0.5 ms [facility] Gregory RV Sensing Amplitude (mvolts) 0.3 mV [facility] Gregory RV Sensing Polarity BI [facility] Detection Configuration (Vent) 2 - Zone [facility] FastVT_Detection Interval 273 ms [facility] FastVT_Therapy Configuration 1 ATP(s) + 8 Shock(s) [facility] ICD FastVT DetectionStatus ENABLED [facility] ICD-AMS EPISODES 170 {beats}/min [facility] ICD-ATP Episodes (Vent) 0 [facility] ICD-ATRIALFIBRILLATION 2 Cl [facility] ICD-ATRIALTACHYCARDIA 2 [facility] ICD-Device Mfg BSX [facility] ICD-LEADIMPEDANCEATRIAL 397 ohm [facility] ICD-Percent Pacing (Atrial) 16 % [facility] ICD-Percent Pacing (Vent) 100 % [facility] ICD-Shocks Aborted (Vent) 0 [id number] [facility] ICD-SHOCKSABORTED 0 [facility] ICD-SHOCKSDELIVEREDVENTRI CULAR 0 [facility] ICD-Ventricular Fibrillation 0 [facility] ICD-VVDELAY_MS 0 ms [facility] Implant Date 05/19/2020 [facility] Lead Impedance (LV) 1058 ohm [facility] Lead Impedance (RV) 647 ohm [facility] Lead Impedance High Voltage 51 ohm [facility] Lead1 Mfg CPM [facility] Lead2 Mfg GDT [facility] Lead3 Mfg GDT [facility] Location RA [facility] Location RV [facility] Location LV [facility] Lower Rate (bpm) 60 {beats}/min [facility] LV PACING % 100 % [facility] Max Sensor Rate (bpm) 130 {beats}/min [facility] MDT_PROG_TACHY_ZONE_DETEC TIONS_STATUS ENABLED [facility] Model G151 DYNAGEN GYNECOLOGIST-D [facility] Model 4470 Fineline II Sterox EZ [facility] Model [address] [place] [place] G [facility] Model 4543 EasyTrak 2 IS-1, 90 cm [facility] Pacing Mode DDD [facility] Serial Number [id number] [facility] Serial Number [id number] [facility] Serial Number [id number] [facility] Serial Number [id number] [facility] Test Charge Energy 23 J [facility] Test Charge Time 10.3 s [facility] Therapy Status (Vent) Enabled [facility] Thresh LV Capture Amplitude (volts) 1.0 V [facility] Thresh LV Capture Duration (ms) 0.5 ms [facility] Thresh RA Capture Amplitude (volts) 0.9 V [facility] Thresh RA Capture Duration (ms) 0.5 ms [facility] Thresh RV Capture Amplitude (VOLTS) 0.9 V [facility] Thresh RV Capture Duration (MS) 0.5 ms [facility] Tracking Rate (bpm) 130 {beats}/min [facility] VF Zone Detection Interval 273 ms [facility] VF Zone Therapy Configuration 1 ATP(s) + 8 Shock(s) [facility] No Panel Informationon 09-18 BLANK _ [facility] ICD-ATRIALTACHYCARDIA 0 [facility] ICD-Fast Ventricular Tachycardia 0 [facility] Implant Date 11/02/2008 [facility] ICD REMOTE CHECKon 3 AV Delay Adaptive Paced Minimum (ms) 140 ms [facility] AV Delay Adaptive Sensed Minimum (ms) 140 ms [facility] Gregory LV Pacing Amplitude (volts) 2.0 V [facility] Gregory LV Pacing Pulse Width (ms) 0.5 ms [facility] gregory LV Sensing Amplitude (mvolts) 1.0 mV [facility] Gregory RA Pacing Amplitude (volts) 2.0 V [facility] Gregory RA Pacing Polarity BI [facility] Gregory RA Pacing Pulse Width (ms) 0.5 ms [facility] Gregory RA Sensing Amplitude (mvolts) 0.25 mV [facility] Gregory RA Sensing Polarity BI [facility] Gregory RV Pacing Amplitude (volts) 2.5 V [facility] Gregory RV Pacing Polarity BI [facility] Gregory RV Pacing Pulse Width (ms) 0.5 ms [facility] Gregory RV Sensing Amplitude (mvolts) 0.3 mV [facility] Gregory RV Sensing Polarity BI [facility] Detection Configuration (Vent) 2 - Zone [facility] FastVT_Detection Interval 273 ms [facility] FastVT_Therapy Configuration 1 ATP(s) + 8 Shock(s) [facility] ICD FastVT DetectionStatus ENABLED [facility] ICD-AMS EPISODES 170 {beats}/min [facility] ICD-ATP Episodes (Vent) 0 [facility] ICD-ATRIALFIBRILLATION 2 Cl [facility] ICD-ATRIALTACHYCARDIA 2 [facility] ICD-Device Mfg BSX [facility] ICD-LEADIMPEDANCEATRIAL 417 ohm [facility] ICD-Percent Pacing (Atrial) 15 % [facility] ICD-Percent Pacing (Vent) 100 % [facility] ICD-Shocks Aborted (Vent) 0 [facility] [id number] 0 [facility] ICD-SHOCKSABORTED 0 [facility] ICD-SHOCKSDELIVEREDVENTRI CULAR 0 [facility] ICD-Ventricular Fibrillation 0 [facility] ICD-VVDELAY_MS 0 ms [facility] Implant Date 05/19/2020 [facility] Lead Impedance (LV) 1039 ohm [facility] Lead Impedance (RV) 666 ohm [facility] Lead Impedance High Voltage 54 ohm [facility] Lead1 Mfg CPM [facility] Lead2 Mfg GDT [facility] Lead3 Mfg GDT [facility] Location RA [facility] Location RV [facility] Location LV [facility] Lower Rate (bpm) 60 {beats}/min [facility] LV PACING % 100 % [facility] Max Sensor Rate (bpm) 130 {beats}/min [facility] MDT_PROG_TACHY_ZONE_DETEC TIONS_STATUS ENABLED [facility] Model G151 DYNAGEN GYNECOLOGIST-D [facility] Model 4470 Fineline II Sterox EZ [facility] Model [address] [place] G [facility] Model 4543 EasyTrak 2 IS-1, 90 cm [facility] Pacing Mode DDD [facility] Serial Number [id number] [facility] Serial Number [id number] [facility] Serial Number [id number] [facility] Serial Number [id number] [facility] Test Charge Energy 23 J [facility] Test Charge Time 10.3 s [facility] Therapy Status (Vent) Enabled [facility] Thresh LV Capture Amplitude (volts) 1.0 V [facility] Thresh LV Capture Duration (ms) 0.5 ms [facility] Thresh RA Capture Amplitude (volts) 0.9 V [facility] Thresh RA Capture Duration (ms) 0.5 ms [facility] Thresh RV Capture Amplitude (VOLTS) 0.9 V [facility] Thresh RV Capture Duration (MS) 0.5 ms [facility] Tracking Rate (bpm) 130 {beats}/min [facility] VF Zone Detection Interval 273 ms [facility] VF Zone Therapy Configuration 1 ATP(s) + 8 Shock(s) [facility] No Panel Informationon 06-16 BLANK _ [facility] ICD-ATRIALTACHYCARDIA 0 [facility] ICD-Fast Ventricular Tachycardia 0 [facility] Implant Date 11/02/2008 [facility] Basophil percentageOrdered B y: Dr. Pena on 05-22-2022 Bilirubin [Mass/Vol] 0.30 mg/dL 0.20-1.00 [facility] Comment on above: For patients on eltr ombopag therapy, use of Dimension [place] TBIL is not recommended. Chloride [Moles/Vol] 107 mmol/L 98-107 [facility] Cholesterol [Mass/Vol] 148 mg/dL <200 [facility] Comment on above: <200 mg/dL Desirable 200-240 mg/dL Borderline >240 mg/dL High Risk Glucose [Mass/Vol] 96 mg/dL 74-106 [facility] Potassium [Moles/Vol] 4.4 mmol/L 3.5-5.1 [facility] Protein [Mass/Vol] 7.1 g/dL 6.4-8.2 [facility] Sodium [Moles/Vol] 140 mmol/L 136-145 [facility] Triglyceride [Mass/Vol] 88 mg/dL <199 [facility] Comment on above: The drugs N-Acetylcy steine and Metamizole may falsely depress this assay.Serum Triglycerides Reference Interval Normal <150 mg/dL Borderline high 150 - 199 mg/dL High 200 - 499 mg/dL Very High > or = 500 mg/dL WBC (Bld) [#/Vol] 5.4 10*3/uL 4.4-11.0 [facility] Blood erythrocytes count (nu mber/volume)Ordered By: Dr. Pena on 05-22-2022 RBC (Bld) [#/Vol] 3.98 10*6/uL 4.2-5.4 [facility] Blood hemoglobin measurement (mass/volume)Ordered By: Dr. Pena on 05-22-2022 Hemoglobin (Bld) [Mass/Vol] 12.3 g/dL 12.0-15.0 [facility] Blood platelet mean volumeOr dered By: Dr. Pena on 05-22-2022 Platelet mean volume (Bld) [Entitic vol] 10.7 fL 6.2-12.0 [facility] Cholesterol in LDL Direct as say [Mass/Vol]Ordered By: Dr. Pena on 05-22-2022 Cholesterol in LDL [Mass/Vol] 78 mg/dL 0-99 [facility] Comment on above: Performed at: [address] [id number] Director: Anmol Morales PhD, Phone: [phone] Determination of erythrocyte mean corpuscular volume (MCV)Ordered By: Dr. Pena on 05-22-2022 MCV (RBC) [Entitic vol] 97.5 fL 81-99 [facility] Hematocrit Auto (Bld) [Volum e fraction]Ordered By: Dr. Pena on 05-22-2022 Hematocrit (Bld) [Volume fraction] 38.8 % 37-47 [facility] - Chemistry and C hemistry - challengeOrdered By: Dr. Pena on 05-22-2022 ALP [Catalytic activity/Vol] 72 U/L 45-117 [facility] ALT [Catalytic activity/Vol] 23 U/L 13-56 [facility] CO2 [Moles/Vol] 25.0 mmol/L 21.0-32.0 [facility] Globulin (S) [Mass/Vol] 3.8 g/dL 2.2-4.2 [facility] Urea nitrogen/Creatinine [Mass ratio] 23.6 mg/mg 10-20 [facility] - Hematology and Cell countsOrdered By: Dr. Pena on 05-22-2022 Erythrocyte distribution width (RBC) [Entitic vol] 46.5 fL 35.1-43.9 [facility] Erythrocyte distribution width (RBC) [Ratio] 12.9 % 11.6-14.6 [facility] MCH (RBC) [Entitic mass] 30.9 pg 27.0-32.0 [facility] - Miscellaneous t estsOrdered By: Dr. Pena on 05-22-2022 Service comment (Unsp spec) [Interp] TNP [facility] Comment on above: Test not performed MCHC Auto (RBC) [Mass/Vol]Or dered By: Dr. Pena on 05-22-2022 MCHC (RBC) [Mass/Vol] 31.7 g/dL 32-36 [facility] No Panel InformationOrdered By: Dr. Pena on 05-22-2022 Estimated GFR (MDRD) Amer 108 mL/min >60 [facility] Comment on above: GFR Calc Estimated GFR (MDRD) Non-Af Amer 89 mL/min >60 [facility] Comment on above: Non- GFR Calc Thyroid Stimulating Hormone (TSH) 4.01 uIU/mL 0.358-3.74 [facility] Vitamin D 25-Hydroxy 81.5 ng/mL [facility] Comment on above: Vitamin D 25(OH) Sta tus Range Deficiency <20 ng/mL (50nmol/L) Insufficiency 20 - 30 ng/mL (50 - 75 nmol/L) Sufficiency 30 - 100 ng/mL (75 - 250 nmol/L) Toxicity >100 ng/mL (>250 nmol/L) Platelets bldOrdered By: Dr. Pena on 05-22-2022 Platelets (Bld) [#/Vol] 245 10*3/uL 150-450 [facility] Serum or plasma albumin tim urement (mass/volume)Ordered By: Dr. Pena on 05-22-2022 Albumin [Mass/Vol] 3.3 g/dL 3.2-5.0 [facility] Serum or plasma albumin/glob ulin mass ratioOrdered By: Dr. Pena on 05-22-2022 Albumin/Globulin [Mass ratio] 0.9 {ratio} 0.9-2.4 [facility] Serum or plasma calcium tim urement (mass/volume)Ordered By: Dr. Pena on 05-22-2022 Calcium [Mass/Vol] 9.1 mg/dL 8.5-10.1 [facility] Serum or plasma cholesterol in HDL measurement (mass/volume)Ordered By: Dr. Pena on 05-22-2022 Cholesterol in HDL [Mass/Vol] 60 mg/dL >40 [facility] Comment on above: The drugs N-Acetylcy steine and Metamizole may falsely depress this assay. Reference Range HDL <40 mg/dL Low HDL Cholesterol HDL >or= 60 mg/dL High HDL Cholesterol Serum or plasma cholesterol in VLDL measurement (mass/volume)Ordered By: Dr. Pena on 05-22-2022 Cholesterol in VLDL [Mass/Vol] 18 mg/dL 5-40 [facility] Serum or plasma creatinine m easurement (mass/volume)Ordered By: Dr. Pena on 05-22-2022 Creatinine [Mass/Vol] 0.68 mg/dL 0.55-1.02 [facility] Comment on above: The validity of the calculated GFR & GFRAA in patients over 70 years has not been determined. Clinical correlation is essential. Serum or plasma low density lipoprotein (LDL) cholesterol measurement (mass/volume)Ordered By: Dr. Pena on 05-22-2022 Cholesterol in LDL [Mass/Vol] 70 mg/dL 0-130 [facility] Serum or plasma urea nitroge n measurement (mass/volume)Ordered By: Dr. Pena on 05-22-2022 Urea nitrogen [Mass/Vol] 16 mg/dL 7-18 [facility] Thin prep Papanicolaou smear with manual screeningOrdered By: Dr. Pena on 05-22-2022 Thin prep Papanicolaou smear with manual screening 22 U/L 15-37 [facility] Thin prep Papanicolaou smear with manual screening 8 5-15 [facility] Whole blood hemoglobin A1c/t otal hemoglobin ratio (mass fraction)Ordered By: Dr. Pena on 05-22-2022 HbA1c (Bld) [Mass fraction] 5.5 % 3.8-5.6 [facility] Comment on above: Normal < 5.7 % Predi abetic 5.7 - 6.4 % Diabetic >or= 6.5 % Please note range changes. ICD REMOTE CHECKon 3 AV Delay Adaptive Paced Minimum (ms) 140 ms [facility] AV Delay Adaptive Sensed Minimum (ms) 140 ms [facility] Gregory LV Pacing Amplitude (volts) 2 V [facility] Gregory LV Pacing Pulse Width (ms) 0.5 ms [facility] gregory LV Sensing Amplitude (mvolts) 1 mV [facility] Gregory RA Pacing Amplitude (volts) 2 V [facility] Gregory RA Pacing Polarity BI [facility] Gregory RA Pacing Pulse Width (ms) 0.5 ms [facility] Gregory RA Sensing Amplitude (mvolts) 0.25 mV [facility] Gregory RA Sensing Polarity BI [facility] Gregory RV Pacing Amplitude (volts) 2.5 V [facility] Gregory RV Pacing Polarity BI [facility] Gregory RV Pacing Pulse Width (ms) 0.5 ms [facility] Gregory RV Sensing Amplitude (mvolts) 0.3 mV [facility] Gregory RV Sensing Polarity BI [facility] Detection Configuration (Vent) 2 - Zone [facility] FastVT_Detection Interval 273 ms [facility] FastVT_Therapy Configuration 1 ATP(s) + 8 Shock(s) [facility] ICD FastVT DetectionStatus ENABLED [facility] ICD-AMS EPISODES 170 {beats}/min [facility] ICD-ATP Episodes (Vent) 0 [facility] ICD-ATRIALFIBRILLATION 2 Cl [facility] ICD-ATRIALTACHYCARDIA 2 [facility] ICD-Device Mfg BSX [facility] ICD-LEADIMPEDANCEATRIAL 420 ohm [facility] ICD-Percent Pacing (Atrial) 13 % [facility] ICD-Percent Pacing (Vent) 100 % [facility] ICD-Shocks Aborted (Vent) 0 [facility] [id number] 0 [facility] ICD-SHOCKSABORTED 0 [facility] ICD-SHOCKSDELIVEREDVENTRI CULAR 0 [facility] ICD-Ventricular Fibrillation 0 [facility] ICD-VVDELAY_MS 0 ms [facility] Implant Date 05/19/2020 [facility] Lead Impedance (LV) 1028 ohm [facility] Lead Impedance (RV) 685 ohm [facility] Lead Impedance High Voltage 55 ohm [facility] Lead1 Mfg CPM [facility] Lead2 Mfg GDT [facility] Lead3 Mfg GDT [facility] Location RA [facility] Location RV [facility] Location LV [facility] Lower Rate (bpm) 60 {beats}/min [facility] LV PACING % 100 % [facility] Max Sensor Rate (bpm) 130 {beats}/min [facility] MDT_PROG_TACHY_ZONE_DETEC TIONS_STATUS ENABLED [facility] Model G151 DYNAGEN GYNECOLOGIST-D [facility] Model 4470 Fineline II Sterox EZ [facility] Model [address] [place] G [facility] Model 4543 EasyTrak 2 IS-1, 90 cm [facility] Pacing Mode DDD [facility] Serial Number [id number] [facility] Serial Number [id number] [facility] Serial Number [id number] [facility] Serial Number [id number] [facility] Test Charge Energy 23 J [facility] Test Charge Time 10.2 s [facility] Therapy Status (Vent) Enabled [facility] Thresh LV Capture Amplitude (volts) 1 V [facility] Thresh LV Capture Duration (ms) 0.5 ms [facility] Thresh RA Capture Amplitude (volts) 0.9 V [facility] Thresh RA Capture Duration (ms) 0.5 ms [facility] Thresh RV Capture Amplitude (VOLTS) 0.9 V [facility] Thresh RV Capture Duration (MS) 0.5 ms [facility] Tracking Rate (bpm) 130 {beats}/min [facility] VF Zone Detection Interval 273 ms [facility] VF Zone Therapy Configuration 1 ATP(s) + 8 Shock(s) [facility] No Panel Informationon 03-16 BLANK _ [facility] ICD-ATRIALTACHYCARDIA 0 [facility] ICD-Fast Ventricular Tachycardia 0 [facility] Implant Date 11/02/2008 [facility] ICD REMOTE CHECKon AV Delay Adaptive Paced Minimum (ms) 140 ms [facility] AV Delay Adaptive Sensed Minimum (ms) 140 ms [facility] Gregory LV Pacing Amplitude (volts) 2 V [facility] Gregory LV Pacing Pulse Width (ms) 0.5 ms [facility] gregory LV Sensing Amplitude (mvolts) 1 mV [facility] Gregory RA Pacing Amplitude (volts) 2 V [facility] Gregory RA Pacing Polarity BI [facility] Gregory RA Pacing Pulse Width (ms) 0.5 ms [facility] Gregory RA Sensing Amplitude (mvolts) 0.25 mV [facility] Gregory RA Sensing Polarity BI [facility] Gregory RV Pacing Amplitude (volts) 2.5 V [facility] Gregory RV Pacing Polarity BI [facility] Gregory RV Pacing Pulse Width (ms) 0.5 ms [facility] Gregory RV Sensing Amplitude (mvolts) 0.3 mV [facility] Gregory RV Sensing Polarity BI [facility] Detection Configuration (Vent) 2 - Zone [facility] FastVT_Detection Interval 273 ms [facility] FastVT_Therapy Configuration 1 ATP(s) + 8 Shock(s) [facility] ICD FastVT DetectionStatus ENABLED [facility] ICD-AMS EPISODES 170 {beats}/min [facility] ICD-ATP Episodes (Vent) 0 [facility] ICD-ATRIALFIBRILLATION 2 Cl [facility] ICD-ATRIALTACHYCARDIA 2 [facility] ICD-Device Mfg BSX [facility] ICD-LEADIMPEDANCEATRIAL 479 ohm [facility] ICD-Percent Pacing (Atrial) 11 % [facility] ICD-Percent Pacing (Vent) 100 % [facility] ICD-Shocks Aborted (Vent) 0 [facility] [id number] 0 [facility] ICD-SHOCKSABORTED 0 [facility] ICD-SHOCKSDELIVEREDVENTRI CULAR 0 [facility] ICD-Ventricular Fibrillation 0 [facility] ICD-VVDELAY_MS 0 ms [facility] Implant Date 05/19/2020 [facility] Lead Impedance (LV) 1057 ohm [facility] Lead Impedance (RV) 631 ohm [facility] Lead Impedance High Voltage 52 ohm [facility] Lead1 Mfg CPM [facility] Lead2 Mfg GDT [facility] Lead3 Mfg GDT [facility] Location RA [facility] Location RV [facility] Location LV [facility] Lower Rate (bpm) 60 {beats}/min [facility] LV PACING % 100 % [facility] Max Sensor Rate (bpm) 130 {beats}/min [facility] MDT_PROG_TACHY_ZONE_DETEC TIONS_STATUS ENABLED [facility] Model G151 DYNAGEN GYNECOLOGIST-D [facility] Model 4470 Fineline II Sterox EZ [facility] Model [address] [place] G [facility] Model 4543 EasyTrak 2 IS-1, 90 cm [facility] Pacing Mode DDD [facility] Serial Number [id number] [facility] Serial Number [id number] [facility] Serial Number [id number] [facility] Serial Number [id number] [facility] Test Charge Energy 23 J [facility] Test Charge Time 10.1 s [facility] Therapy Status (Vent) Enabled [facility] Thresh LV Capture Amplitude (volts) 1 V [facility] Thresh LV Capture Duration (ms) 0.5 ms [facility] Thresh RA Capture Amplitude (volts) 0.9 V [facility] Thresh RA Capture Duration (ms) 0.5 ms [facility] Thresh RV Capture Amplitude (VOLTS) 0.9 V [facility] Thresh RV Capture Duration (MS) 0.5 ms [facility] Tracking Rate (bpm) 130 {beats}/min [facility] VF Zone Detection Interval 273 ms [facility] VF Zone Therapy Configuration 1 ATP(s) + 8 Shock(s) [facility] No Panel Informationon 09-15 BLANK _ [facility] ICD-ATRIALTACHYCARDIA 0 [facility] ICD-Fast Ventricular Tachycardia 0 [facility] Implant Date 11/02/2008 [facility] ICD REMOTE CHECKon 2 AV Delay Adaptive Paced Minimum (ms) 140 ms [facility] AV Delay Adaptive Sensed Minimum (ms) 140 ms [facility] Gregory LV Pacing Amplitude (volts) 2 V [facility] Gregory LV Pacing Pulse Width (ms) 0.5 ms [facility] gregory LV Sensing Amplitude (mvolts) 1 mV [facility] Gregory RA Pacing Amplitude (volts) 2 V [facility] Gregory RA Pacing Polarity BI [facility] Gregory RA Pacing Pulse Width (ms) 0.5 ms [facility] Gregory RA Sensing Amplitude (mvolts) 0.25 mV [facility] Gregory RA Sensing Polarity BI [facility] Gregory RV Pacing Amplitude (volts) 2.5 V [facility] Gregory RV Pacing Polarity BI [facility] Gregory RV Pacing Pulse Width (ms) 0.5 ms [facility] Gregory RV Sensing Amplitude (mvolts) 0.3 mV [facility] Gregory RV Sensing Polarity BI [facility] Detection Configuration (Vent) 2 - Zone [facility] FastVT_Detection Interval 273 ms [facility] FastVT_Therapy Configuration 1 ATP(s) + 8 Shock(s) [facility] ICD FastVT DetectionStatus ENABLED [facility] ICD-AMS EPISODES 170 {beats}/min [facility] ICD-ATP Episodes (Vent) 0 [facility] ICD-ATRIALFIBRILLATION 2 Cl [facility] ICD-ATRIALTACHYCARDIA 2 [facility] ICD-Device Mfg BSX [facility] ICD-LEADIMPEDANCEATRIAL 467 ohm [facility] ICD-Percent Pacing (Atrial) 9 % [facility] ICD-Percent Pacing (Vent) 100 % [facility] ICD-Shocks Aborted (Vent) 0 [facility] [id number] 0 [facility] ICD-SHOCKSABORTED 0 [facility] ICD-SHOCKSDELIVEREDVENTRI CULAR 0 [facility] ICD-Ventricular Fibrillation 0 [facility] ICD-VVDELAY_MS 0 ms [facility] Implant Date 05/19/2020 [facility] Lead Impedance (LV) 999 ohm [facility] Lead Impedance (RV) 626 ohm [facility] Lead Impedance High Voltage 50 ohm [facility] Lead1 Mfg CPM [facility] Lead2 Mfg GDT [facility] Lead3 Mfg GDT [facility] Location RA [facility] Location RV [facility] Location LV [facility] Lower Rate (bpm) 60 {beats}/min [facility] LV PACING % 100 % [facility] Max Sensor Rate (bpm) 130 {beats}/min [facility] MDT_PROG_TACHY_ZONE_DETEC TIONS_STATUS ENABLED [facility] Model G151 DYNAGEN GYNECOLOGIST-D [facility] Model 4470 Fineline II Sterox EZ [facility] Model [address] [place] G [facility] Model 4543 EasyTrak 2 IS-1, 90 cm [facility] Pacing Mode DDD [facility] Serial Number [id number] [facility] Serial Number [id number] [facility] Serial Number [id number] [facility] Serial Number [id number] [facility] Test Charge Energy 23 J [facility] Test Charge Time 10.1 s [facility] Therapy Status (Vent) Enabled [facility] Thresh LV Capture Amplitude (volts) 1 V [facility] Thresh LV Capture Duration (ms) 0.5 ms [facility] Thresh RA Capture Amplitude (volts) 0.9 V [facility] Thresh RA Capture Duration (ms) 0.5 ms [facility] Thresh RV Capture Amplitude (VOLTS) 0.9 V [facility] Thresh RV Capture Duration (MS) 0.5 ms [facility] Tracking Rate (bpm) 130 {beats}/min [facility] VF Zone Detection Interval 273 ms [facility] VF Zone Therapy Configuration 1 ATP(s) + 8 Shock(s) [facility] No Panel Informationon 06-16 BLANK _ [facility] ICD-ATRIALTACHYCARDIA 0 [facility] ICD-Fast Ventricular Tachycardia 0 [facility] Implant Date 11/02/2008 [facility] Encounters Encounter Date Encounter Type Care Provider Facility Start: 05-28-2024 End: 05-28-2024 Emergency department patient visit AYLIN REILLY Facility:[facility] Start: 04-29-2024 End: 04-29-[address] 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, with long-term current use of insulin (HCC); Advanced atrophic 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 Start: 10-22-2023 End: 10-22-2023 ambulatory Anabella Pena Facility:[facility] Start: 10-04-2023 End: 10-04-2023 ambulatory ANABELLA A MITACOHENRY Facility:[facility] Start: 10-04-2023 End: 10-04-2023 Office [...] Start: 06-20-2023 End: 06-20-[facility]23 [facility] Start: 06-14-2023 Follow-up encounter Jovanni pedraza MD Work Phone: [facility] Start: 06-14-2023 Patient encounter procedure Jovanni Wilks MD Work Phone: [facility] Start: 05-23-2023 End: 05-23-2023 ambulatory [facility] Work Phone: Start: 05-23-2023 End: 05-23-2023 Patient encounter procedure [facility] Work Phone: Start: 09-14-2022 Follow-up encounter Jovanni pedraza MD Work Phone: [facility] Start: 09-14-2022 ICD Remote F/U Jovanni Cuevas Work Phone: [facility] Start: 06-22-2022 Telephone encounter Judy GORMAN-C Work Phone: General Surgery Comment on above: 09/06/2022 Colon medin a Start: 06-19-2022 Telephone encounter Anatoly Mane MD Work Phone: [facility] [place] Comment on above: Orders Start: 06-15-2022 Follow-up encounter Jovanni pedraza MD Work Phone: [facility] Start: 06-15-2022 ICD Remote F/U Jovanni Cuevas Work Phone: [facility] Start: 05-22-2022 End: 05-22-2022 ambulatory [facility] Work Phone: Start: 05-22-2022 End: 05-22-2022 Patient encounter procedure [facility] Start: 03-16-2022 Follow-up encounter Jovanni pedraza MD Work Phone: [facility] Start: 03-16-2022 ICD Remote F/U Jovanni Cuevas Work Phone: [facility] Start: 09-15-2021 Follow-up encounter Jovanni pedraza MD Work Phone: [facility] Start: 09-15-2021 ICD Remote F/U Jovanni Cuevas Work Phone: [facility] Start: 06-16-2021 Follow-up encounter Jovanni pedraza MD Work Phone: [facility] Start: 06-16-2021 ICD Remote F/U Jovanni Cuevas Work Phone: [facility] Start: 11-02-2008 Patient encounter procedure Jovanni Wilks MD Work Phone: [facility] Work Phone: Procedures Date Procedure Procedure Detail [...] with subfoveal involvement Expected: 04/25/2025, Expires: 10/02/2025 [facility] Comment on above: Expected: 04/25/2025 , Expires: [...] with subfoveal involvement Expected: 04/25/2025, Expires: 10/02/2025 [facility] Work Phone: Comment on above: Expected: 04/25/2025 , Expires: 10/02/2025 Start: 04-10-2025 Glaucoma screening Dilated Retinal E xam [facility] Start: 10-18-2024 End: 03-27-2025 OCT MACULA CIRRUS OU (BOTH EYES) OCT MACULA CIRRUS OU (BOTH EYES) [facility] Imaging Routine Type 2 diabetes mellitus with both eyes affected by moderate nonproliferative retinopathy without macular edema, with long-term current use of insulin (HCC) Advanced atrophic 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 Expected: 10/18/2024, Expires: 03/27/2025 [facility] Work Phone: Comment on above: Expected: 10/18/2024 , Expires: 03/27/2025 Start: 10-09-2024 End: 10-09-2024 Patient encounter procedure 10/09/2024 9:15 AM EDT Office Visit [facility] [address] [place] [address] Nancy Donovan MD, PhD [address] [place] [address] *DFE/ OCT/OCTa both eyes- full exam. Ophthalmology Comment on above: *DFE/ OCT/OCTa both eyes- full exam. Start: 04-10-2024 End: 04-10-2024 Patient encounter procedure 04/10/2024 9:15 AM EST Office Visit [facility] [address] [place] [address] Nancy Donovan MD, PhD [address] [address] DFE/ OCT both eyes- full exam Ophthalmology Comment on above: DFE/ OCT both eyes- full exam Start: 03-05-2024 Advance Directive Discussion Advance Directive Discussion [facility] Start: 11-04-2023 Covid-19 Vaccine () Covid-19 Vaccine () [facility] Start: 11-04-2023 Influenza vaccination Influenza Vacc ine (#1) [facility] Start: 06-22-2023 BP CONTROLLED (<130/80) BP CONTROLLED (<130/80) [facility] Start: 03-05-2023 Advance Directive Discussion Advance Directive Discussion [facility] Start: 03-05-2023 Behavioral Health Screening Behavioral Health Screening [facility] Start: 11-03-2022 Covid-19 Vaccine () Covid-19 Vaccine ( season) [facility] Start: 11-03-2022 Influenza vaccination [facility] Start: 04-08-2022 COVID-19 VACCINE (5 - Moderna series) COVID-19 VACCINE (5 - Moderna series) [facility] Start: 03-05-2022 ADVANCE DIRECTIVE DISCUSSION ADVANCE DIRECTIVE DISCUSSION [facility] Start: 03-05-2022 DEPRESSION ASSESSMENT DEPRESSION ASS ESSMENT [facility] Start: 11-03-2021 Influenza vaccination [facility] Start: 03-05-2021 ADVANCE DIRECTIVE DISCUSSION ADVANCE DIRECTIVE DISCUSSION [facility] Start: 03-05-2021 DEPRESSION ASSESSMENT DEPRESSION ASS ESSMENT [facility] Start: 06-27-2019 RSV Vaccine (1 - 1-dose 75+ series) RSV Vaccine (1 - 1-dose 75+ series) [facility] Start: 02-12-2017 Pneumococcal Vaccine : 50+ (2 of 2 - PPSV23) Pneumococcal Vaccine: 50+ (2 of 2 - PPSV23) [facility] Start: 02-12-2017 Pneumococcal Vaccine : 65+ (2 of 2 - PPSV23 or PCV20) Pneumococcal Vaccine: 65+ (2 of 2 - PPSV23 or PCV20) [facility] Start: 05-10-2011 Adult depression screening assessment DEPRESSION SCREENING [facility] Start: 2009 BONE DENSITY BONE DENSITY [facility] Start: 2009 PNEUMOVAX AGE 65 AND OVER WITH 5YR LOOKBACK (#1) PNEUMOVAX AGE 65 AND OVER WITH 5YR LOOKBACK (#1) [facility] Start: 2009 Screening for osteoporosis Bone Density Screening [facility] Start: 04-06-2009 Hepatitis B surface antibody level LDL CHOLESTEROL [facility] Start: 10-04-2008 Hemoglobin A1c measurement HbA1C [facility] Start: 10-04-2008 Hemoglobin A1c/Hemoglobin.total in Blood HBA1C [facility] Start: 2004 RSV Vaccine (1 - 1-dose 60+ series) RSV Vaccine (1 - 1-dose 60+ series) [facility] Start: 1994 SHINGRIX VACCINE (1 of 2) SHINGRIX VACCINE (1 of 2) [facility] Start: 06-27-1963 Urine microalbumin profile [facility] Start: 1962 ANNUAL PCP TEAM CHRONIC DISEASE VISIT ANNUAL PCP TEAM CHRONIC DISEASE VISIT [facility] Start: 1962 Anxiety Screening Anxiety Screening [facility] Start: 1962 BP CONTROLLED (<130/80) BP CONTROLLED (<130/80) [facility] Start: 1962 Depression Screening Depression Scre ening [facility] Start: 1954 3 comp foot exam completed DIABETIC FOOT EXAM [facility] Start: 1954 Diabetic foot examination Diabetic Foot Exam [facility] Start: 1954 Glaucoma screening Dilated Retinal E xam [facility] Start: 1954 Hepatitis B screening URINE AL BUMIN:CREATININE RATIO [facility] Start: 1954 Hepatitis C antibody , confirmatory test DILATED RETINAL EXAM [facility] Start: 1950 PNEUMOCOCCAL: 65+ (1 - PCV) PNEUMOCOCCAL: 65+ (1 - PCV) [facility] Start: 1949 COVID-19 VACCINE (1) COVID-19 VACCIN E (1) [facility] Start: 1944 COVID-19 VACCINE (#1) COVID-19 VACCI NE (#1) [facility] End: 06-23-2023 Screening colonoscopy COLONOSCOPY SCREENING Endoscopy Routine History of colonic polyps 1 Occurrences starting 06/22/2022 until 06/23/2023 [facility] Work Phone: Comment on above: 1 Occurrences starti ng 06/22/2022 until 06/23/2023 Immunizations Immunization Date Immunization Notes Care Provider Deep freed 11-30-2022 influenza virus vacc ine, unspecified formulation Nancy Donovan MD, PhD Work Phone: [facility] 12-25-2008 influenza virus vacc ine, unspecified formulation Jovanni Wilks MD Work Phone: [facility] Payers Date Payer Category Payer Self-pay 2009 Medicare MEDICARE MEDICAR E A AND B [id number] 2009-Present [phone] [place] [address] Medicare [id number] 2009 Medicare MEDICARE MEDICAR E A AND B [id number] 2009-Present [phone] [address] [address] [place] [address] Medicare [id number] 2009 Medicare [id number] 2006 Unknown [employer] CARD PPO OOS [id number] 2006-Present [phone] [address] [place] [address] PPO [id number] 2006 Unknown [employer] CARD PPO OOS [id number] 2006-Present [phone] [address] [place] [address] PPO [id number] 2006 Unknown [id number] Unknown [id number] Unknown [id number] Social History Date Type Detail Facility Start: 05-09-2010 End: 05-22-2022 Tobacco smoking status NHIS Never smoked tobacco [facility] Start: 05-09-2010 End: 06-21-2022 Tobacco use and exposure Smokeless tobacco non-user [facility] Start: 05-17-2020 End: 04-10-2024 Alcohol intake Current non-drinker of alcohol (finding) [facility] Start: 1945 Sex Assigned At Not on file [facility] Start: 05-22-2022 Tobacco smoking stat us OHIS Unknown if ever smoked [facility] Start: 1945 Sex Assigned At Female W [facility] Start: 06-21-2022 End: 06-20-2023 History of Social function [facility] Start: 06-21-2022 End: 06-20-2023 Tobacco use panel [facility] National Score (1-100), lower number is lower risk 51 [facility] Start: 05-13-2024 Sex Female (finding) Woabdirashid r [facility] Medical Equipment Procedure Code Equipment Code Equipment Origin al Text Equipment Identifier Dates [id number] Dynagen [id number] Start: 05-19-2020 [id number] Easy trak 2 Is-1, 90 Cm [id number] Start: 11-02-2008 [id number] End[address] jerry [place] G [id number] Start: 11-02-2008 Other [address] [place] [id number] Start: 11-02-2008 Clinical Notes 04-10-2008 to 04-10-2024 Nancy Donovan MD, PhD - 04/10/2024 9:21 AM ESTPatient InstructionsNancy Donovan MD, PhD - 10/04/2023 10:30 AM EDTTelephone Encounter - Judy Beasley PA-C - 06/27/2022 11:20 AM EDT Note Date & Type Note Facility 04-10-2024 Note Date of Procedure 04/10/2024. 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 OCT Macula Interpretation Right Eye Abnormal foveal contour. Findings include Drusen, IS/OS junction, Atrophy; Negative for Intraretinal fluid, Cystoid macular edema, Subretinal fluid. Left Eye Normal foveal contour. Findings include Drusen, IS/OS junction, Atrophy; Negative for Intraretinal fluid, Cystoid macular edema, Subretinal fluid. [facility]EISS 04-10-2024 Note HNO ID: [id number] Author: NANCY DONOVAN MD, PhD Service: ? [...] of its relevant components. Nancy Donovan MD [facility] 04-10-2024 History of Presen t illness Narrative [...] Nancy Donovan MD documented in this encounter [facility] 10-04-2023 Note Date of Procedure 10/04/2023. Interpretation [...] the AREDS 2 Eye Vitamins. These are zkqc-kzp-[id number] high potency antioxidant supplements with select vitamins [...] large trials funded by the [employer] [place] found that beta-carotene may increase lung cancer [...] Intermediate AMD can be detected by an allied health professional, but usually involves little or no [...] prescription medications, and a considerable number use hpas-leb-psnoocs drugs, dietary supplements, and herbal medicines. High-dose supplemental nutrients can sometimes interfere with medications and compete with other vital nutrients for absorption into the body. Individuals who are considering taking an AREDS formulation should discuss this with their primary care doctors and/or eye care nurse rn. AMSLER GRID: While wearing your reading glasses, hold the grid at a normal reading distance. With one eye covered, look at the black dot in the center of grid. Note any lines that are wavy, broken or missing. Repeat for the other eye and report any changes to Dr. Donovan at [phone] documented in this encounter [facility] 10-04-2023 History of Presen t illness Narrative [...] Nancy Donovan MD documented in this encounter [facility] 10-04-2023 Note HNO ID: [id number] Author: NANCY DONOVAN MD, PhD Service: ? [...] of its relevant components. Nancy Donovan MD [facility] 07-18-2023 Note GYNECOLOGIST-D REMOTE EVALUAT ION: Processed 07/18/23. PRESENTING EGM: [...] CARDIAC DATA AND REPORT, Scanned Documents section. 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 Patient given direct line if she changes her mind Cassidy [employer] Driver 09/06/2022 Colon ly documented in this encounter [facility] 06-19-2022 Miscellaneous Notes Called to go over checklist with patient for screening colonoscopy. Has an implanted defibrillator & needs to go to hospital setting. documented in this encounter [facility] 04-10-2008 History of Past i llness Narrative [...] of this encounter (statuses as of 06/16/2021) [facility] History of Past illness Narrative* Problem Noted [...] of this encounter (statuses as of 09/15/2021) [facility] History of Past illness Narrative* Problem Noted [...] of this encounter (statuses as of 03/16/2022) [facility] History of Past illness Narrative* Problem Noted [...] of this encounter (statuses as of 06/17/2022) [facility] History of Past illness Narrative* Problem Noted [...] of this encounter (statuses as of 06/19/2022) [facility] History of Past illness Narrative* Problem Noted [...] of this encounter (statuses as of 07/06/2022) [facility] History of Past illness Narrative* Problem Noted [...] of this encounter (statuses as of 09/18/2022) [facility] noteNo assessment information availableWMercy [facility] Work Phone: Evaluation note* Diagnosis History of colonic polyps- Primary Personal history of colonic polyps documented in this encounter [facility] note* Diagnosis Type 2 diabetes mellitus with both eyes affected by moderate nonproliferative retinopathy without macular edema, with long-term current use of insulin (HCC)- Primary Advanced atrophic 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 documented in this encounter [facility] note* Diagnosis Type 2 diabetes mellitus with both eyes affected by moderate nonproliferative retinopathy without macular edema, with long-term current use of insulin (HCC) Advanced atrophic 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 documented in this encounter [facility] for referral (narrative)* Outpatient Procedure (Routine) - Authorized Specialty Diagnoses / Procedures Referred By Ifrah ding Referred To Contact [facility] Diagnoses History of colonic polyps Procedures COLONOSCOPY SCREENING COLONOSCOPY FLX DX W/COLLJ SPEC WHEN PFRMD Judy Beasley PA-C [address] [place] [address] [facility] [place] [address] [place] [address] Referral ID Status Reason Start Date Expiration Date Visits Requested Visits Authorized [id number] Authorized Auto-Generat ed Referral 06/22/2022 06/23/2023 1 [facility]No reason for referral information availableWMercy Health [facility] Work Phone: Advance Directives No Advanced Directives Records FoundDocuments on File Type Date Recorded Patient Cyber Incident Handler Expl anation Advance Directive(s) Advance Directive(s) 05/12/2020 [...] or prosecute any alcohol or drug abuse patient.[facility] Hospital[facility] the event this information is protected by the Federal Confidentiality of Alcohol and Drug Abuse Patient Records regulations: The Federal rules restrict any use of the information to criminally investigate or prosecute any alcohol or drug abuse patient.[facility] HospitalIn the event this information is protected by the Federal Confidentiality of Alcohol and Drug Abuse Patient Records regulations: The Federal rules restrict any use of the information to criminally investigate or prosecute any alcohol or drug abuse patient.[facility] HospitalIn the event this information is protected by the Federal Confidentiality of Alcohol and Drug Abuse Patient Records regulations: The Federal rules restrict any use of the information to criminally investigate or prosecute any alcohol or drug abuse patient.[facility] HospitalIn the event this information is protected by the Federal Confidentiality of Alcohol and Drug Abuse Patient Records regulations: The Federal rules restrict any use of the information to criminally investigate or prosecute any alcohol or drug abuse patient.[facility] HospitalIn the event this information is protected by the Federal Confidentiality of Alcohol and Drug Abuse Patient Records regulations: The Federal rules restrict any use of the information to criminally investigate or prosecute any alcohol or drug abuse patient.[facility] HospitalIn the event this information is protected by the Federal Confidentiality of Alcohol and Drug Abuse Patient Records regulations: The Federal rules restrict any use of the information to criminally investigate or prosecute any alcohol or drug abuse patient.[facility] HospitalIn the event this information is protected by the Federal Confidentiality of Alcohol and Drug Abuse Patient Records regulations: The Federal rules restrict any use of the information to criminally investigate or prosecute any alcohol or drug abuse patient.[facility] HospitalIn the event this information is protected by the Federal Confidentiality of Alcohol and Drug Abuse Patient Records regulations: The Federal rules restrict any use of the information to criminally investigate or prosecute any alcohol or drug abuse patient.[facility] HospitalIn the event this information is protected by the Federal Confidentiality of Alcohol and Drug Abuse Patient Records regulations: The Federal rules restrict any use of the information to criminally investigate or prosecute any alcohol or drug abuse patient.[facility] Care Teams (unrecognized sec tion and content) Microbiology Quality Control Technician Relationship Specialty Start Date End Date Anabella Pena [address] [place] [address] PCP - General 11/03/08 Microbiology Quality Control Technician Relationship Specialty Start Date End Date Anabella Pena [address] [place] [id number] PCP - General 11/03/08 Microbiology Quality Control Technician Relationship Specialty Start Date End Date Anabella Pena [address] [place] [id number] PCP - General 11/03/08 Team Status: Active Member Role Status Dates Dr. Anabella Pena MD Family Provider Active Dr. Anabella Pena MD Primary Care Provider Active Team Status: Inactive Member Role Status Dates Dr. Anabella Pena MD Primary Care Provid er, Attending Provider, Referring Provider Active Microbiology Quality Control Technician Relationship Specialty Start Date End Date MitaAnabella dang [address] [place] [address] PCP - General 11/03/08 Microbiology Quality Control Technician Relationship Specialty Start Date End Date Anabella Pena [address] [place] [address] PCP - General 11/03/08 Microbiology Quality Control Technician Relationship Specialty Start Date End Date Anabella Pena Ángel [address] [place] [address] PCP - General 11/03/08 Team Status: Inactive Member Role Status Dates Dr. Anabella Pena MD Primary Care Provider Active INDIRA ISABEL DO Attending Provider, Referring Prov ider Active Microbiology Quality Control Technician Relationship Specialty Start Date End Date Anabella Pena Ángel [address] [address] PCP - General 11/03/08 Microbiology Quality Control Technician Relationship Specialty Start Date End Date Anabella Pena [address] [address] PCP - General 11/03/08 Microbiology Quality Control Technician Relationship Specialty Start Date End Date Anabella Pena [address] [address] PCP - General 11/03/08 Team Status: Inactive [...] section and content) DATE CREATED AUTHOR 04/12/2024 [facility] DATE CREATED AUTHOR AUTHOR'S ORGANIZ ATION 05/30/2024 [facility] DATE CREATED AUTHOR AUTHOR'S ORGANIZ ATION 10/01/2024 [facility] FOR RECORDS PERTAINING TO PATIENTS WHO ARE [...] BE BASED ON THE PRIMARY CLINICAL RECORDS. [facility] [employer] [facility]. provides no warranty or guarantee of the accuracy or completeness of information in this document.
[2024-10-13 10:13] LABS: Hematocrit 39.7 % (37-47); Hemoglobin 12.6 g/dL (12.0-15.0); Immature Granulocytes Count 0.010 X10^3/uL (0.0-0.0); Mean Corp Hgb Conc 31.7 g/dL (32-36); Mean Corpuscular Volume 98.3 fL (81-99); Mean Platelet Vol. 10.7 fl (6.2-12.0); NRBC Flagged by Analyzer 0 % (0-5); Platelet Count 239 K/mm3 (150-450); RBC Distribution Width CV 13.2 % (11.6-14.6); RBC Distribution Width SD 47.8 fl (35.1-43.9); Red Blood Count 4.04 M/mm3 (4.2-5.4); White Blood Count 5.8 K/mm3 (4.4-11.0)
[2024-10-13 11:05] LABS: AST(SGOT) 25 U/L (<=31); Alanine Aminotransfer ALT/SGPT 16 U/L (<=34); Albumin, Serum 4.1 g/dL (3.4-4.8); Alkaline Phosphatase 75 U/L (35-104); Anion Gap 12 (5-15); BUN 23 mg/dL (4-19); BUN/Creat Ratio 28.7 RATIO (10-20); Calcium,Total 9.8 mg/dL (7.6-11.0); Carbon Dioxide 22.3 mmol/L (21.0-32.0); Chloride 97 mmol/L (98-108); Cholesterol 145 mg/dL (<=200); Globulin 3.0 g/dL (2.2-4.2); Glucose 169 mg/dL (70-99); Low Density Lipoprotein Calc. 59 mg/dL; Potassium 5.4 mmol/L (3.3-5.1); Triglycerides 113 mg/dL; Very Low Density Lipoprotein 23 mg/dL (5-40); cholesterol:hdl ratio screen 2.30
[2024-10-13 11:21] LABS: Creatinine, Urine (random) 40.20 mg/dL (28.00-217.00)
[2024-10-13 11:33] LABS: Microalbumin,Random Urine 13.8 mg/L (<20 mg/L)
== END | disposition home or self-care (01) ==
LOC: MTLAB 08:36
PROVIDERS: PCP Family Medicine; Referring Provider Family Medicine; Visit Provider Family Medicine
DX: E03.9 Hypothyroidism, unspecified (principal); E11.65 Type 2 diabetes mellitus with hyperglycemia; I10 Essential (primary) hypertension; E78.2 Mixed hyperlipidemia
CPT/HCPCS: 36415; 80053; 80061; 82043; 82570; 83036; 84443; 85025